=== PATIENT | male | born 1935 | race Caucasian/White ===

== ENCOUNTER 2017-11-21 13:08 | Inpatient (IN) ==
[2017-11-21] MEDS ORDERED: Nitroglycerin 1 INCH/GM PACKET TP ONE (14:16)
--- NOTE | 2017-11-21 14:22 | Emergency Department Note ---
Disposition Clinical Impression: Shortness of breath on exertion Atrial fibrillation Qualifiers: Atrial fibrillation type: unspecified Qualified Code(s): I48.91 - Unspecified atrial fibrillation Congestive heart failure Qualifiers: Heart failure type: combined systolic and diastolic Heart failure chronicity: acute Qualified Code(s): I50.41 - Acute combined systolic (congestive) and diastolic (congestive) heart failure Disposition: Admitted As Inpatient Condition: Undetermined Time of Disposition: 15:16 General Adult HPI - General Chief complaint: ED Arrhythmia/Palpitations Stated complaint: sent from [facility] for afib, no pain /no sob Time Seen by Provider: 11/21/17 13:57 Source: patient, EMS Limitations: no limitations - History of Present Illness HPI Narrative: 82-year-old male with history of hypertension arrives to the emergency department with complaint of shortness of breath as well as constipation. The patient went to an urgent care for constipation was found to be in A. fib. At that time the patient was sent to [facility] emergency department for evaluation. He states that he has been experiencing orthopnea, bilateral lower extremity swelling as well as the shortness of breath for roughly 5-7 days. The patient denies any other complaints and is comfortable here in the emergency department. Chest x-ray demonstrates pulmonary edema and pleural effusions. The patient does have significant bilateral lower extremity swelling. He denies any chest pain this time and denies any other complaints. He has no previous history of atrial fibrillation and takes no anticoagulation. Pain Scale: 0 - Related Data Home Medications Medication Instructions Recorded Confirmed Aspirin Enteric Coated [Aspirin EC] 81 mg PO DAILY 11/21/17 11/21/17 Cetirizine HCl [Zyrtec] 10 mg PO DAILY PRN 11/21/17 11/21/17 Chlordiazepoxide [Librium] 5 mg PO TID PRN 11/21/17 11/21/17 Fexofenadine HCl [Allergy Relief] 180 mg PO DAILY PRN 11/21/17 11/21/17 Fluticasone Propionate Nasal 100 mcg NS DAILY PRN 11/21/17 11/21/17 [Flonase] Lisinopril [Zestril] 40 mg PO BID 11/21/17 11/21/17 Multivitamin [One Daily 1 each PO DAILY 11/21/17 11/21/17 Multivitamin] Terazosin [Hytrin] 5 mg PO BID 11/21/17 11/21/17 Triamcinolone Acetonide 1 appl TP BID PRN 11/21/17 11/21/17 Allergies Allergy/AdvReac Type Severity Reaction Status Date / Time Penicillins Allergy Rash Verified 11/21/17 13:18 All systems ED: reviewed and negative except as stated. Constitutional: Denies: fever, chills, weakness ENT ED: Denies: congestion Cardiovascular: Reports: orthopnea, edema. Denies: chest pain Respiratory: Reports: dyspnea. Denies: cough, wheezes Gastrointestinal: Reports: constipation. Denies: abdominal pain, nausea, vomiting Musculoskeletal: Denies: back pain, neck pain Past Medical History - Past Medical History Attestation: Yes The following information was validated with the patient. Source: patient Medical history: Reports: hypertension Surgical history: Reports: non-contributory - Social History Smoking Status: Never smoker Smokeless Tobacco Status: No Alcohol use: Reports: none Drug use: Reports: none Physical Exam - General Limitations: no limitations General appearance: alert - Head Head exam: atraumatic, normocephalic, normal inspection - Neck Neck exam: Present: normal inspection, full ROM, trachea midline - Respiratory Respiratory exam: Present: other (Rales on examination) - Cardiovascular Cardiovascular exam: Present: regular rate, irregular rhythm, normal heart sounds - Abdominal Exam Abdominal exam: Present: soft, Non-Tender. Absent: tenderness, distention, guarding, rebound, rigidity - Extremities Exam Extremities exam: Present: full ROM, pedal edema. Absent: tenderness - Neurological Exam Neurological exam: Present: alert, oriented X3 - Skin Skin exam: Present: warm, dry, intact, normal color Course Vital Signs Temperature 97.3 F L 11/21/17 13:19 Pulse Rate 96 11/21/17 13:19 Respiratory Rate 20 11/21/17 13:19 Blood Pressure 195/94 11/21/17 13:19 O2 Sat by Pulse Oximetry 96 11/21/17 13:19 Temperature 97.8 F 11/21/17 14:26 Pulse Rate 84 11/21/17 15:26 Respiratory Rate 20 11/21/17 17:30 Blood Pressure 194/111 11/21/17 17:30 O2 Sat by Pulse Oximetry 96 11/21/17 15:26 Oxygen Delivery Oxygen Delivery Room Air Medical Decision Making - MDM Narrative Medical decision making narrative: Patient's workup here in the emergency department demonstrates findings consistent with CHF as well as a new onset atrial fibrillation. The patient was given nitroglycerin for his dyspnea and pulmonary effusions. The patient case was discussed with the hospitalist and he was accepted by Dr. Cabrera. Hospitalist requested consultation to cardiology and they were called. The patient will be admitted to the hospitals at this time. - Lab Data Lab results reviewed: Yes I reviewed the patient's lab results. Result diagrams: 11/21/17 14:19 11/21/17 14:19 Lab Results 11/21/17 11/21/17 11/21/17 Range/Units 14:19 14:19 14:19 WBC 7.2 (4.3-11.1) K/mcL RBC 4.78 (4.19-5.50) M/mcL Hgb 14.4 (12.9-16.9) g/dL Hct 45.0 (37.5-50.1) % MCV 94.1 (83.0-100.0) fL MCH 30.1 (28.0-33.3) pg MCHC 32.0 (31.6-35.5) g/dL RDW 15.5 H (11.5-14.5) % Plt Count 163 (140-400) K/mcL MPV 10.2 (9.4-12.4) fL Immature Gran % 0.3 (0-4) % Seg Neutrophils % 78.1 % Lymphocytes % 13.0 % Monocytes % 7.5 % Eosinophils % 0.7 % Basophils % 0.4 % Neutrophils # 5.6 (1.6-8.9) K/mcL Lymphocytes # 0.9 (0.6-4.6) K/mcL Monocytes # 0.5 (0.0-1.3) K/mcL Eosinophils # 0.1 (0.0-0.6) K/mcL Basophils # 0.0 (0.0-0.2) K/mcL Sodium 141 (136-145) mEq/L Potassium 3.9 (3.5-5.1) mEq/L Chloride 106 (98-107) mEq/L Carbon Dioxide 26 (23-29) mEq/L BUN 18 (8-23) mg/dL Creatinine 1.26 (0.70-1.30) mg/dL Est GFR ( Amer) > 60 (> 60) Est GFR (Non-Af Amer) 55 L (> 60) BUN/Creatinine Ratio 14 (6-26) Glucose 110 H (70-105) mg/dL Calculated Osmolality 295 (280-300) Calcium 9.5 (8.6-10.3) mg/dL Troponin I 0.03 (< 0.04) ng/mL TSH 1.772 (0.340-5.600) mcIU/mL - Radiology Data Radiology results reviewed: Yes I reviewed the patient's radiology results. Chest X-Ray 11/21/17 13:27 IMPRESSION: Pleural effusions and bibasilar atelectasis. Moderate cardiomegaly D/ / Pravin Penaloza MD / Pravin Penaloza MD Interpreting Provider: Pravin Penaloza MD - EKG Data EKG #1 EKG attestation: Yes I reviewed and interpreted this EKG. EKG results narrative: Heart rate [address]pm. [address]. No ST elevation or ST depression noted. Attestation Statement - Attestation Attestation: I examined this patient and my medical decision-making was reviewed with the Resident Physician. I agree with the documented findings, disposition and treatment plan as described except to the extent set forth below. Patient presents to [facility] emergency department with a chief complaint of constipation. The patient went to the urgent care for this complaint and I noticed that he was short of breath. They did a chest x-ray and EKG that showed he was in atrial fibrillation. This is new for him so he was sent to the ED. Patient has been having bowel movements with her small. He has been having some dyspnea on exertion. On examination he is in no acute distress. He is mildly tachypneic. Lung sounds diminished in the bases. Abdomen soft and nontender. Plan. Cardiac workup. Patient has pleural effusions. He has Nitropaste. Given Lasix. KUB does not show a fecal impaction. He is admitted to medicine with cardiology consult. His rate is controlled without IV medications.
[2017-11-21 14:55] LABS: BUN/Creatinine Ratio 14 (6-26); Basophils % 0.4 %; Blood Urea Nitrogen 18 mg/dL (8-23); Calcium 9.5 mg/dL (8.6-10.3); Carbon Dioxide 26 mEq/L (23-29); Chloride 106 mEq/L (98-107); Eosinophils # 0.1 K/mcL (0.0-0.6); Eosinophils % 0.7 %; Glucose 110 mg/dL (70-105); Hemoglobin 14.4 g/dL (12.9-16.9); Immature Granulocytes % 0.3 % (0-4); Lymphocytes # 0.9 K/mcL (0.6-4.6); Mean Corpuscular Hemoglobin 30.1 pg (28.0-33.3); Mean Corpuscular Volume 94.1 fL (83.0-100.0); Mean Platelet Volume 10.2 fL (9.4-12.4); Monocytes # 0.5 K/mcL (0.0-1.3); Monocytes % 7.5 %; Neutrophils # 5.6 K/mcL (1.6-8.9); Osmolality,Calculated 295 (280-300); Platelet Count 163 K/mcL (140-400); Potassium 3.9 mEq/L (3.5-5.1); Red Blood Count 4.78 M/mcL (4.19-5.50); Red Cell Distribution Width 15.5 % (11.5-14.5); Segmented Neutrophils % 78.1 %; Sodium 141 mEq/L (136-145); eGFR For African Americans > 60 (> 60); eGFR For Non-African Americans 55 (> 60)
[2017-11-21 14:57] LABS: Troponin I 0.03 ng/mL (< 0.04)
[2017-11-21 15:10] LABS: Thyroid Stimulating Hormone 1.772 mcIU/mL (0.340-5.600)
[2017-11-21] MEDS ORDERED: NON-FORMULARY MEDICATION 1 EACH EACH (Fexofenadine Hcl [Allergy Relief] 180 MG) PO PRN (17:29)
[2017-11-21] MEDS ORDERED: Loratadine 10 MG TABLET PO PRN (17:29)
[2017-11-21] MEDS ORDERED: Fluticasone Propionate Nasal 50 MCG/SPRAY BOTTLE NS PRN (17:29)
--- NOTE | 2017-11-21 17:30 | Internal Med History&Physical ---
Date of Encounter: 11/21/17 Time of Encounter: 17:28 Assessment and Plan (1) Acute decompensated heart failure Current visit: Yes Status: Acute CXR shows fluid overload, patient with orthopnea and lower extremity edema. - Lasix 20 mg IV BID - Cardiology consultation - Keep head of bed elevated - Strict I/Os - Fluid restrict - Cardiac diet (2) Atrial fibrillation Current visit: Yes Status: Acute New onset, likely due to heart failure Currently HR is within normal limits and not on any rate lowering medications - Lopressor 5 mg IV prn tachycardia - Cardiology consult - Echocardiogram - Heparin drip started based on stroke risk Qualifiers: Atrial fibrillation type: unspecified Qualified Code(s): I48.91 - Unspecified atrial fibrillation (3) Hypertension Current visit: Yes Status: Acute Resume lisinopril Place hydralazine prn Qualifiers: Hypertension type: essential hypertension Qualified Code(s): I10 - Essential (primary) hypertension (4) Congestive heart failure Current visit: Yes Status: Acute Echocardiogram Cardiology consulted, recommendations appreciated Qualifiers: Heart failure type: combined systolic and diastolic Heart failure chronicity: acute Qualified Code(s): I50.41 - Acute combined systolic ( congestive) and diastolic (congestive) heart failure Internal Medicine - H&P: HPI History of present illness: 82-year-old male with history of hypertension arrives to the emergency department with complaint of shortness of breath as well as constipation. The patient went to an urgent care for constipation was found to be in A. fib. and so brought to [facility]. Has complaints of orthopnea, lower extremity swelling and dyspnea. He denies chest pain, n/v, palpitations, diaphoresis. Chest x-ray in ED showed pulmonary edema and pleural effusions. He has not had any recent cardiac workup. Past Med Surg Social Fam HX - Past Medical History Medical history: hypertension - Past Surgical History Surgical History: non-contributory - Social History Smoking Status: Never smoker Smokeless Tobacco Status: No Alcohol use: none Drug use: none Internal Medicine - H&P: Meds Aspirin Enteric Coated [Aspirin EC] 81 mg PO DAILY 11/21/17 [History] Cetirizine HCl [Zyrtec] 10 mg PO DAILY PRN 11/21/17 [History] Chlordiazepoxide [Librium] 5 mg PO TID PRN 11/21/17 [History] Fexofenadine HCl [Allergy Relief] 180 mg PO DAILY PRN 11/21/17 [History] Fluticasone Propionate Nasal [Flonase] 100 mcg NS DAILY PRN 11/21/17 [History] Lisinopril [Zestril] 40 mg PO BID 11/21/17 [History] Multivitamin [One Daily Multivitamin] 1 each PO DAILY 11/21/17 [History] Terazosin [Hytrin] 5 mg PO BID 11/21/17 [History] Triamcinolone Acetonide 1 appl TP BID PRN 11/21/17 [History] 3 Allergy/AdvReac Type Severity Reaction Status Date / Time Penicillins Allergy Rash Verified 11/21/17 13:18 All Systems PM: A 10-system review of systems was performed and is negative for pertinent findings except as documented above in the HPI. - Constitutional Vitals: Temp Pulse Resp BP Pulse Ox 97.8 F 84 20 173/117 96 11/21/17 14:26 11/21/17 15:26 11/21/17 16:44 11/21/17 16:44 11/21/17 15:26 - Head Head exam: Present: atraumatic, normocephalic - Eye Eye exam: Present: PERRL, conjuntiva pink, sclera anicteric Pupils: Present: PERRL - Neck Neck exam general surgery: Present: supple, trachea midline. Absent: lymphadenopathy - Respiratory Respiratory exam: Present: rales. Absent: accessory muscle use, wheezes - Cardiovascular Cardiovascular exam: Present: irregular rhythm, +S1, +S2. Absent: diastolic murmur, gallop, rubs, systolic murmur - GI/Abdominal GI/Abdominal exam: Present: normal bowel sounds, soft, no peritoneal signs. Absent: distended, tenderness - Extremities Exam Extremities exam: Present: warm, radial pulses palpable and symmetrical. Absent : calf tenderness, cyanotic, pedal edema - Neurological Exam Neurological exam: Present: CN II-XII intact, oriented X3, no focal deficits. Absent: pronater drift, facial droop, speech deficit - Skin Skin exam: Present: dry, intact Internal Med - H&P Results - Labs CBC & Chem 7: 11/21/17 14:19 11/21/17 14:19
[2017-11-21] MEDS ORDERED: Sennosides/Docusate Sodium TABLET PO ONE (17:32)
[2017-11-21] MEDS ORDERED: Ondansetron 4 MG/2 ML VIAL IVP PRN (17:33)
[2017-11-21] MEDS ORDERED: *HR* Metoprolol 5 MG/5 ML VIAL IVP PRN (17:38)
[2017-11-21] MEDS ORDERED: *HR* LORazepam 2 MG/ML VIAL IVP ONE (17:39)
[2017-11-21] MEDS ORDERED: Naloxone 0.4 MG/ML INJ IVP PRN (17:40)
[2017-11-21] MEDS ORDERED: Heparin 25,000 UNIT/500 ML D5W 25,000 UNIT/500 ML BAG IVC SCH (17:45)
[2017-11-21 18:27] LABS: Magnesium 2.4 mg/dL (1.6-2.6); Phosphorous 3.5 mg/dL (2.7-4.5)
[2017-11-21 18:32] LABS: Troponin I 0.07 ng/mL (< 0.04)
[2017-11-21 18:41] LABS: Thyroid Stimulating Hormone 1.821 mcIU/mL (0.340-5.600)
[2017-11-21] MEDS: Furosemide 40 MG/4 ML VIAL IVP SCH (22:28)
[2017-11-21] MEDS: Sennosides/Docusate Sodium TABLET PO SCH (22:28)
[2017-11-21] MEDS: Lisinopril 20 MG TABLET PO SCH (22:28)
[2017-11-22 03:33] LABS: Basophils % 0.4 %; Eosinophils # 0.1 K/mcL (0.0-0.6); Hematocrit 45.1 % (37.5-50.1); Hemoglobin 14.2 g/dL (12.9-16.9); Immature Granulocytes % 0.4 % (0-4); Lymphocytes # 1.4 K/mcL (0.6-4.6); Lymphocytes % 17.9 %; Mean Corpuscular HGB Conc 31.5 g/dL (31.6-35.5); Mean Corpuscular Hemoglobin 29.5 pg (28.0-33.3); Mean Corpuscular Volume 93.8 fL (83.0-100.0); Monocytes # 0.7 K/mcL (0.0-1.3); Monocytes % 9.3 %; Neutrophils # 5.6 K/mcL (1.6-8.9); Platelet Count 182 K/mcL (140-400); Red Blood Count 4.81 M/mcL (4.19-5.50); Red Cell Distribution Width 15.5 % (11.5-14.5)
[2017-11-22 03:52] LABS: BUN/Creatinine Ratio 15 (6-26); Blood Urea Nitrogen 19 mg/dL (8-23); Calcium 9.4 mg/dL (8.6-10.3); Carbon Dioxide 29 mEq/L (23-29); Chloride 107 mEq/L (98-107); Glucose 88 mg/dL (70-105); Osmolality,Calculated 300 (280-300); Sodium 144 mEq/L (136-145); eGFR For African Americans > 60 (> 60); eGFR For Non-African Americans 55 (> 60)
[2017-11-22] MEDS ORDERED: *HR* Heparin 5,000 UNIT/ML VIAL IVP PRN ×2 (04:56)
[2017-11-22] MEDS ORDERED: *HR* Heparin 5,000 UNIT/ML VIAL IVP ONE (04:56)
[2017-11-22] MEDS ORDERED: Heparin 25,000 UNIT/500 ML D5W 25,000 UNIT/500 ML BAG IVC SCH (05:00)
[2017-11-22 06:06] LABS: Hematocrit 40.8 % (37.5-50.1); Hemoglobin 13.2 g/dL (12.9-16.9); Mean Corpuscular HGB Conc 32.4 g/dL (31.6-35.5); Mean Corpuscular Hemoglobin 29.7 pg (28.0-33.3); Mean Corpuscular Volume 91.7 fL (83.0-100.0); Mean Platelet Volume 10.8 fL (9.4-12.4); Platelet Count 165 K/mcL (140-400); Red Blood Count 4.45 M/mcL (4.19-5.50); Red Cell Distribution Width 15.6 % (11.5-14.5)
[2017-11-22 06:08] LABS: INR 1.3; Prothrombin Time 13.8 Seconds (9.4-12.1)
[2017-11-22 06:11] LABS: Activated Partial Thrombo Time 69.8 Seconds (26.0-36.0)
--- NOTE | 2017-11-22 08:36 | Cardiology Consult Note ---
<Juan M Daigle Sara - Last Filed: 11/22/17 09:39> Date of Encounter: 11/22/17 Time of Encounter: 08:35 Assessment and Plan (1) Atrial fibrillation Current Visit: Yes Status: Acute Per Cardiology: Will obtain ECG today -- none noted on floor. Average heart rate on telemetry 80 for the past 24 hours, longest possible 1.9 seconds. Apparent new onset A. fib. Currently somewhat rate controlled in the 80s to 100s. We will discontinue IV Lopressor when necessary and start Lopressor 25 mg by mouth twice a day. Current systolic blood pressures in the 150s to 170s. We will continue to titrate for heart rate and blood pressure control. Echo pending. Regarding long-term anticoagulation, has a [id number] of at least 3 (4 now with CHF). Currently on IV heparin drip. Patient denies any active bleeding or blood loss, denies any falls, H&H stable. Patient agreeable to evaluate ellis check for DOAC. Prefers to discuss with family prior to making any final choices regarding long-term anticoagulation of Coumadin versus DOAC. Qualifiers: Atrial fibrillation type: unspecified Qualified Code(s): I48.91 - Unspecified atrial fibrillation (2) Elevated troponin I level Current Visit: Yes Status: Acute Per Cardiology: Troponins 0.03, 0.07, and 0.11. Chest pain free. Mild troponin elevation with peak 0.11 in setting of atrial fibrillation and CHF. Suspect demand ischemia, however further recommendations pending echo. No cardiac rehabilitation consult warranted at this time. Discussion w patient/family: The assessment and plan as outlined above was discussed with the patient who expressed understanding and agreement. All questions were answered. Thank you for involving us in the care of your patient. Please call with any questions. History of Present Illness Consult date: 11/22/17 Requesting physician: Ochoa Hauser Consult reason: Afib, CHF Chief complaint: Constipation, SOB History of present illness: Mr. Sanchez is a 82 year old male with a relevant past medical history of hypertension. Cardiology consult for apparent new onset A. fib, CHF, and shortness of breath. Patient reports presented to urgent care in [place] for concerns of constipation. Patient does report short of breath at rest in the evening and difficulty laying flat he believes for the past few days. Patient believes his weight is up slightly, however unsure of baseline weight does not weigh himself daily. He believed he normally weighs the 250s. He denies any chest pain or palpitations. Denies any dizziness, syncope, falls. Denies any active bleeding or blood loss. Denies any history of smoking or diabetes. No known history of A. fib. He denies any fall history. Denies any recent infectious process. Past Med Surg Social Fam HX - Past Medical History Attestation: Yes The following information was validated with the patient. Source: patient, old records reviewed Medical history: hypertension - Past Surgical History Surgical History: non-contributory - Social History Smoking Status: Never smoker Smokeless Tobacco Status: No Alcohol use: none Drug use: none Medications and Allergies Aspirin Enteric Coated [Aspirin EC] 81 mg PO DAILY 11/21/17 [History] Cetirizine HCl [Zyrtec] 10 mg PO DAILY PRN 11/21/17 [History] Chlordiazepoxide [Librium] 5 mg PO TID PRN 11/21/17 [History] Fexofenadine HCl [Allergy Relief] 180 mg PO DAILY PRN 11/21/17 [History] Fluticasone Propionate Nasal [Flonase] 100 mcg NS DAILY PRN 11/21/17 [History] Lisinopril [Zestril] 40 mg PO BID 11/21/17 [History] Multivitamin [One Daily Multivitamin] 1 each PO DAILY 11/21/17 [History] Terazosin [Hytrin] 5 mg PO BID 11/21/17 [History] Triamcinolone Acetonide 1 appl TP BID PRN 11/21/17 [History] 3 Allergy/AdvReac Type Severity Reaction Status Date / Time Penicillins Allergy Rash Verified 11/21/17 13:18 All Systems Review: The remainder of the systems were reviewed and are negative - Cardiovascular Cardiovascular: as per HPI, dyspnea at rest, leg edema - Respiratory Respiratory: dyspnea Physical Examination Vital Signs, Last 4 Hours Temp Pulse Resp BP Pulse Ox 11/22/17 06:58 97.6 F 74 17 157/72 98 11/22/17 05:03 97.3 F L 78 17 161/81 97 General: Conversant, No Apparent Distress HEENT: Atraumatic, Normocephaly, Mucus Membranes Moist Neck: No JVD, Normal carotid pulses Cardiac: No Murmur, Other (Irregularly irregular) Lungs: Normal Breath Sounds, No Wheeze, Rales, Rhonchi, Other (Slightly diminished breath sounds to bilateral bases) Neuro: Alert and responsive, No focal deficits noted Abdomen: Soft, Non-Tender Skin: No rashes noted on visualized skin Musculoskeletal: No Chest Wall Tenderness Extremities: No Clubbing, No Cyanosis, Normal Pulses, Other (+1 pitting edema to bilateral lower extremities) Results 11/22/17 05:32 11/22/17 02:32 Lab Results Laboratory Tests 11/21/17 11/21/17 11/21/17 14:19 17:53 22:40 INR Creatinine Est GFR (Non-Af Amer) Magnesium 2.4 Troponin I 0.03 0.07 H* 0.11 H* TSH 1.772 11/22/17 11/22/17 02:32 05:32 INR 1.3 Creatinine 1.26 Est GFR (Non-Af Amer) 55 L Magnesium Troponin I TSH ITS Impressions Chest X-Ray 11/21/17 13:27 IMPRESSION: Pleural effusions and bibasilar atelectasis. Moderate cardiomegaly D/ / Pravin Penaloza MD / Pravin Penaloza MD Interpreting Provider: Pravin Penaloza MD X-Ray 11/21/17 15:02 IMPRESSION: Small to moderate stool burden. No air-filled dilated loops of bowel. D/ / Radha Cleveland MD / Radha Cleveland MD Interpreting Provider: Radha Cleveland MD Intake & Output 11/19/17 11/20/17 11/21/17 11/22/17 23:59 23:59 23:59 23:59 Intake Total 500 / 500 146 / 146 Balance 500 / 500 146 / 146 Weight 121.563 kg 121.5 kg Active Medications Aspirin (Aspirin Ec) 81 mg PO DAILY STACIE Stop: 05/24/18 09:01 Chlordiazepoxide HCl (Librium) 5 mg PO TID PRN PRN Reason: Anxiety Stop: 05/23/18 17:30 Last Admin: 11/21/17 23:10 Dose: 5 mg Fluticasone Propionate (Flonase) 100 mcg NS DAILY PRN; Protocol PRN Reason: Allergy Symptoms Stop: 05/23/18 17:30 Furosemide (Lasix) 20 mg IVP BID [facility] Stop: 11/23/17 09:01 Last Admin: 11/21/17 22:28 Dose: 20 mg Heparin Sodium (Porcine) (Heparin) 4,000 unit IVP Q6HR PRN PRN Reason: SEE COMMENTS Stop: 05/24/18 04:57 Heparin Sodium (Porcine) (Heparin) 2,000 unit IVP Q6H PRN PRN Reason: SEE COMMENTS Stop: 05/24/18 04:57 Heparin Sodium/Dextrose (Heparin 25,000 Unit/500 Ml D5w) 25,000 unit in 500 mls @ 19.936 mls/hr IVC .Q24H STACIE; 8.2 UNIT/KG/HR PRN Reason: Protocol Stop: 05/24/18 05:01 Last Admin: 11/22/17 05:24 Dose: 8.2 unit/kg/hr, 19.936 mls/hr Lisinopril (Zestril) 40 mg PO BID [facility] Stop: 05/23/18 21:01 Last Admin: 11/21/17 22:28 Dose: 40 mg Loratadine (Claritin) 10 mg PO DAILY PRN PRN Reason: Allergy Symptoms Metoprolol Tartrate (Lopressor) 5 mg IVP Q6HR PRN PRN Reason: SEE COMMENTS Stop: 05/23/18 17:39 Multivitamins/Calcium (Thera M Plus) 1 tab PO DAILY [facility] Stop: 05/24/18 09:01 Naloxone HCl (Narcan) 0.4 mg IVP Q2MIN PRN PRN Reason: SEE COMMENTS Stop: 05/23/18 17:41 Ondansetron HCl (Zofran) 4 mg IVP Q8HR PRN; Protocol PRN Reason: Nausea And Vomiting Stop: 05/23/18 17:34 Senna/Docusate Sodium (Senna Plus) 2 each PO BID STACIE PRN Reason: Protocol Stop: 05/23/18 21:01 Last Admin: 11/21/17 22:28 Dose: 2 each Terazosin HCl (Hytrin) 5 mg PO BID STACIE Stop: 05/23/18 21:01 Last Admin: 11/21/17 22:28 Dose: 5 mg Triamcinolone Acetonide (Kenalog) 1 appl TP BID PRN PRN Reason: Rash - Imaging and Cardiology Chest Xray: report reviewed Echo: pending - EKG Interpretation EKG results cardiology: other (No ECG available for review, 24-hour telemetry reviewed with average heart rate 84, longest possible 1.9 seconds, A. fib currently in the 100s) Consult Discharge Plan - Plan Referrals: Reilly Martin MD [Primary Care Provider] - (web request sent on 11/22/17) <Marianne Espinoza - Last Filed: 11/22/17 13:26> Date of Encounter: 11/22/17 - Attending Attestation I have personally performed a face to face evaluation on this patient. I have reviewed and agree with the care plan. History and Exam by me shows: 82 YOM new onset Afib rate controlled on IV heparin with ECHO pending. Trops mildly elevated with possible orthopnea (poor historian) and unremarkable EKG. I do believe patient needs an ischemic work up invasive vs non invasive depending on ECHO which will help risk stratification. Likely will need NOAC on discharge due to elevated Chads Vasc score. Assessment and Plan Discussion w patient/family: The assessment and plan as outlined above was discussed with the patient and/or family members who expressed understanding and agreement. All questions were answered. Thank you for involving us in the care of your patient. Please call with any questions. History of Present Illness History of present illness: Mr. Sanchez is a 82 year old male All Systems Review: The remainder of the systems were reviewed and are negative Physical Examination Vital Signs, Last 4 Hours Temp Pulse Resp BP Pulse Ox 11/22/17 11:45 97.9 F 64 18 152/77 95 Results 11/22/17 05:32 11/22/17 02:32 Lab Results 11/21/17 11/21/17 11/22/17 17:53 22:40 02:32 WBC 7.9 Hgb 14.2 Hct 45.1 Plt Count 182 INR APTT Sodium Potassium Chloride Carbon Dioxide BUN Creatinine Glucose Calcium Magnesium 2.4 Troponin I 0.07 H* 0.11 H* TSH 1.821 11/22/17 11/22/17 11/22/17 02:32 03:32 05:32 WBC 6.5 Hgb 13.2 Hct 40.8 Plt Count 165 INR APTT 57.7 H Sodium 144 Potassium 4.0 Chloride 107 Carbon Dioxide 29 BUN 19 Creatinine 1.26 Glucose 88 Calcium 9.4 Magnesium Troponin I TSH 11/22/17 11/22/17 05:32 11:12 WBC Hgb Hct Plt Count INR 1.3 APTT 69.8 H 66.0 H Sodium Potassium Chloride Carbon Dioxide BUN Creatinine Glucose Calcium Magnesium Troponin I TSH
[2017-11-22] MEDS: Aspirin Enteric Coated 81 MG Tablet PO SCH (09:10)
[2017-11-22] MEDS: Lisinopril 20 MG TABLET PO SCH ×2 (09:10→21:07)
[2017-11-22] MEDS: Multivit/Ca/Min/Fe/FA 1 TAB TABLET PO SCH (09:10)
[2017-11-22] MEDS: Sennosides/Docusate Sodium TABLET PO SCH ×3 (09:10→21:12)
[2017-11-22] MEDS: Furosemide 40 MG/4 ML VIAL IVP SCH ×2 (09:11→21:08)
--- NOTE | 2017-11-22 10:27 | Event Note ---
Date of Encounter: 11/22/17 Time of Encounter: 10:20 - Cardiology Event Note ECG showed A. fib in the 80s. 24-hour I and O shows +646ml, on IV Lasix. We will start strict I&O, daily weights, 2 L fluid restriction. [place] check for Xarelto 20 mg by mouth daily pending. Now at echo.
[2017-11-22] MEDS ORDERED: *HR* Rivaroxaban 15 MG TABLET PO ONE (14:45)
--- NOTE | 2017-11-22 16:50 | Internal Med Progress Note ---
Date of Encounter: 11/22/17 Time of Encounter: 10:45 - Assessment and plan (1) Acute systolic (congestive) heart failure Current Visit: Yes Status: Acute Assessment and plan: He does have acute CHF exacerbation Reviewed CXR showed inc vasuclar congestion and b/l pleural effusion cont IV Lasix 20 BID reviewed 2 D Ehco showed LVEF 35-40%, Moderate global LV systolic dysfunction Cont ASA, Metoprolol Check FLP May need LHC in AM will keep him NPO after mid night will talk to Card (2) NSTEMI (non-ST elevated myocardial infarction) Current Visit: Yes Status: Acute Assessment and plan: cont heparin gtt Trop elevated @ 0.11 Card consulted no acute ischemic changes (3) HLD (hyperlipidemia) Current Visit: Yes Status: Acute Qualifiers: Qualified Code(s): E78.5 - Hyperlipidemia, unspecified (4) Atrial fibrillation Current Visit: Yes Status: Acute Assessment and plan: rate controlled on Metoprolol on Heparin for anti coag switched to Xarelto for anti coag today Qualifiers: Atrial fibrillation type: unspecified Qualified Code(s): I48.91 - Unspecified atrial fibrillation (5) Hypertension Current Visit: Yes Status: Acute Assessment and plan: stable with home meds Qualifiers: Hypertension type: essential hypertension Qualified Code(s): I10 - Essential (primary) hypertension (6) CKD (chronic kidney disease) stage 2, GFR 60-89 ml/min Current Visit: Yes Status: Acute Assessment and plan: He does ahve CKD-2 If Card wants to do LHC will give Acetylcysteine Avoid nephrotoxic meds - Subjective Interval history: 82-year-old male with history of hypertension presented to the emergency department with complaint of shortness of breath as well as constipation. The patient went to an urgent care for constipation was found to be in A. fib. and so brought to [facility]. Has complaints of orthopnea, lower extremity swelling and dyspnea. He denies chest pain, n/v, palpitations, diaphoresis. Chest x-ray in ED showed pulmonary edema and pleural effusions. He has not had any recent cardiac workup. Pt was started on IV Lasix, and placed him on melangeur operator. Pt states he is feeling better now. Denied any CP. Wants to go home. - Constitutional Vitals: Temp Pulse Resp BP Pulse Ox 97.4 F L 70 16 136/72 95 03/15/18 15:16 11/22/17 15:16 11/22/17 15:16 11/22/17 15:16 11/22/17 15:16 General appearance: Present: A&O X 3, no acute distress, answers questions appropriately - Head Head exam: Present: atraumatic, normal inspection - Respiratory Respiratory exam: Present: decreased breath sounds. Absent: rales, respiratory distress, rhonchi, wheezes - Cardiovascular Cardiovascular exam: Present: irregular rhythm, +S1, +S2. Absent: tachycardia - GI/Abdominal GI/Abdominal exam: Present: normal bowel sounds, soft. Absent: rebound, rigid, tenderness - Extremities Exam Extremities exam: Present: pedal edema (1+). Absent: calf tenderness, tenderness - Back Exam Back exam: Absent: CVA tenderness (L), CVA tenderness (R) - Neurological Exam Neurological exam: Present: alert, oriented X3 Internal Medicine: Result - Labs CBC & Chem 7: 11/22/17 05:32 11/22/17 02:32 Labs: Short CBC 11/22/17 11/22/17 Range/Units 02:32 05:32 WBC 7.9 6.5 (4.3-11.1) K/mcL Hgb 14.2 13.2 (12.9-16.9) g/dL Hct 45.1 40.8 (37.5-50.1) % Plt Count 182 165 (140-400) K/mcL Neutrophils # 5.6 (1.6-8.9) K/mcL BMP 11/22/17 02:32 Sodium 144 Potassium 4.0 Chloride 107 Carbon Dioxide 29 BUN 19 Creatinine 1.26 Glucose 88 Calcium 9.4 Cardiac Enzymes 11/21/17 11/21/17 Range/Units 17:53 22:40 Troponin I 0.07 H* 0.11 H* (< 0.04) ng/mL - ABG Interpretation ABG results: PT/INR, D-dimer PT 13.8 Seconds (9.4-12.1) H 11/22/17 05:32 - Impressions Impressions Echocardiogram 11/22/17 17:32 Impressions: LVEF 35-40%. Moderate global LV systolic dysfunction. Mild concentric left ventricular hypertrophy. Indeterminate diastolic function. Normal right ventricular size with mild reduction in function. Mild mitral regurgitation. Mild tricuspid regurgitation. Mild pulmonic regurgitation. Mild pulmonary hypertension by TR gradient. IVC is not well visualized. Left Ventricular Wall Motion: Rest Echo Findings The apex, apical inferior, mid inferior, basal inferior, apical anterior, mid anterior, basal anterior, apical septal, mid inferior septal, basal inferior septal, apical lateral, mid anterior lateral, basal anterior lateral, mid anterior septal, mid inferior lateral, basal anterior septal and basal inferior lateral urbano were hypokinetic. Findings: Study Quality * Technically adequate exam. ECG Findings * Atrial fibrillation. Left Ventricle * LVEF 35-40%. * Mild concentric left ventricular hypertrophy. * Indeterminate diastolic function. * Normal LV size. Right Ventricle * Normal right ventricular size with mild reduction in function. Left Atrium * Mildly dilated left atrium. Right Atrium * Moderately dilated right atrium. Aortic Valve * Aortic valve not well visualized. * No aortic stenosis. * Mild aortic regurgitation. Mitral Valve * No mitral stenosis. * Mildly thickened mitral valve leaflets. * Mild mitral regurgitation. Tricuspid Valve * Normal tricuspid valve structure. * Mild tricuspid regurgitation. Pulmonic Valve * Pulmonic valve is not well visualized. * No pulmonic stenosis. * Mild pulmonic regurgitation. Pulmonary Artery * Pulmonary artery not well visualized. Aorta * Normally sized aortic root. Pericardium * There is no pericardial effusion present. Interatrial Septum * Interatrial septum not well evaluated. IVC * The IVC is not well evaluated. Consult Discharge Plan - Plan Referrals: Reilly Martin MD [Primary Care Provider] - (web request sent on 11/22/17)
[2017-11-23 04:23] LABS: Basophils % 0.5 %; Eosinophils # 0.1 K/mcL (0.0-0.6); Eosinophils % 1.7 %; Hematocrit 40.9 % (37.5-50.1); Hemoglobin 13.4 g/dL (12.9-16.9); Immature Granulocytes % 0.2 % (0-4); Lymphocytes # 1.3 K/mcL (0.6-4.6); Lymphocytes % 21.1 %; Mean Corpuscular HGB Conc 32.8 g/dL (31.6-35.5); Mean Corpuscular Volume 91.5 fL (83.0-100.0); Mean Platelet Volume 10.7 fL (9.4-12.4); Monocytes # 0.7 K/mcL (0.0-1.3); Monocytes % 10.3 %; Neutrophils # 4.2 K/mcL (1.6-8.9); Platelet Count 148 K/mcL (140-400); Red Blood Count 4.47 M/mcL (4.19-5.50); Red Cell Distribution Width 15.4 % (11.5-14.5); Segmented Neutrophils % 66.2 %
[2017-11-23 05:50] LABS: Calcium 8.9 mg/dL (8.6-10.3); Potassium 3.8 mEq/L (3.5-5.1)
--- NOTE | 2017-11-23 08:06 | Cardiology Progress Note ---
Date of Encounter: 11/23/17 Time of Encounter: 08:00 Assessment and Plan (1) Atrial fibrillation Current Visit: Yes Status: Acute Per Cardiology: Suspected new onset A. fib. Average heart rate on telemetry 74 for the past 12 hours. Lopressor 25 mg by mouth twice a day. EF on echo 35-40%. We will switch to Toprol-XL 50 mg by mouth daily. Regarding long-term anticoagulation, has a [id number] of at least 3 (4 now with CHF). Now off IV heparin drip. Started on Xarelto 15mg by mouth daily yesterday evening per primary service-- will hold for now due to EF being around 35-40% and potential for catheterization. Ice check completed and monthly cost of $28. Plan to resume after catheterization. Qualifiers: Atrial fibrillation type: unspecified Qualified Code(s): I48.91 - Unspecified atrial fibrillation (2) Elevated troponin I level Current Visit: Yes Status: Acute Per Cardiology: Mild troponin elevation with peak 0.11 in setting of atrial fibrillation and CHF. Suspect demand ischemia, however EF noted to be 35-40% on echo. Possible tachycardia induced. Patient agreeable to catheterization today. Discussed and reviewed with Dr. Stafford. Further recommendations after catheterization. Discussion w patient/family: The assessment and plan as outlined above was discussed with the patient who expressed understanding and agreement. All questions were answered. Thank you for involving us in the care of your patient. Please call with any questions. Subjective Principal diagnosis: Afib Interval history: Patient reports shortness of breath has improved. He denies any chest pain. Reports difficulty sleeping last night and anxious to go home. Objective Vital Signs, Last 4 Hours Temp Pulse Resp BP Pulse Ox 11/23/17 07:08 97.7 F 79 18 116/90 96 General: Conversant, No Apparent Distress HEENT: Atraumatic, Normocephaly, Mucus Membranes Moist Neck: No JVD, Normal carotid pulses Cardiac: No Murmur, Other (Irregularly irregular) Lungs: Normal Breath Sounds, No Wheeze, Rales, Rhonchi Neuro: Alert and responsive, No focal deficits noted Abdomen: Soft, Non-Tender Skin: No rashes noted on visualized skin Musculoskeletal: No Chest Wall Tenderness Extremities: No Clubbing, No Cyanosis, Normal Pulses, Other (+1 pitting edema to bilateral lower extremities) Results 11/23/17 03:55 11/23/17 03:55 Lab Results Laboratory Tests 11/21/17 11/23/17 22:40 03:55 Creatinine 1.39 H Est GFR (Non-Af Amer) 49 L Troponin I 0.11 H* Impressions Echocardiogram 11/22/17 17:32 Impressions: LVEF 35-40%. Moderate global LV systolic dysfunction. Mild concentric left ventricular hypertrophy. Indeterminate diastolic function. Normal right ventricular size with mild reduction in function. Mild mitral regurgitation. Mild tricuspid regurgitation. Mild pulmonic regurgitation. Mild pulmonary hypertension by TR gradient. IVC is not well visualized. Left Ventricular Wall Motion: Rest Echo Findings The apex, apical inferior, mid inferior, basal inferior, apical anterior, mid anterior, basal anterior, apical septal, mid inferior septal, basal inferior septal, apical lateral, mid anterior lateral, basal anterior lateral, mid anterior septal, mid inferior lateral, basal anterior septal and basal inferior lateral urbano were hypokinetic. Findings: Study Quality * Technically adequate exam. ECG Findings * Atrial fibrillation. Left Ventricle * LVEF 35-40%. * Mild concentric left ventricular hypertrophy. * Indeterminate diastolic function. * Normal LV size. Right Ventricle * Normal right ventricular size with mild reduction in function. Left Atrium * Mildly dilated left atrium. Right Atrium * Moderately dilated right atrium. Aortic Valve * Aortic valve not well visualized. * No aortic stenosis. * Mild aortic regurgitation. Mitral Valve * No mitral stenosis. * Mildly thickened mitral valve leaflets. * Mild mitral regurgitation. Tricuspid Valve * Normal tricuspid valve structure. * Mild tricuspid regurgitation. Pulmonic Valve * Pulmonic valve is not well visualized. * No pulmonic stenosis. * Mild pulmonic regurgitation. Pulmonary Artery * Pulmonary artery not well visualized. Aorta * Normally sized aortic root. Pericardium * There is no pericardial effusion present. Interatrial Septum * Interatrial septum not well evaluated. IVC * The IVC is not well evaluated. Active Medications Aspirin (Aspirin Ec) 81 mg PO DAILY STACIE Stop: 05/24/18 09:01 Last Admin: 11/22/17 09:10 Dose: 81 mg Chlordiazepoxide HCl (Librium) 5 mg PO TID PRN PRN Reason: Anxiety Stop: 05/23/18 17:30 Last Admin: 11/22/17 23:05 Dose: 5 mg Fluticasone Propionate (Flonase) 100 mcg NS DAILY PRN; Protocol PRN Reason: Allergy Symptoms Stop: 05/23/18 17:30 Furosemide (Lasix) 20 mg IVP BID [facility] Stop: 11/23/17 09:01 Last Admin: 11/22/17 21:08 Dose: 20 mg Lisinopril (Zestril) 40 mg PO BID [facility] Stop: 05/23/18 21:01 Last Admin: 11/22/17 21:07 Dose: 40 mg Loratadine (Claritin) 10 mg PO DAILY PRN PRN Reason: Allergy Symptoms Metoprolol Tartrate (Lopressor) 25 mg PO BID [facility] Stop: 05/24/18 09:01 Last Admin: 11/22/17 21:07 Dose: 25 mg Multivitamins/Calcium (Thera M Plus) 1 tab PO DAILY [facility] Stop: 05/24/18 09:01 Last Admin: 11/22/17 09:10 Dose: 1 tab Naloxone HCl (Narcan) 0.4 mg IVP Q2MIN PRN PRN Reason: SEE COMMENTS Stop: 05/23/18 17:41 Ondansetron HCl (Zofran) 4 mg IVP Q8HR PRN; Protocol PRN Reason: Nausea And Vomiting Stop: 05/23/18 17:34 Rivaroxaban (Xarelto) 15 mg PO DAILY@1700 [facility] Stop: 05/25/18 17:01 Senna/Docusate Sodium (Senna Plus) 2 each PO BID STACIE PRN Reason: Protocol Stop: 05/23/18 21:01 Last Admin: 11/22/17 21:12 Dose: Not Given Terazosin HCl (Hytrin) 5 mg PO BID [facility] Stop: 05/23/18 21:01 Last Admin: 11/22/17 21:07 Dose: 5 mg Triamcinolone Acetonide (Kenalog) 1 appl TP BID PRN PRN Reason: Rash - Imaging and Cardiology Echo: report reviewed - EKG Interpretation EKG results cardiology: other (Telemetry reviewed with average heart rate the past 12 hours 74, currently A. fib in the 60s) Consult Discharge Plan - Plan Referrals: Reilly Martin MD [Primary Care Provider] - (web request sent on 11/22/17)
[2017-11-23] MEDS: *HR* Acetylcysteine 20% 600 MG/3 ML ORAL SYRINGE PO SCH ×2 (09:27→22:24)
[2017-11-23] MEDS: Lisinopril 20 MG TABLET PO SCH (09:28)
[2017-11-23] MEDS: Metoprolol XL (24 HR) Succ 50 MG TAB.ER.24H PO SCH (09:28)
[2017-11-23] MEDS: Sennosides/Docusate Sodium TABLET PO SCH ×2 (09:28→21:53)
[2017-11-23] MEDS: Multivit/Ca/Min/Fe/FA 1 TAB TABLET PO SCH (09:28)
[2017-11-23] MEDS: Aspirin Enteric Coated 81 MG Tablet PO SCH (09:28)
[2017-11-23] MEDS ORDERED: Heparin 1,000 UNITS/500 mL 500 ML ONE (13:48)
[2017-11-23] MEDS ORDERED: 0.9 % Sodium Chloride 1,000 ML ONE ×2 (13:48→14:09)
[2017-11-23] MEDS ORDERED: *HR* Heparin 10,000 UNIT/10 ML VIAL ONE (13:48)
[2017-11-23] MEDS ORDERED: ISOVUE-370 200 ML INFUS..BTL IV ONE (13:48)
[2017-11-23] MEDS ORDERED: *HR* Midazolam HCl 2 MG/2 ML VIAL ONE (14:08)
[2017-11-23] MEDS ORDERED: *HR* FentaNYL (PF) 100 MCG/2 ML VIAL ONE (14:09)
--- NOTE | 2017-11-23 14:33 | Internal Med Progress Note ---
Date of Encounter: 11/23/17 Time of Encounter: 10:30 - Assessment and plan (1) Acute systolic (congestive) heart failure Current Visit: Yes Status: Acute Assessment and plan: He does have acute CHF exacerbation Reviewed CXR showed inc vasuclar congestion and b/l pleural effusion Held Lasix reviewed 2 D Ehco showed LVEF 35-40%, Moderate global LV systolic dysfunction Scheduled for LHC today Cont ASA, Metoprolol Since he does have CKD- held Lasix , ACEI and started him on Acetylcysteine (2) NSTEMI (non-ST elevated myocardial infarction) Current Visit: Yes Status: Acute Assessment and plan: Scheduled for LHC today (3) HLD (hyperlipidemia) Current Visit: Yes Status: Acute Assessment and plan: check FLP Qualifiers: Qualified Code(s): E78.5 - Hyperlipidemia, unspecified (4) Atrial fibrillation Current Visit: Yes Status: Acute Assessment and plan: rate controlled with Metoprolol Resume Xarelto after LHC today Qualifiers: Atrial fibrillation type: unspecified Qualified Code(s): I48.91 - Unspecified atrial fibrillation (5) Hypertension Current Visit: Yes Status: Acute Assessment and plan: stable with current meds Qualifiers: Hypertension type: essential hypertension Qualified Code(s): I10 - Essential (primary) hypertension (6) CKD (chronic kidney disease) stage 2, GFR 60-89 ml/min Current Visit: Yes Status: Acute Assessment and plan: stable Cr cont close monitoring Will give gentle hydration if needed after LHC - Subjective Interval history: 82-year-old male with history of hypertension presented to the emergency department with complaint of shortness of breath as well as constipation. The patient went to an urgent care for constipation was found to be in A. fib. and so brought to [facility]. Has complaints of orthopnea, lower extremity swelling and dyspnea. He denies chest pain, n/v, palpitations, diaphoresis. Chest x-ray in ED showed pulmonary edema and pleural effusions. He has not had any recent cardiac workup. Pt states he is feeling better now. Denied any CP/ SOB. No events over night - Constitutional Vitals: Temp Pulse Resp BP Pulse Ox 97.6 F 76 15 175/80 97 11/23/17 10:34 11/23/17 10:34 11/23/17 10:34 11/23/17 12:19 11/23/17 10:34 General appearance: Present: A&O X 3, no acute distress, answers questions appropriately - Head Head exam: Present: atraumatic, normal inspection - Neck Neck exam general surgery: Present: supple - Respiratory Respiratory exam: Present: decreased breath sounds. Absent: rales, respiratory distress, rhonchi, wheezes - Cardiovascular Cardiovascular exam: Present: RRR, +S1, +S2. Absent: tachycardia - GI/Abdominal GI/Abdominal exam: Present: normal bowel sounds, soft. Absent: rebound, rigid, tenderness - Extremities Exam Extremities exam: Present: pedal edema (trace). Absent: calf tenderness, tenderness - Back Exam Back exam: Absent: CVA tenderness (L), CVA tenderness (R) - Neurological Exam Neurological exam: Present: alert, oriented X3 - Psychiatric Psychiatric exam: Present: normal affect, normal mood Internal Medicine: Result - Labs CBC & Chem 7: 11/23/17 03:55 11/23/17 03:55 Labs: Short CBC 11/23/17 Range/Units 03:55 WBC 6.3 (4.3-11.1) K/mcL Hgb 13.4 (12.9-16.9) g/dL Hct 40.9 (37.5-50.1) % Plt Count 148 (140-400) K/mcL Neutrophils # 4.2 (1.6-8.9) K/mcL BMP 11/23/17 03:55 Sodium 142 Potassium 3.8 Chloride 108 H Carbon Dioxide 26 BUN 24 H Creatinine 1.39 H Glucose 97 Calcium 8.9 - ABG Interpretation ABG results: PT/INR, D-dimer PT 13.8 Seconds (9.4-12.1) H 11/22/17 05:32 - Impressions Impressions Echocardiogram 11/22/17 17:32 Impressions: LVEF 35-40%. Moderate global LV systolic dysfunction. Mild concentric left ventricular hypertrophy. Indeterminate diastolic function. Normal right ventricular size with mild reduction in function. Mild mitral regurgitation. Mild tricuspid regurgitation. Mild pulmonic regurgitation. Mild pulmonary hypertension by TR gradient. IVC is not well visualized. Left Ventricular Wall Motion: Rest Echo Findings The apex, apical inferior, mid inferior, basal inferior, apical anterior, mid anterior, basal anterior, apical septal, mid inferior septal, basal inferior septal, apical lateral, mid anterior lateral, basal anterior lateral, mid anterior septal, mid inferior lateral, basal anterior septal and basal inferior lateral urbano were hypokinetic. Findings: Study Quality * Technically adequate exam. ECG Findings * Atrial fibrillation. Left Ventricle * LVEF 35-40%. * Mild concentric left ventricular hypertrophy. * Indeterminate diastolic function. * Normal LV size. Right Ventricle * Normal right ventricular size with mild reduction in function. Left Atrium * Mildly dilated left atrium. Right Atrium * Moderately dilated right atrium. Aortic Valve * Aortic valve not well visualized. * No aortic stenosis. * Mild aortic regurgitation. Mitral Valve * No mitral stenosis. * Mildly thickened mitral valve leaflets. * Mild mitral regurgitation. Tricuspid Valve * Normal tricuspid valve structure. * Mild tricuspid regurgitation. Pulmonic Valve * Pulmonic valve is not well visualized. * No pulmonic stenosis. * Mild pulmonic regurgitation. Pulmonary Artery * Pulmonary artery not well visualized. Aorta * Normally sized aortic root. Pericardium * There is no pericardial effusion present. Interatrial Septum * Interatrial septum not well evaluated. IVC * The IVC is not well evaluated. Consult Discharge Plan - Plan Referrals: Reilly Martin MD [Primary Care Provider] - (web request sent on 11/22/17)
--- NOTE | 2017-11-23 14:44 | Pre-Sedation Evaluation ---
Pre-sedation evaluation - Pre-sedation checklist Date of procedure: 11/23/17 Procedure: heart cath Recent Vitals: Last Vital Signs Temp 97.6 F 11/23/17 10:34 Pulse 76 11/23/17 10:34 Resp 15 11/23/17 10:34 BP 175/80 11/23/17 12:19 Pulse Ox 97 11/23/17 10:34 H&P (including ROS) documented in medical record: Yes Previous reaction to sedatives/anesthetics: Unknown Dietary Status: NPO after Midnight Airway Assessment: Patient can open mouth completely, TMJ function normal Dentition: full dentition Possible difficult airway: No ASA Classification *see protocol: CLASS III-Severe systemic disease Plan of Care: Pt appropriate candidate for procedure/moderate/conscious sedation , Risks/benefits of procedure/sedation discussed w/ patient/family, If not NPO; Risk of intake outweiged by necessity to perform procedure
[2017-11-23] MEDS ORDERED: 0.9 % Sodium Chloride 1,000 ML IVC SCH ×2 (15:30→17:31)
--- NOTE | 2017-11-23 15:40 | Invasive Diagnostic Lab Proc ---
Name: Moncho Sanchez Date of Study: 11/23/2017 Date: 1935 Ht: 70.0in Medical Record#: [id number] Age: 82 Wt: 255.52lb Gender: Male BSA: 2.32 Order #: [id number] BMI: 36.66 Physicians Procedure Physician: Meng Stafford DO Referring MD: Referring MD: Staff Name Position Time In Alexandro Jarrett RN Appraiser Timber 02:40 PM Makr Nowak RT (R) Scrub 02:40 PM Shantelle, Kaela RT (R) Monitor 02:40 PM Indications Indication Cardiomyopathy Non-Stemi Procedures Performed Procedure L HRT ARTERY/VENTRICLE ANGIO Pre-Procedure Checklist Informed consent is complete signed and on chart. H&P is on chart. ID band is on and ID verified with patient. Patient NPO for procedure The procedure was described for the patient and questions were answered. ECG is on chart. Rhythm: NSR Plan of Care Patient will tolerate the procedure without complications. Adequate level of comfort will be maintained. Hemodynamics will remain stable Patient will recover from procedure without complications. Respiratory function will be maintained. Cardiac rhythm will remain stable. Patient temperature will be maintained. Patient and/or family have verbalized understanding of the procedure. Patient Education Chief Complaint/Reason for Test: Cardiac Cath Developmental Category: Geriatric (65+ years) Developmentally Appropriate for Age: Yes Learning Barriers: None Education Needs: Procedure Education Method: Verbal Information Taught: Cardiac Cath Educational Evaluation: Able to repeat information Intravenous Access Time IV Size Location DC'd Fluid/Drip Rate Units RN 20g 1 1/4" Peripheral-Lock On Arrival Lt Wrist 0.9NaCl 25 ml/hr Alexandro Jarrett RN Allergies Penicillins Vital Signs Time BP (mmHg) HR (bpm) O2 Sat. RR (bpm) LOC 02:41 PM / % 5 = Fully awake and oriented or at pre-proc level 02:41 PM / % 5 = Fully awake and oriented or at pre-proc level 02:41 PM / % 4 = Oriented but drowsy 03:13 PM 169 / 102 78 97 % 28 03:19 PM 167 / 94 78 97 % 30 03:24 PM 174 / 95 64 97 % 19 02:44 PM 169 / 97 74 99 % 21 02:48 PM 170 / 96 84 99 % 02:53 PM 154 / 93 75 97 % 02:58 PM 168 / 89 75 96 % 18 03:03 PM 148 / 92 78 97 % 03:08 PM 161 / 92 83 98 % 22 Procedural Medications Time Medication Dose Units Method Given By 02:41 PM Oxygen 2 L/min nasal cannula Alexandro Jarrett RN 02:58 PM Versed 2 mg Intravenous Alexandro Jarrett RN 02:59 PM Lidocaine 2% 10 ml Subcutaneous Meng Stafford DO ASA Classification: CLASS II- Mild systemic disease (i.e. well-controlled diabetes, hypertension, asthma, cigarette smoking) Carlene Score Preprocedure Postprocedure Activity 2- Moves 4 extremities sustained head lift Activity Circulation 2- SBP +/= 20 points of pre-anesthetic level Circulation Consciousness 2- Awake and alert oriented x 3 Consciousness O2 Saturation 2- Able to maintain O2 satruation of 92% on room air O2 Saturation Respiratory 2- Able to deep breathe and cough well Respiratory Total Score 10 Total Score Contrast Agent: Isovue Diagnostic Contrast: 65 ml Total Contrast: 65 ml Fluoro Dose: 341 mGy Procedure Log Time Note Enter By 02:07 PM CathStat 02:08 PM 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 tsites 02:40 PM Procedure start 14:40 tsites 02:40 PM Alexandro Jarrett RN Position: Appraiser Timber Time in: 14:40 tsites 02:40 PM Mark Nowak RT (R) Position: Scrub Time in: 14:40 tsites 02:40 PM Kaela Pepper RT (R) Position: Monitor Time in: 14:40 tsites 02:41 PM Time: 14:41 Oxygen on at 2 L/min per nasal cannula by Alexandro Jarrett RN tsites 02:41 PM Time: 14:41 Patient comfortable and pain free: Yes tsites 02:41 PM Time: 14:41LOC: 5 = Fully awake and oriented or at pre-proc level tsites 02:41 PM Clinical Presentation: Non-STEMI tsites 02:43 PM Vitals capture started with the following parameters, Patient=Adult, Interval=5 min, Initial Kldogdsm=181 mmHg, Deflation Rate=5 mmHg, Cuff placed on Right Arm 02:43 PM Recorded ECG: HR=93 Condition=Condition 1 02:44 PM HR=74 bpm, QTKP=452/97 mmhg, SpO2=99.0 %, Resp=21 B/min 02:44 PM Hair removed from procedure site in holding area using clippers. Bilateral groin prepped with Chloraprep by Nely Sims (R), then patient was draped. Skin intact. tsites 02:47 PM exgorriated skin lt and right side tsites 02:48 PM HR=84 bpm, OVAR=809/96 mmhg, SpO2=99.0 % 02:51 PM Pressure channel 2 zeroed. 02:53 PM HR=75 bpm, AWWN=825/93 mmhg, SpO2=97.0 % 02:57 PM excoriated skin lt and right side tsites 02:57 PM Time: 14:41LOC: 4 = Oriented but drowsy tsites 02:58 PM Time: 14:58 Versed 2 mg Intravenous Given by Alexandro Jarrett RN tsites 02:58 PM HR=75 bpm, EZLO=159/89 mmhg, SpO2=96.0 %, Resp=18 B/min 02:59 PM Time out performed according to hospital policy tsites 03:00 PM Time: 14:59 10 ml Lidocaine 2% to right groin Subcutaneous Given by Meng Stafford DO tsites 03:01 PM Micro-Introducer Kit utilized for sheath placement tsites 03:01 PM Access obtained by percutaneous puncture. 6Fr 10cm Terumo [place] sheath placed in right Femoral artery. [id number] tsites 03:03 PM RCA angiography performed in multiple views. tsites 03:03 PM 5Fr FR 4 catheter inserted over the wire [facility] tsites 03:03 PM 0.035 145cm Navilyst 3mmJ wire [id number] tsites 03:03 PM HR=78 bpm, QFAW=368/92 mmhg, SpO2=97.0 % 03:04 PM Recorded Pressure: LV, HR=66, Condition=Condition 1 (Left Ventricle) LV 155/8/20 03:05 PM Recorded Pressure: LV, Ao, HR=78, Condition=Condition 1 (Left Ventricle) LV 159/9/17, (Aorta) Ao 153/65/104 03:05 PM Recorded Pressure: Ao, HR=77, Condition=Condition 1 (Aorta) Ao 129/72/95 03:06 PM Catheter selectively placed in left ventricle tsites 03:06 PM Bolus angiogram of left Ventricle complete: hand injection tsites 03:06 PM wire reinserted catheter removed tsites 03:07 PM 5Fr FL 4 catheter inserted over the wire DNC tsites 03:08 PM HR=83 bpm, ZZFI=589/92 mmhg, SpO2=98.0 %, Resp=22 B/min 03:09 PM Bolus angiogram of right Femoral complete: hand injection tsites 03:09 PM Recorded Pressure: Ao, HR=74, Condition=Condition 1 (Aorta) Ao 176/75/113 03:12 PM Coronary Dominance: right tsites 03:12 PM Procedure completed at 15:12 tsites 03:12 PM Did you address DONTE flow and Dominance? Yes tsites 03:12 PM Sign out completed: Radiation Dose 341 mGy Fluoro Time: 1.9 Isovue 370 - 200ml contrast 65 ml given by Meng Stafford DO. Complications: NoneCardiac Rehab Consult needed: NoConfirmed administered medications: Yes tsites 03:12 PM Isovue 370 - 200ml,1 Bottle(s) used. tsites 03:13 PM HR=78 bpm, LFVK=132/102 mmhg, SpO2=97.0 %, Resp=28 B/min 03:16 PM Arterial sheath pulled using manual compression and V+ Pad for 15 minutes by Jessica Harris RT (R) tsites 03:16 PM Estimated Blood Loss: minimal tsites 03:16 PM Cardiothoracic surgeon consulted by physician tsites 03:16 PM Post ECG NSR tsites 03:19 PM HR=78 bpm, DOHD=586/94 mmhg, SpO2=97 %, Resp=30 B/min 03:19 PM Post Blood Pressure 167/94 tsites 03:19 PM 15:19 Post Pulses Bilateral DP & PT 1+ tsites 03:20 PM Information taught Cardiac Cath and V+ Pad tsites 03:20 PM Education needs Procedure, Plan of Care, and Responsibilities of Patient in Care tsites 03:20 PM Learning barriers :None tsites 03:20 PM Education Methods Verbal tsites 03:20 PM Education evaluation Able to repeat information tsites 03:20 PM Family placed in consult room. tsites 03:21 PM Lesion found in Mid RCA. Pre Stenosis: 99 Pre DONTE Flow: tsites 03:21 PM Lesion found in Proximal LAD. Pre Stenosis: 50 Pre DONTE Flow: tsites 03:21 PM Lesion found in Mid LAD. Pre Stenosis: 90 Pre DONTE Flow: tsites 03:21 PM Lesion found in Proximal Circumflex. Pre Stenosis: 90 Pre DONTE Flow: tsites 03:22 PM Lesion found in Mid Circumflex. Pre Stenosis: 60 Pre DONTE Flow: tsites 03:22 PM Proximal Left Anterior Descending Coronary Artery with 50% stenosis. If graft is supplying this territory, 0 % stenosis. tsites 03:22 PM Mid/Distal Left Anterior Descending Coronary Artery and diagonal branches with 90% stenosis. If graft is supplying this area, 0 % stenosis tsites 03:22 PM Circumflex, Obtuse Marginal, Left Posterior Descending, and Left Posterolateral Coronary Arteries with 90 % stenosis. If graft is supplying this area, 0 % stenosis tsites 03:22 PM Right Coronary, Right Posterior Descending Arteries with Right Posterolateral and Acute Marginal branches with 99 % stenosis. If graft is supplying this area, 0 % stenosis tsites 03:24 PM HR=64 bpm, XMVH=514/95 mmhg, SpO2=97 %, Resp=19 B/min 03:27 PM Report given to odilia MONACO Pt taken to 2A Room #35. 15:27 tsites 03:27 PM Delay to floor No tsites 03:33 PM Site status No bleeding/hematoma - Rt Groin as reported by Jessica Harris RT (R) at 15:28 tsites 03:33 PM Opsite applied tsites 03:33 PM Patient out of room: 15:33 tsites Complications Complication None Hemodynamics Pressures Site Systolic/A Wave Diastolic/V Wave Mean LV 155 8 20 LV 159 9 17 AO 153 65 104 AO 129 72 95 AO 176 75 113 Post Procedure Information Blood Pressure: 167/94 mmHg Rhythm: NSR Post procedural instructions were given Surgery consult for CABG Closure Device Time Device Success/Fail 11/23/2017 3:26:00 PM Manual Compression Successful Site Checks Time Location Status Staff Sheath In? Note 03:28 PM Rt Groin No bleeding/hematoma Jessica Harris RT (R) Pulses Time Site Pre-Procedure Post-Procedure Note Bilateral DP & PT 1+ 3:19:00 PM Bilateral DP & PT 1+ Updated by Kaela Pepper, RT (R) on 11/23/2017 3:33:45 PM Kaela Pepper RT electronically signed on 11/23/2017 3:34:53 PM with status of Final
--- NOTE | 2017-11-23 15:51 | Event Note ---
Date of Encounter: 11/23/17 Time of Encounter: 15:50 - Cardiology Event Note Per discussion with Dr. Stafford, CT surgery consult pending.
--- NOTE | 2017-11-23 16:09 | Cardiothoracic Consult Note ---
Date of Encounter: 11/23/17 Time of Encounter: 16:03 Assessment and Plan (1) Acute decompensated heart failure Current Visit: Yes Status: Acute The assessment and plan as outlined above was discussed with the patient and/or family members who expressed understanding and agreement. All questions were answered. The patient has decreased ventricular function with congestive heart failure. He also has new onset atrial fibrillation. He has triple vessel disease. I discussed the options with the patient including medical therapy, PTCA with stent and open heart surgery. At this point, he favors high risk PTCA and stent placement in his circumflex and right coronary arteries and I agree that this would be the best initial approach. He needs continued treatment of his congestive heart failure. He is at high risk for any type of intervention. - History of Present Illness History of present illness: Mr. Sanchez is a 82 year old male The patient is an 82-year-old gentleman who originally presented with constipation. He also complained of shortness of breath and dyspnea. He was found to be in new onset of atrial fibrillation. Troponin was positive at 0.11. Chest x-ray revealed fluid overload, cardiomegaly and congestive heart failure. He also had lower extremity edema. Echocardiogram revealed an ejection fraction of 35-40%. No significant valvular disease. Past medical history is notable for hypertension. No history of diabetes or hypercholesterolemia. He does have the jitters for which she takes Librium every day. Cardiac catheterization revealed what looks to me to be poor ventricular function. He has a 95% right lesion with a good distal vessel. He has a 95% circumflex lesion with a good distal vessel. He has a 50% LAD lesion with a small distal vessel. Social history. He lives in [place] with his . She has lung cancer. 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 Does not smoke. Drinks 1-2 beers a night. Family history is noncontributory. Review of systems is negative for stroke or TIA. Negative for saphenous vein varicosities or strippings. Past Med Surg Social Fam HX - Past Medical History Medical history: hypertension - Past Surgical History Surgical History: non-contributory - Social History Smoking Status: Never smoker Smokeless Tobacco Status: No Alcohol use: none Drug use: none Medications and Allergies Aspirin Enteric Coated [Aspirin EC] 81 mg PO DAILY 11/21/17 [History] Cetirizine HCl [Zyrtec] 10 mg PO DAILY PRN 11/21/17 [History] Chlordiazepoxide [Librium] 5 mg PO TID PRN 11/21/17 [History] Fexofenadine HCl [Allergy Relief] 180 mg PO DAILY PRN 11/21/17 [History] Fluticasone Propionate Nasal [Flonase] 100 mcg NS DAILY PRN 11/21/17 [History] Lisinopril [Zestril] 40 mg PO BID 11/21/17 [History] Multivitamin [One Daily Multivitamin] 1 each PO DAILY 11/21/17 [History] Terazosin [Hytrin] 5 mg PO BID 11/21/17 [History] Triamcinolone Acetonide 1 appl TP BID PRN 11/21/17 [History] 3 Allergy/AdvReac Type Severity Reaction Status Date / Time Penicillins Allergy Rash Verified 11/21/17 13:18 All Systems Review: The remainder of the systems were reviewed and are negative Physical Examination Vital Signs, Last 4 Hours Pulse Resp BP Pulse Ox 11/23/17 15:48 83 16 174/94 94 11/23/17 12:19 175/80 11/23/17 12:16 175/80 Pupils are equal, round and reactive to light and accommodation. No oral lesions. Neck is supple. Trachea in the midline. No thyromegaly or carotid bruits. Lungs have scattered rales at the bases. Heart is in an irregular rate and rhythm. No murmurs, gallops or rubs. Abdomen is distended. No tenderness, rebound or guarding. Extremities with 2-3+ pitting edema bilaterally. 1+ pulses. Cranial nerves, motor and sensory intact. Results 11/23/17 03:55 11/23/17 03:55 Lab Results, Last 24 hours 11/22/17 11/23/17 11/23/17 17:27 03:55 03:55 WBC 6.3 Hgb 13.4 Hct 40.9 Plt Count 148 APTT 40.9 H Sodium 142 Potassium 3.8 Chloride 108 H Carbon Dioxide 26 BUN 24 H Creatinine 1.39 H Glucose 97 Calcium 8.9 Magnesium 11/23/17 03:55 WBC Hgb Hct Plt Count APTT Sodium Potassium Chloride Carbon Dioxide BUN Creatinine Glucose Calcium Magnesium 2.1 Consult Discharge Plan - Plan Referrals: Reilly Martin MD [Primary Care Provider] - (web request sent on 11/22/17)
[2017-11-23] MEDS ORDERED: *HR* Rivaroxaban 15 MG TABLET PO SCH (17:00)
[2017-11-23] MEDS ORDERED: *HR* Heparin 5,000 UNIT/ML VIAL IVP PRN ×2 (17:29)
[2017-11-23] MEDS ORDERED: *HR* Heparin 5,000 UNIT/ML VIAL IVP ONE (17:29)
[2017-11-23] MEDS ORDERED: Heparin 25,000 UNIT/500 ML D5W 25,000 UNIT/500 ML BAG IVC SCH (17:30)
[2017-11-23 18:42] LABS: Hematocrit 42.6 % (37.5-50.1); Hemoglobin 13.6 g/dL (12.9-16.9); INR 1.5; Mean Corpuscular HGB Conc 31.9 g/dL (31.6-35.5); Mean Corpuscular Hemoglobin 29.4 pg (28.0-33.3); Mean Corpuscular Volume 92.2 fL (83.0-100.0); Mean Platelet Volume 10.7 fL (9.4-12.4); Platelet Count 165 K/mcL (140-400); Prothrombin Time 15.8 Seconds (9.4-12.1); Red Blood Count 4.62 M/mcL (4.19-5.50); Red Cell Distribution Width 15.7 % (11.5-14.5)
[2017-11-24 00:59] LABS: Hematocrit 36.2 % (37.5-50.1); Hemoglobin 12.2 g/dL (12.9-16.9); Mean Corpuscular HGB Conc 33.7 g/dL (31.6-35.5); Mean Corpuscular Hemoglobin 30.4 pg (28.0-33.3); Mean Corpuscular Volume 90.3 fL (83.0-100.0); Mean Platelet Volume 10.3 fL (9.4-12.4); Platelet Count 153 K/mcL (140-400); Red Blood Count 4.01 M/mcL (4.19-5.50); Red Cell Distribution Width 15.6 % (11.5-14.5)
[2017-11-24 01:21] LABS: Chol/HDL Ratio 2.8 (0-4.9); Magnesium 2.1 mg/dL (1.6-2.6)
[2017-11-24 01:23] LABS: BUN/Creatinine Ratio 23 (6-26); Blood Urea Nitrogen 26 mg/dL (8-23); Calcium 8.6 mg/dL (8.6-10.3); Carbon Dioxide 24 mEq/L (23-29); Chloride 108 mEq/L (98-107); Glucose 118 mg/dL (70-105); Osmolality,Calculated 298 (280-300); Potassium 3.9 mEq/L (3.5-5.1); Sodium 141 mEq/L (136-145); eGFR For African Americans > 60 (> 60); eGFR For Non-African Americans > 60 (> 60)
--- NOTE | 2017-11-24 02:00 | Event Note ---
Date of Encounter: 11/23/17 Time of Encounter: 23:42 Called to floor by patient's nurse regarding hematoma of the lower pelvis that extended from the suprapubic area to the right groin and was raised and hard. Pt. had heart catheterization today performed by Dr. Stafford. Pts. nurse reported she had put cream on pts. abdomen at approximately 2300 and hematoma was not present. When I entered room, two nurses were applying pressure to area and one was using Doppler to find the pts. pulse in his right foot below the catheterization site. Heparin drip stopped. Pulse was found. I called Dr. Espinoza who was sponge fisherman for cardiology and explained that there was no external blood loss, the site was on the pts. abdomen and not retroperitoneal, and the area was the size of two large grapefruits and hard. Recommendation was to place pressure above the cath site at pulse point for 20-30 minutes until area softened and began to disburse and hold heparin drip until 0600. Dr. Espinoza to be called if needed. Nikki, nurses from were brought to pts. room to help apply correct pressure to hematoma for approximately 20 minutes. Hematoma softened and area began to reduce in size. Pts. BP at the time was 90's /50's. Orders to check BP Q5MIN x6, then Q10MIN. Pts. BP increased and area continued to remain soft. Pt. resting comfortably. Will continue to check site and hematoma overnight w/orders to notify Hospitalist if hematoma begins to increase.
--- NOTE | 2017-11-24 07:10 | Cardiology Progress Note ---
Date of Encounter: 11/24/17 Time of Encounter: 07:00 Assessment and Plan (1) Atrial fibrillation Current Visit: Yes Status: Acute Per Cardiology: Suspected new onset A. fib. Average heart rate on telemetry 75 for the past 12 hours, currently A. fib in the 70s. EF on echo 35-40%. Now on Toprol-XL 50 mg by mouth daily. Currently rate controlled. Regarding long-term anticoagulation, now back on IV heparin drip. [place] check for Xarelto $28/month (will not start until revascularization evaluation completed). Will DC V Hep. gtt with R groin hematoma (will discuss with Dr. Espinoza). Qualifiers: Atrial fibrillation type: unspecified Qualified Code(s): I48.91 - Unspecified atrial fibrillation (2) NSTEMI (non-ST elevated myocardial infarction) Current Visit: Yes Status: Acute Per Cardiology: Prersented initially with mild troponin elevation with peak 0.11 in setting of atrial fibrillation and CHF. Suspected demand ischemia, however EF noted to be 35-40% on echo. 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 CR c/s ordered. (3) CAD (coronary artery disease) Current Visit: Yes Status: Acute Per Cardiology: C showed: Lesion Findings/Interventions * Left Main Coronary Artery The LMCA is angiographically free of disease. * Left Anterior Descending There is a 50% stenosis in the Proximal LAD. There is a 90% stenosis in the Mid LAD. * Circumflex There is a 90% stenosis in the Proximal Circumflex. There is a 60% stenosis in the Mid Circumflex. * Right Coronary Artery There is a 99% stenosis in the Mid RCA. Additional Findings: Right Ilio-Femoral * 90% stenosis in the right iliac CT surgery following. MUGA pending this am. On aspirin, PACHECO inhibitor, beta evangelista. We will add statin. Check LFTs. Being evaluated for CABG versus high risk PCI. Kidney function stable post catheterization. Qualifiers: Coronary Disease-Associated Artery/Lesion type: [place] artery [place] vs. transplanted heart: [place] heart Associated angina: without angina Qualified Code(s): I25.10 - Atherosclerotic heart disease of [place] coronary artery without angina pectoris (4) Hematoma Current Visit: Yes Status: Acute Per Cardiology: Heparin drip resumed yesterday evening after procedure per primary service. Patient noted this morning to have moderate to large right femoral hematoma with moderate to large ecchymotic. Hematoma soft. No active bleeding. Right DP and PT pulses 1+ palpable and warm to touch. Currently appears stable. Will DC heparin drip for now. We will discuss review with Dr. Espinoza evaluate potential need for imaging. Vital signs stable, H&H stable. Will monitor daily CBC. Discussion w patient/family: The assessment and plan as outlined above was discussed with the patient who expressed understanding and agreement. All questions were answered. Thank you for involving us in the care of your patient. Please call with any questions. Subjective Principal diagnosis: Afib Interval history: Patient denies any chest pain. Reports overall shorts of breath has improved. Reports right groin soreness. Reports difficulty sleeping last night due to right groin bruising and nurses providing pressure. He denies any dizziness, palpitations, syncope, falls. Denies any active bleeding or blood loss. Reports discussed options with CT surgery. Objective Vital Signs, Last 4 Hours Pulse Resp BP Pulse Ox 11/24/17 04:32 75 18 135/79 95 11/24/17 03:43 81 145/77 95 General: Conversant, No Apparent Distress HEENT: Atraumatic, Normocephaly, Mucus Membranes Moist Neck: No JVD, Normal carotid pulses Cardiac: Reg Rate and Rhythm, Normal S1 and S2, No Murmur Lungs: Normal Breath Sounds, No Wheeze, Rales, Rhonchi Neuro: Alert and responsive, No focal deficits noted Abdomen: Soft, Non-Tender Skin: Other (Right groin access site with moderate to large hematoma, soft, no active bleeding, moderate to large ecchymosis, right lower extremity warm to touch, right PT and DP pulses 1+ palpable.) Musculoskeletal: No Chest Wall Tenderness Extremities: No Clubbing, No Cyanosis, Normal Pulses, Other (+1 pitting edema to bilateral lower extremities) Results 11/24/17 00:50 11/24/17 00:50 Lab Results Laboratory Tests 11/21/17 11/24/17 11/24/17 14:19 00:50 00:50 Hgb 14.4 12.2 L Hct 45.0 36.2 L Creatinine 1.15 Est GFR (Non-Af Amer) > 60 Cholesterol 11/24/17 00:50 Hgb Hct Creatinine Est GFR (Non-Af Amer) Cholesterol 94 Active Medications Acetylcysteine (Acetylcysteine 20%) 600 mg PO BID [facility] Stop: 11/24/17 21:01 Last Admin: 11/23/17 22:24 Dose: 600 mg Aspirin (Aspirin Ec) 81 mg PO DAILY [facility] Stop: 05/24/18 09:01 Last Admin: 11/23/17 09:28 Dose: 81 mg Chlordiazepoxide HCl (Librium) 5 mg PO TID PRN PRN Reason: Anxiety Stop: 05/23/18 17:30 Last Admin: 11/23/17 22:22 Dose: 5 mg Fluticasone Propionate (Flonase) 100 mcg NS DAILY PRN; Protocol PRN Reason: Allergy Symptoms Stop: 05/23/18 17:30 Heparin Sodium (Porcine) (Heparin) 8,100 unit 70 unit/kg (8100 unit) IVP Q6HR PRN PRN Reason: SEE COMMENTS Stop: 05/25/18 17:30 Heparin Sodium (Porcine) (Heparin) 4,100 unit 35 unit/kg (4100 unit) IVP Q6H PRN PRN Reason: SEE COMMENTS Stop: 05/25/18 17:30 Hydralazine HCl (Hydralazine) 10 mg IVP Q6HR PRN PRN Reason: Hypertension Stop: 05/25/18 11:53 Last Admin: 11/23/17 18:22 Dose: 10 mg Hydrocortisone (Cortaid) 1 appl TP BID STACIE PRN Reason: Protocol Stop: 05/25/18 21:01 Last Admin: 11/23/17 22:25 Dose: 1 appl Heparin Sodium/Dextrose (Heparin 25,000 Unit/500 Ml D5w) 25,000 unit in 500 mls @ 32.564 mls/hr IVC .[id number] STACIE; 14 UNIT/KG/HR PRN Reason: Protocol Stop: 05/25/18 17:31 Last Titration: 11/24/17 06:53 Dose: 14 unit/kg/hr, 32.564 mls/hr Lisinopril (Zestril) 40 mg PO DAILY [facility] Stop: 05/25/18 09:01 Last Admin: 11/23/17 09:28 Dose: 40 mg Loratadine (Claritin) 10 mg PO DAILY PRN PRN Reason: Allergy Symptoms Metoprolol Succinate (Toprol Xl) 50 mg PO DAILY [facility] Stop: 05/25/18 09:01 Last Admin: 03/16/18 09:28 Dose: 50 mg Multivitamins/Calcium (Thera M Plus) 1 tab PO DAILY STACIE Stop: 05/24/18 09:01 Last Admin: 11/23/17 09:28 Dose: 1 tab Naloxone HCl (Narcan) 0.4 mg IVP Q2MIN PRN PRN Reason: SEE COMMENTS Stop: 05/23/18 17:41 Ondansetron HCl (Zofran) 4 mg IVP Q8HR PRN; Protocol PRN Reason: Nausea And Vomiting Stop: 05/23/18 17:34 Senna/Docusate Sodium (Senna Plus) 2 each PO BID STACIE PRN Reason: Protocol Stop: 05/23/18 21:01 Last Admin: 11/23/17 21:53 Dose: Not Given Terazosin HCl (Hytrin) 5 mg PO BID [facility] Stop: 05/23/18 21:01 Last Admin: 11/23/17 22:22 Dose: 5 mg Triamcinolone Acetonide (Kenalog) 1 appl TP BID PRN PRN Reason: Rash - Imaging and Cardiology Cardiac cath: report reviewed - EKG Interpretation EKG results cardiology: other (Telemetry shows A. fib in the 70s) Consult Discharge Plan - Plan Referrals: Reilly Martin MD [Primary Care Provider] - 12/05/17 7:40 am ()
--- NOTE | 2017-11-24 08:26 | Cardiothoracic Progress Note ---
Date of Encounter: 11/24/17 Time of Encounter: 08:24 - Assessment and plan (1) Acute decompensated heart failure Current Visit: Yes Status: Acute The patient is due to get a MUGA scan today. We will scan the groin hematoma to look for a false aneurysm. The patient is still undecided concerning treatment of his coronary artery disease. - Subjective Interval history: No chest pain and no angina. He has developed a large hematoma in the right groin. Has been turned off. Vital Signs, Last 4 Hours Temp Pulse Resp BP Pulse Ox 11/24/17 07:37 97.7 F 89 18 168/70 97 11/24/17 04:32 75 18 135/79 95 Oxgyen Flow Rate Oxygen Flow Rate (LPM) 2 Clinical Data, last 8 Hours Output, Urine Amount 200 Weight 11/22/17 11/23/17 11/24/17 23:59 23:59 23:59 Weight 121.5 kg 116.3 kg Lungs are clear to percussion and auscultation. Heart is in an irregular rate and rhythm. He has a large right groin hematoma which extends into the thigh and lower abdominal wall. - Labs 11/24/17 00:50 11/24/17 00:50 Lab Results, Last 24 hours 11/23/17 11/23/17 11/23/17 17:51 17:51 17:51 WBC 7.0 Hgb 13.6 Hct 42.6 Plt Count 165 INR 1.5 APTT 31.8 Sodium Potassium Chloride Carbon Dioxide BUN Creatinine Glucose Calcium Magnesium 11/24/17 11/24/17 11/24/17 00:50 00:50 00:50 WBC 8.9 Hgb 12.2 L Hct 36.2 L Plt Count 153 INR APTT Sodium 141 Potassium 3.9 Chloride 108 H Carbon Dioxide 24 BUN 26 H Creatinine 1.15 Glucose 118 H Calcium 8.6 Magnesium 2.1 11/24/17 00:50 WBC Hgb Hct Plt Count INR APTT 92.3 H D Sodium Potassium Chloride Carbon Dioxide BUN Creatinine Glucose Calcium Magnesium Consult Discharge Plan - Plan Referrals: Reilly Martin MD [Primary Care Provider] - 12/05/17 7:40 am ()
[2017-11-24] MEDS ORDERED: *HR* Heparin 5,000 UNIT/ML VIAL IVP PRN ×2 (10:08)
--- NOTE | 2017-11-24 10:12 | Event Note ---
Date of Encounter: 11/24/17 Time of Encounter: 10:10 - Cardiology Event Note Discussed and reviewed with Dr. Espinoza, MUGA scan pending. With A. fib and high stroke risk we will resume heparin drip with no bolus. Discussed with Dr. Espinoza regarding potential for right groin imaging, recs to continue to monitor.
[2017-11-24] MEDS ORDERED: Heparin 25,000 UNIT/500 ML D5W 25,000 UNIT/500 ML BAG IVC SCH (10:15)
[2017-11-24] MEDS: Multivit/Ca/Min/Fe/FA 1 TAB TABLET PO SCH (11:07)
[2017-11-24] MEDS: Lisinopril 20 MG TABLET PO SCH (11:07)
[2017-11-24] MEDS: Sennosides/Docusate Sodium TABLET PO SCH ×2 (11:07→21:30)
[2017-11-24] MEDS: Aspirin Enteric Coated 81 MG Tablet PO SCH (11:07)
[2017-11-24] MEDS: Metoprolol XL (24 HR) Succ 50 MG TAB.ER.24H PO SCH (11:07)
[2017-11-24] MEDS: *HR* Acetylcysteine 20% 600 MG/3 ML ORAL SYRINGE PO SCH ×2 (11:08→21:30)
[2017-11-24 11:19] LABS: Hematocrit 36.3 % (37.5-50.1); Hemoglobin 11.6 g/dL (12.9-16.9); Mean Corpuscular Hemoglobin 29.7 pg (28.0-33.3); Mean Corpuscular Volume 93.1 fL (83.0-100.0); Mean Platelet Volume 10.2 fL (9.4-12.4); Platelet Count 158 K/mcL (140-400); Red Cell Distribution Width 15.6 % (11.5-14.5)
[2017-11-24 11:24] LABS: INR 1.4; Prothrombin Time 15.4 Seconds (9.4-12.1)
[2017-11-24 11:27] LABS: Activated Partial Thrombo Time 72.2 Seconds (26.0-36.0)
--- NOTE | 2017-11-24 15:58 | Internal Med Progress Note ---
Date of Encounter: 11/24/17 Time of Encounter: 15:55 - Assessment and plan (1) CAD (coronary artery disease) Current Visit: Yes Status: Acute Assessment and plan: LHC showed severe triple disease 90% stenosis in mid LAD, 90 % stenosis in Proximal Circumflex, 99% stenosis in Mid RCA Cont ASA, Metoprolol Talked to CTS, Dr. Alba concerned about severe systolic dysfunction, ordered MUGA scan which confirmed LVEF 44% Pt is still have not decide about further treatment options CABG vs Stent with aggressive medical management talked to the family at bed side and explained to them about current care Qualifiers: Coronary Disease-Associated Artery/Lesion type: [place] artery [place] vs. transplanted heart: [place] heart Associated angina: without angina Qualified Code(s): I25.10 - Atherosclerotic heart disease of [place] coronary artery without angina pectoris (2) Hematoma Current Visit: Yes Status: Acute Assessment and plan: Cont pressure dressing d/c Heparin Arterial U/S ordered cont close monitoring H/H Q 6hr (3) Acute systolic (congestive) heart failure Current Visit: Yes Status: Acute Assessment and plan: 2 D Ehco showed LVEF 35-40%, Moderate global LV systolic dysfunction LHC showed severe triple disease 90% stenosis in mid LAD, 90 % stenosis in Proximal Circumflex, 99% stenosis in Mid RCA Cont ASA, Metoprolol Since he does have CKD- held Lasix and started him on Acetylcysteine cont holding Lasix (4) NSTEMI (non-ST elevated myocardial infarction) Current Visit: Yes Status: Acute Assessment and plan: s/p LHC Held heparin due to Rt groin hematoma (5) HLD (hyperlipidemia) Current Visit: Yes Status: Acute Assessment and plan: Reviewed FLP LDL -47 HDL 33 Qualifiers: Qualified Code(s): E78.5 - Hyperlipidemia, unspecified (6) Atrial fibrillation Current Visit: Yes Status: Acute Assessment and plan: rate controlled with Metoprolol Held anti coag due to large hematoma in Rt groin Qualifiers: Atrial fibrillation type: unspecified Qualified Code(s): I48.91 - Unspecified atrial fibrillation (7) Hypertension Current Visit: Yes Status: Acute Assessment and plan: stable with current meds Qualifiers: Hypertension type: essential hypertension Qualified Code(s): I10 - Essential (primary) hypertension (8) CKD (chronic kidney disease) stage 2, GFR 60-89 ml/min Current Visit: Yes Status: Acute Assessment and plan: stable and improved Cr cont close monitoring - Subjective Interval history: 82-year-old male with history of hypertension presented to the emergency department with complaint of shortness of breath as well as constipation. The patient went to an urgent care for constipation was found to be in A. fib. and so brought to [facility]. Has complaints of orthopnea, lower extremity swelling and dyspnea. He denies chest pain, n/v, palpitations, diaphoresis. Chest x-ray in ED showed pulmonary edema and pleural effusions. Pt was admitted here and started him on IV Lasix. His Trop were slightly elevated. His Echo showed systolic CHF LVEF @ 40%. He did go for LHC y/d which showed severe 3 vessel disease. CTS consulted for further eval Pt states he is feeling better now. Denied any CP/ SOB. We resumed his heparin last night due to his recent NSTEMI and LHC showed severe 3 vessel disease too, apparently last night he developed a huge hematoma over Rt groin area. - Constitutional Vitals: Temp Pulse Resp BP Pulse Ox 97.7 F 72 14 122/65 95 11/24/17 15:17 11/24/17 15:17 11/24/17 15:17 11/24/17 15:17 11/24/17 15:17 General appearance: Present: A&O X 3, no acute distress, answers questions appropriately - Head Head exam: Present: atraumatic, normal inspection - Neck Neck exam general surgery: Present: supple - Respiratory Respiratory exam: Present: decreased breath sounds, wheezes (mild). Absent: rales, respiratory distress, rhonchi - Cardiovascular Cardiovascular exam: Present: irregular rhythm, +S1, +S2. Absent: tachycardia - GI/Abdominal GI/Abdominal exam: Present: normal bowel sounds, soft. Absent: rebound, rigid, tenderness - Extremities Exam Extremities exam: Absent: calf tenderness, pedal edema, tenderness Additional comments: Large hematoma noticed in Rt groin region.. Non pulsate. Ecchymosis spreading to scrotal sac and posterior thigh region too - Back Exam Back exam: Absent: CVA tenderness (L), CVA tenderness (R) - Neurological Exam Neurological exam: Present: alert, oriented X3 - Psychiatric Psychiatric exam: Present: normal affect, normal mood Internal Medicine: Result - Labs CBC & Chem 7: 11/24/17 11:11 11/24/17 00:50 Labs: Short CBC 11/23/17 11/24/17 11/24/17 Range/Units 17:51 00:50 11:11 WBC 7.0 8.9 8.6 (4.3-11.1) K/mcL Hgb 13.6 12.2 L 11.6 L (12.9-16.9) g/dL Hct 42.6 36.2 L 36.3 L (37.5-50.1) % Plt Count 165 153 158 (140-400) K/mcL BMP 11/24/17 00:50 Sodium 141 Potassium 3.9 Chloride 108 H Carbon Dioxide 24 BUN 26 H Creatinine 1.15 Glucose 118 H Calcium 8.6 - ABG Interpretation ABG results: PT/INR, D-dimer PT 15.4 Seconds (9.4-12.1) H 11/24/17 11:11 Consult Discharge Plan - Plan Referrals: Reilly Martin MD [Primary Care Provider] - 12/05/17 7:40 am ()
[2017-11-24 16:15] LABS: Basophils % 0.3 %; Eosinophils % 0.2 %; Hemoglobin 10.4 g/dL (12.9-16.9); Immature Granulocytes % 0.2 % (0-4); Lymphocytes # 0.9 K/mcL (0.6-4.6); Lymphocytes % 10.4 %; Mean Corpuscular HGB Conc 32.5 g/dL (31.6-35.5); Mean Corpuscular Hemoglobin 29.9 pg (28.0-33.3); Mean Platelet Volume 10.7 fL (9.4-12.4); Monocytes # 0.8 K/mcL (0.0-1.3); Monocytes % 9.3 %; Neutrophils # 7.1 K/mcL (1.6-8.9); Platelet Count 151 K/mcL (140-400); Red Blood Count 3.48 M/mcL (4.19-5.50); Red Cell Distribution Width 15.8 % (11.5-14.5); Segmented Neutrophils % 79.6 %
[2017-11-24] MEDS ORDERED: *HR* OxyCODONE/APAP 5/325 TABLET PO PRN (16:50)
[2017-11-24] MEDS ORDERED: traMADol 50 MG TABLET PO PRN (16:50)
[2017-11-24 23:05] LABS: Hematocrit 29.8 % (37.5-50.1); Hemoglobin 9.7 g/dL (12.9-16.9)
[2017-11-25 05:57] LABS: Hematocrit 28.9 % (37.5-50.1); Hemoglobin 9.4 g/dL (12.9-16.9); Mean Corpuscular HGB Conc 32.5 g/dL (31.6-35.5); Mean Corpuscular Hemoglobin 30.1 pg (28.0-33.3); Mean Corpuscular Volume 92.6 fL (83.0-100.0); Mean Platelet Volume 10.9 fL (9.4-12.4); Platelet Count 137 K/mcL (140-400); Red Blood Count 3.12 M/mcL (4.19-5.50); Red Cell Distribution Width 15.6 % (11.5-14.5)
[2017-11-25 06:16] LABS: Alanine Aminotransferase 13 Units/L (7-52); Aspartate Amino Transferase 13 Units/L (13-39); BUN/Creatinine Ratio 25 (6-26); Blood Urea Nitrogen 31 mg/dL (8-23); Calcium 8.4 mg/dL (8.6-10.3); Carbon Dioxide 27 mEq/L (23-29); Chloride 109 mEq/L (98-107); Glucose 111 mg/dL (70-105); Osmolality,Calculated 299 (280-300); Potassium 3.6 mEq/L (3.5-5.1); Sodium 141 mEq/L (136-145); eGFR For African Americans > 60 (> 60); eGFR For Non-African Americans 56 (> 60)
--- NOTE | 2017-11-25 06:29 | Event Note ---
Date of Encounter: 11/24/17 Time of Encounter: 15:00 (late entry for yesterday) - Cardiology Event Note Late Entry: R groin hematome stable upon repeat eval this afternoon. HR and BP stable, CBC pending this evening. RN noted slight ooozing from R groin site, agree with DC of IV Hep. gtt per primary. Will obtain R LE imaging to assess for pseudoaneurysm.
--- NOTE | 2017-11-25 06:33 | Cardiology Progress Note ---
Date of Encounter: 11/25/17 Time of Encounter: 06:30 Assessment and Plan (1) Atrial fibrillation Current Visit: Yes Status: Acute Per Cardiology: Suspected new onset A. fib. Average heart rate on telemetry 73 for the past 12 hours, currently A. fib in the 70s, longest pause 3.4 seconds. EF on echo 35-40% . On Toprol-XL 50 mg by mouth daily. Currently rate controlled. Recommend outpatient evaluation for BILL. Regarding long-term anticoagulation, IV hep. gtt now off again with R groin hematoma. Patient and family aware of increased risk of CVA off AC. Will re- evaluate retirement AC during hosp curse ([facility] check of $28/month). Qualifiers: Atrial fibrillation type: unspecified Qualified Code(s): I48.91 - Unspecified atrial fibrillation (2) NSTEMI (non-ST elevated myocardial infarction) Current Visit: Yes Status: Acute Per Cardiology: Presented initially with mild troponin elevation with peak 0.11 in setting of atrial fibrillation and CHF. Suspected demand ischemia, however EF noted to be 35-40% on echo. Cath now shows severe 3 vessel CAD. CP free. (3) CAD (coronary artery disease) Current Visit: Yes Status: Acute Per Cardiology: LHC showed: Lesion Findings/Interventions * Left Main Coronary Artery The LMCA is angiographically free of disease. * Left Anterior Descending There is a 50% stenosis in the Proximal LAD. There is a 90% stenosis in the Mid LAD. * Circumflex There is a 90% stenosis in the Proximal Circumflex. There is a 60% stenosis in the Mid Circumflex. * Right Coronary Artery There is a 99% stenosis in the Mid RCA. Additional Findings: Right Ilio-Femoral * 90% stenosis in the right iliac CT surgery following. On aspirin, PACHECO inhibitor, beta evangelista, statin. LFTs stable. Being evaluated for CABG versus high risk PCI. Kidney function stable post catheterization. I had lengthy discussion with family today providing updates. All questions answered. Qualifiers: Coronary Disease-Associated Artery/Lesion type: [place] artery [place] vs. transplanted heart: [place] heart Associated angina: without angina Qualified Code(s): I25.10 - Atherosclerotic heart disease of [place] coronary artery without angina pectoris (4) Cardiomyopathy Current Visit: Yes Status: Acute Per Cardiology: MUGA resulted, EF 44.3%. Qualifiers: Cardiomyopathy type: ischemic Qualified Code(s): I25.5 - Ischemic cardiomyopathy (5) Hematoma Current Visit: Yes Status: Acute Per Cardiology: H/H down from 14.4 to 9.4. BP and HR remain stable. Prelim vascular report shows negative for pseudoaneurysm. Heparin drip off. Not on anticoagulation. Continue aspirin only for now. Discussion w patient/family: The assessment and plan as outlined above was discussed with the patient and family who expressed understanding and agreement. All questions were answered. Thank you for involving us in the care of your patient. Please call with any questions. Subjective Principal diagnosis: Afib Interval history: Patient denies any new concerns this morning. He denies any chest pain, shortness of breath, palpitations. Reports mild right groin tenderness. Objective Vital Signs, Last 4 Hours Temp Pulse Resp BP Pulse Ox 11/25/17 04:35 98.2 F 85 18 136/63 97 11/25/17 04:25 84 General: Conversant, No Apparent Distress HEENT: Atraumatic, Normocephaly Cardiac: No Murmur, Other (Irregularly irregular) Lungs: Normal Breath Sounds, No Wheeze, Rales, Rhonchi Neuro: Alert and responsive, No focal deficits noted Abdomen: Soft, Non-Tender Skin: Other (Right groin site with large hematoma, soft to touch, dressing dry and intact, no bleeding, large amount of ecchymosis, no bruit noted, right extremity warm to touch, right DP and PT pulses 1+ palpable) Results 11/25/17 05:05 11/25/17 05:05 Lab Results Laboratory Tests 11/21/17 11/21/17 11/25/17 14:19 22:40 05:05 Hgb 14.4 9.4 L Hct 45.0 28.9 L Creatinine Est GFR (Non-Af Amer) AST ALT Troponin I 0.11 H* 11/25/17 05:05 Hgb Hct Creatinine 1.23 Est GFR (Non-Af Amer) 56 L AST 13 ALT 13 Troponin I Active Medications Aspirin (Aspirin Ec) 81 mg PO DAILY STACIE Stop: 05/24/18 09:01 Last Admin: 11/24/17 11:07 Dose: 81 mg Atorvastatin Calcium (Lipitor) 80 mg PO HS STACIE Stop: 05/26/18 21:01 Last Admin: 11/24/17 21:30 Dose: 80 mg Chlordiazepoxide HCl (Librium) 5 mg PO TID PRN PRN Reason: Anxiety Stop: 05/23/18 17:30 Last Admin: 11/24/17 23:02 Dose: 5 mg Fluticasone Propionate (Flonase) 100 mcg NS DAILY PRN; Protocol PRN Reason: Allergy Symptoms Stop: 05/23/18 17:30 Hydralazine HCl (Hydralazine) 10 mg IVP Q6HR PRN PRN Reason: Hypertension Stop: 05/25/18 11:53 Last Admin: 11/23/17 18:22 Dose: 10 mg Hydrocortisone (Cortaid) 1 appl TP BID [facility] PRN Reason: Protocol Stop: 05/25/18 21:01 Last Admin: 11/24/17 21:30 Dose: 1 appl Lisinopril (Zestril) 40 mg PO DAILY [facility] Stop: 05/25/18 09:01 Last Admin: 11/24/17 11:07 Dose: 40 mg Loratadine (Claritin) 10 mg PO DAILY PRN PRN Reason: Allergy Symptoms Metoprolol Succinate (Toprol Xl) 50 mg PO DAILY [facility] Stop: 05/25/18 09:01 Last Admin: 11/24/17 11:07 Dose: 50 mg Multivitamins/Calcium (Thera M Plus) 1 tab PO DAILY [facility] Stop: 05/24/18 09:01 Last Admin: 11/24/17 11:07 Dose: 1 tab Naloxone HCl (Narcan) 0.4 mg IVP Q2MIN PRN PRN Reason: SEE COMMENTS Stop: 05/23/18 17:41 Ondansetron HCl (Zofran) 4 mg IVP Q8HR PRN; Protocol PRN Reason: Nausea And Vomiting Stop: 05/23/18 17:34 Oxycodone/Acetaminophen (Percocet 5/325) 1 each PO Q6HR PRN PRN Reason: Severe Pain Stop: 05/26/18 16:51 Senna/Docusate Sodium (Senna Plus) 2 each PO BID STACIE PRN Reason: Protocol Stop: 05/23/18 21:01 Last Admin: 11/24/17 21:30 Dose: 2 each Terazosin HCl (Hytrin) 5 mg PO BID [facility] Stop: 05/23/18 21:01 Last Admin: 11/24/17 21:30 Dose: 5 mg Tramadol HCl (Ultram) 50 mg PO Q6HR PRN PRN Reason: Moderate Pain Stop: 05/26/18 16:51 Triamcinolone Acetonide (Kenalog) 1 appl TP BID PRN PRN Reason: Rash - EKG Interpretation EKG results cardiology: other (Currently A. fib in the 70s, telemetry reviewed with average heart rate the past 12 hours 73, longest pause noted 3.4 seconds, no significant events appreciated) - VTE Documentation of Mechanical Device: Intermittent pneumatic compression device Consult Discharge Plan - Plan Referrals: Reilly Martin MD [Primary Care Provider] - 12/05/17 7:40 am ()
[2017-11-25] MEDS: Aspirin Enteric Coated 81 MG Tablet PO SCH (08:09)
[2017-11-25] MEDS: Metoprolol XL (24 HR) Succ 50 MG TAB.ER.24H PO SCH (08:10)
[2017-11-25] MEDS: Multivit/Ca/Min/Fe/FA 1 TAB TABLET PO SCH (08:10)
[2017-11-25] MEDS: Sennosides/Docusate Sodium TABLET PO SCH ×2 (08:10→20:33)
[2017-11-25] MEDS: Lisinopril 20 MG TABLET PO SCH (08:10)
--- NOTE | 2017-11-25 09:36 | Cardiothoracic Progress Note ---
Date of Encounter: 11/25/17 Time of Encounter: 09:32 - Assessment and plan (1) Acute decompensated heart failure Current Visit: Yes Status: Acute MUGA scan revealed an ejection fraction of 44%. He is a candidate for coronary artery bypass grafting, modified Maze procedure and left atrial appendage stapling. It would be best if his right groin hematoma was given some time to resolve prior to surgery. It would also be good to continue to treat his congestive heart failure. There is a good chance that he will convert to sinus rhythm in the operating room. Therefore, it would be best to have him on blood thinner for at least 1 week prior to surgery. The procedure, its risks, benefits and alternatives were explained to the patient and his family and they will consider. If he decides against surgery, I would recommend angioplasty and stent placement in his right coronary artery and circumflex coronary artery. - Subjective Interval history: The patient has had no angina and no chest pain. Vital Signs, Last 4 Hours Temp Pulse Resp BP Pulse Ox 11/25/17 06:45 98.9 F 76 20 136/69 96 Oxgyen Flow Rate Oxygen Flow Rate (LPM) 2 Clinical Data, last 8 Hours Output, Urine Amount 150 Weight 11/23/17 11/24/17 11/25/17 23:59 23:59 23:59 Weight 116.3 kg 115.8 kg Lungs are clear to percussion and auscultation. Heart is in an irregular rate and rhythm. His right groin hematoma appears stable. His hematocrit has dropped 5. - Labs 11/25/17 05:05 11/25/17 05:05 Lab Results, Last 24 hours 11/24/17 11/24/17 11/24/17 11:11 11:11 15:55 WBC 8.6 8.9 Hgb 11.6 L 10.4 L Hct 36.3 L 32.0 L Plt Count 158 151 INR 1.4 APTT 72.2 H Sodium Potassium Chloride Carbon Dioxide BUN Creatinine Glucose Calcium AST ALT 11/24/17 11/25/17 11/25/17 22:57 05:05 05:05 WBC 8.4 Hgb 9.7 L 9.4 L Hct 29.8 L 28.9 L Plt Count 137 L INR APTT Sodium 141 Potassium 3.6 Chloride 109 H Carbon Dioxide 27 BUN 31 H Creatinine 1.23 Glucose 111 H Calcium 8.4 L AST 13 ALT 13 - VTE Documentation of Mechanical Device: Intermittent pneumatic compression device Consult Discharge Plan - Plan Referrals: Reilly Martin MD [Primary Care Provider] - 12/05/17 7:40 am ()
--- NOTE | 2017-11-25 09:49 | Electrocardiograph Report ---
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
--- NOTE | 2017-11-25 10:07 | Event Note ---
Date of Encounter: 11/25/17 Time of Encounter: 10:00 - Cardiology Event Note Plan discussed with CT surgery and family. Evaluating possible CABG. Will add low dose lasix for gentle diuresis, monitor kidney fxn closely.
[2017-11-25] MEDS: Furosemide 20 MG TABLET PO SCH ×2 (10:37→15:36)
[2017-11-25 13:02] LABS: Hematocrit 31.2 % (37.5-50.1); Hemoglobin 9.9 g/dL (12.9-16.9)
--- NOTE | 2017-11-25 16:53 | Internal Med Progress Note ---
Date of Encounter: 11/25/17 Time of Encounter: 08:30 - Assessment and plan (1) CAD (coronary artery disease) Current Visit: Yes Status: Acute Assessment and plan: LHC showed severe triple vessel disease 90% stenosis in mid LAD, 90 % stenosis in Proximal Circumflex, 99% stenosis in Mid RCA Cont ASA, Metoprolol MUGA scan confirmed LVEF 44% Seems appropriate for CABG CTS already talked to the pt and family Appreciate CTS and Cardiology recommendations Pt is still have not decide about further treatment options CABG vs Stent with aggressive medical management talked to the family at bed side and explained to them about current care Qualifiers: Coronary Disease-Associated Artery/Lesion type: [place] artery [place] vs. transplanted heart: [place] heart Associated angina: without angina Qualified Code(s): I25.10 - Atherosclerotic heart disease of [place] coronary artery without angina pectoris (2) Hematoma Current Visit: Yes Status: Acute Assessment and plan: Cont pressure dressing d/c Heparin Arterial U/S - did not show any pseudo aneurysm Hb dropped down to 9.4 stable now cont close monitoring H/H No need of PRBC transfusion now If Cardiology clears will start him on anti coag.. Probably Lovenox daily doses might be ideal if CTS want him on anticoag for at least a week prior to CABG. Will coordinate the care with Card and CTS (3) Acute systolic (congestive) heart failure Current Visit: Yes Status: Acute Assessment and plan: 2 D Ehco showed LVEF 35-40%, Moderate global LV systolic dysfunction LHC showed severe triple disease 90% stenosis in mid LAD, 90 % stenosis in Proximal Circumflex, 99% stenosis in Mid RCA Cont ASA, Metoprolol Resumed PO Lasix today (4) NSTEMI (non-ST elevated myocardial infarction) Current Visit: Yes Status: Acute Assessment and plan: s/p LHC Held heparin due to Rt groin hematoma (5) HLD (hyperlipidemia) Current Visit: Yes Status: Acute Assessment and plan: Reviewed FLP LDL -47 HDL 33 Qualifiers: Qualified Code(s): E78.5 - Hyperlipidemia, unspecified (6) Atrial fibrillation Current Visit: Yes Status: Acute Assessment and plan: rate controlled with Metoprolol Held anti coag due to large hematoma in Rt groin Qualifiers: Atrial fibrillation type: unspecified Qualified Code(s): I48.91 - Unspecified atrial fibrillation (7) Hypertension Current Visit: Yes Status: Acute Assessment and plan: stable with current meds Qualifiers: Hypertension type: essential hypertension Qualified Code(s): I10 - Essential (primary) hypertension (8) CKD (chronic kidney disease) stage 2, GFR 60-89 ml/min Current Visit: Yes Status: Acute Assessment and plan: stable and improved Cr cont close monitoring - Subjective Interval history: 82-year-old male with history of hypertension presented to the emergency department with complaint of shortness of breath as well as constipation. The patient went to an urgent care for constipation was found to be in A. fib. and so brought to [facility]. Has complaints of orthopnea, lower extremity swelling and dyspnea. He denies chest pain, n/v, palpitations, diaphoresis. Chest x-ray in ED showed pulmonary edema and pleural effusions. Pt was admitted here and started him on IV Lasix. His Trop were slightly elevated. His Echo showed systolic CHF LVEF @ 40%. He did go for C y/d which showed severe 3 vessel disease. CTS consulted for further eval Pt states he is feeling better now. Denied any CP/ SOB. His groin hematoma also stable. Denied any pain any where. - Constitutional Vitals: Temp Pulse Resp BP Pulse Ox 97.8 F 66 22 120/59 97 11/25/17 16:13 11/25/17 16:13 11/25/17 16:13 11/25/17 16:13 11/25/17 16:13 General appearance: Present: A&O X 3, no acute distress, answers questions appropriately - Head Head exam: Present: atraumatic, normal inspection - Neck Neck exam general surgery: Present: supple - Respiratory Respiratory exam: Present: decreased breath sounds. Absent: rales, respiratory distress, rhonchi, wheezes - Cardiovascular Cardiovascular exam: Present: +S1, +S2. Absent: tachycardia - GI/Abdominal GI/Abdominal exam: Present: normal bowel sounds, soft. Absent: rebound, rigid, tenderness - Extremities Exam Extremities exam: Present: pedal edema. Absent: calf tenderness, tenderness Additional comments: Stable hematoma.. Ecchymosis on Rt groin.. No active bleeding noticed - Back Exam Back exam: Absent: CVA tenderness (L), CVA tenderness (R) - Neurological Exam Neurological exam: Present: alert, oriented X3 Internal Medicine: Result - Labs CBC & Chem 7: 11/25/17 12:09 11/25/17 05:05 Labs: Short CBC 11/24/17 11/25/17 11/25/17 Range/Units 22:57 05:05 12:09 WBC 8.4 (4.3-11.1) K/mcL Hgb 9.7 L 9.4 L 9.9 L (12.9-16.9) g/dL Hct 29.8 L 28.9 L 31.2 L (37.5-50.1) % Plt Count 137 L (140-400) K/mcL BMP 11/25/17 05:05 Sodium 141 Potassium 3.6 Chloride 109 H Carbon Dioxide 27 BUN 31 H Creatinine 1.23 Glucose 111 H Calcium 8.4 L Liver Function 11/25/17 Range/Units 05:05 AST 13 (13-39) Units/L ALT 13 (7-52) Units/L - ABG Interpretation ABG results: PT/INR, D-dimer PT 15.4 Seconds (9.4-12.1) H 11/24/17 11:11 - VTE Documentation of Mechanical Device: Intermittent pneumatic compression device Consult Discharge Plan - Plan Referrals: Reilly Martin MD [Primary Care Provider] - 12/05/17 7:40 am ()
[2017-11-26 04:14] LABS: Hematocrit 27.3 % (37.5-50.1); Hemoglobin 8.8 g/dL (12.9-16.9); Mean Corpuscular HGB Conc 32.2 g/dL (31.6-35.5); Mean Corpuscular Hemoglobin 30.2 pg (28.0-33.3); Mean Corpuscular Volume 93.8 fL (83.0-100.0); Platelet Count 119 K/mcL (140-400); Red Blood Count 2.91 M/mcL (4.19-5.50); Red Cell Distribution Width 15.3 % (11.5-14.5)
[2017-11-26 04:39] LABS: BUN/Creatinine Ratio 28 (6-26); Blood Urea Nitrogen 35 mg/dL (8-23); Calcium 8.1 mg/dL (8.6-10.3); Carbon Dioxide 26 mEq/L (23-29); Chloride 107 mEq/L (98-107); Glucose 105 mg/dL (70-105); Osmolality,Calculated 304 (280-300); Potassium 3.7 mEq/L (3.5-5.1); Sodium 143 mEq/L (136-145); eGFR For African Americans > 60 (> 60); eGFR For Non-African Americans 55 (> 60)
[2017-11-26] MEDS: Lisinopril 20 MG TABLET PO SCH (08:12)
[2017-11-26] MEDS: Aspirin Enteric Coated 81 MG Tablet PO SCH (08:12)
[2017-11-26] MEDS: Sennosides/Docusate Sodium TABLET PO SCH ×2 (08:13→21:10)
[2017-11-26] MEDS: Multivit/Ca/Min/Fe/FA 1 TAB TABLET PO SCH (08:13)
[2017-11-26] MEDS: Furosemide 20 MG TABLET PO SCH ×2 (08:13→17:00)
[2017-11-26] MEDS: Metoprolol XL (24 HR) Succ 50 MG TAB.ER.24H PO SCH (08:13)
--- NOTE | 2017-11-26 08:35 | Cardiology Progress Note ---
Date of Encounter: 11/26/17 Time of Encounter: 08:30 Assessment and Plan (1) Atrial fibrillation Current Visit: Yes Status: Acute Per Cardiology: Suspected new onset A. fib. Average heart rate on telemetry 78 for the past 12 hours, currently A. fib in the 80s, longest pause 2.0 seconds. EF on echo 35-40% . On Toprol-XL 50 mg by mouth daily. Currently rate controlled. Recommend outpatient evaluation for BILL. Regarding long-term anticoagulation, IV hep. gtt now off again with R groin hematoma. Patient and family aware of increased risk of CVA off AC. Will re- evaluate intermediate AC during hosp curse ([employer] ellis check of $28/month). Qualifiers: Atrial fibrillation type: unspecified Qualified Code(s): I48.91 - Unspecified atrial fibrillation (2) NSTEMI (non-ST elevated myocardial infarction) Current Visit: Yes Status: Acute Per Cardiology: Presented initially with mild troponin elevation with peak 0.11 in setting of atrial fibrillation and CHF. Suspected demand ischemia, however EF noted to be 35-40% on echo. Cath now shows severe 3 vessel CAD. CP free. (3) CAD (coronary artery disease) Current Visit: Yes Status: Acute Per Cardiology: LHC showed: Lesion Findings/Interventions * Left Main Coronary Artery The LMCA is angiographically free of disease. * Left Anterior Descending There is a 50% stenosis in the Proximal LAD. There is a 90% stenosis in the Mid LAD. * Circumflex There is a 90% stenosis in the Proximal Circumflex. There is a 60% stenosis in the Mid Circumflex. * Right Coronary Artery There is a 99% stenosis in the Mid RCA. Additional Findings: Right Ilio-Femoral * 90% stenosis in the right iliac CT surgery following. On aspirin, PACHECO inhibitor, beta evangelista, statin. LFTs stable. Being evaluated for CABG versus high risk PCI. Kidney function stable post catheterization. All questions answered. Qualifiers: Coronary Disease-Associated Artery/Lesion type: [place] artery [place] vs. transplanted heart: [place] heart Associated angina: without angina Qualified Code(s): I25.10 - Atherosclerotic heart disease of [place] coronary artery without angina pectoris (4) Cardiomyopathy Current Visit: Yes Status: Acute Per Cardiology: MUGA resulted, EF 44.3%. On Lasix 20mg PO BID, creat stable. Net I&O +2529ml. Qualifiers: Cardiomyopathy type: ischemic Qualified Code(s): I25.5 - Ischemic cardiomyopathy (5) Hematoma Current Visit: Yes Status: Acute Per Cardiology: H/H down from 14.4 to 8.8. BP and HR remain stable. Vascular report shows negative for pseudoaneurysm. Heparin drip off. Not on anticoagulation. Continue aspirin only for now. Discussion w patient/family: The assessment and plan as outlined above was discussed with the patient and family who expressed understanding and agreement. All questions were answered. Thank you for involving us in the care of your patient. Please call with any questions. Subjective Principal diagnosis: Afib Interval history: Patient denies any new concerns this morning. He denies any chest pain, shortness of breath, palpitations. Reports mild right groin tenderness. Objective Vital Signs, Last 4 Hours Temp Pulse Resp BP Pulse Ox 11/26/17 08:05 66 11/26/17 07:04 97.6 F 76 18 114/70 96 General: Conversant, No Apparent Distress HEENT: Atraumatic, Normocephaly Cardiac: No Murmur, Other (Irregularly irregular) Lungs: Normal Breath Sounds, No Wheeze, Rales, Rhonchi Neuro: Alert and responsive, No focal deficits noted Skin: No rashes noted on visualized skin, Other (Right groin site with large hematoma that appears improving, large ecchymosis noted, no bleeding, no drainage, right lower extremity warm to touch, right DP and PT pulses 1+ palpable) Extremities: Other (+1 nonpitting bilateral lower extremity) Results 11/26/17 03:02 11/26/17 03:02 Lab Results Laboratory Tests 11/21/17 11/22/17 11/26/17 14:19 02:32 03:02 Hgb 14.4 8.8 L Hct 45.0 27.3 L Plt Count 182 119 L Creatinine Est GFR (Non-Af Amer) 11/26/17 03:02 Hgb Hct Plt Count Creatinine 1.26 Est GFR (Non-Af Amer) 55 L Intake & Output 11/23/17 11/24/17 11/25/17 11/26/17 23:59 23:59 23:59 23:59 Intake Total 620 / 620 1064 / 1064 480 / 480 950 / 950 Output Total 325 / 325 500 / 500 600 / 600 225 / 225 Balance 295 / 295 564 / 564 -120 / -120 725 / 725 Weight 116.3 kg 115.8 kg 117.1 kg Active Medications Aspirin (Aspirin Ec) 81 mg PO DAILY [facility] Stop: 05/24/18 09:01 Last Admin: 11/26/17 08:12 Dose: 81 mg Atorvastatin Calcium (Lipitor) 80 mg PO HS [facility] Stop: 05/26/18 21:01 Last Admin: 11/25/17 20:32 Dose: 80 mg Chlordiazepoxide HCl (Librium) 5 mg PO TID PRN PRN Reason: Anxiety Stop: 05/23/18 17:30 Last Admin: 11/26/17 08:19 Dose: 5 mg Fluticasone Propionate (Flonase) 100 mcg NS DAILY PRN; Protocol PRN Reason: Allergy Symptoms Stop: 05/23/18 17:30 Furosemide (Lasix) 20 mg PO BIDDIURETIC STACIE Stop: 05/27/18 10:16 Last Admin: 11/26/17 08:13 Dose: 20 mg Hydralazine HCl (Hydralazine) 10 mg IVP Q6HR PRN PRN Reason: Hypertension Stop: 05/25/18 11:53 Last Admin: 11/23/17 18:22 Dose: 10 mg Hydrocortisone (Cortaid) 1 appl TP BID STACIE PRN Reason: Protocol Stop: 05/25/18 21:01 Last Admin: 11/25/17 20:33 Dose: 1 appl Lisinopril (Zestril) 40 mg PO DAILY [facility] Stop: 05/25/18 09:01 Last Admin: 11/26/17 08:12 Dose: 40 mg Loratadine (Claritin) 10 mg PO DAILY PRN PRN Reason: Allergy Symptoms Metoprolol Succinate (Toprol Xl) 50 mg PO DAILY [facility] Stop: 05/25/18 09:01 Last Admin: 11/26/17 08:13 Dose: 50 mg Multivitamins/Calcium (Thera M Plus) 1 tab PO DAILY [facility] Stop: 05/24/18 09:01 Last Admin: 11/26/17 08:13 Dose: 1 tab Naloxone HCl (Narcan) 0.4 mg IVP Q2MIN PRN PRN Reason: SEE COMMENTS Stop: 05/23/18 17:41 Ondansetron HCl (Zofran) 4 mg IVP Q8HR PRN; Protocol PRN Reason: Nausea And Vomiting Stop: 05/23/18 17:34 Oxycodone/Acetaminophen (Percocet 5/325) 1 each PO Q6HR PRN PRN Reason: Severe Pain Stop: 05/26/18 16:51 Senna/Docusate Sodium (Senna Plus) 2 each PO BID STACIE PRN Reason: Protocol Stop: 05/23/18 21:01 Last Admin: 11/26/17 08:13 Dose: 2 each Terazosin HCl (Hytrin) 5 mg PO BID STACIE Stop: 05/23/18 21:01 Last Admin: 11/26/17 08:13 Dose: 5 mg Tramadol HCl (Ultram) 50 mg PO Q6HR PRN PRN Reason: Moderate Pain Stop: 05/26/18 16:51 Triamcinolone Acetonide (Kenalog) 1 appl TP BID PRN PRN Reason: Rash - EKG Interpretation EKG results cardiology: other (Telemetry reviewed with average heart rate is 12 hours 78, longest pause 2 seconds, remains A. fib, no events noted) - VTE Documentation of Mechanical Device: Intermittent pneumatic compression device Consult Discharge Plan - Plan Referrals: Reilly Martin MD [Primary Care Provider] - 12/05/17 7:40 am ()
--- NOTE | 2017-11-26 09:21 | Cardiothoracic Progress Note ---
Date of Encounter: 11/26/17 Time of Encounter: : - Assessment and plan (1) CAD (coronary artery disease) Current Visit: Yes Status: Acute The patient is an 82-year-old hypertensive man was admitted to [facility] with a diagnosis of an acute NSTEMI and atrial fibrillation. The patient was asymptomatic at this time, denying any substernal chest pain, shortness of breath, dyspnea exertion, lightheadedness, or syncope. He is admitted for further cardiac workup. Subsequent cardiac catheterization revealed severe 3 vessel CAD and an LVEF 35-40% (based on transthoracic echocardiogram). He underwent a MUGA scan which revealed an LVEF 44%. After the cardiac catheterization he developed a large right groin hematoma and his hemoglobin dropped 5 points. He has been recommended for CABG and modified Maze procedure. Believe that this procedure should be delayed for 1 week to allow the right groin hematoma to resolve. The patient is asking to be discharged home until his CABG. I will discuss this with the first assistant this morning. The assessment and plan as outlined above was discussed with the patient and/or family members who expressed understanding and agreement. All questions were answered. Qualifiers: Coronary Disease-Associated Artery/Lesion type: [place] artery [place] vs. transplanted heart: [place] heart Associated angina: without angina Qualified Code(s): I25.10 - Atherosclerotic heart disease of [place] coronary artery without angina pectoris - Subjective Interval history: The patient is sitting in a chair at bedside. He has had no substernal chest pain. He has no other complaints. Vital Signs, Last 4 Hours Temp Pulse Resp BP Pulse Ox 11/26/17 08:05 66 11/26/17 07:04 97.6 F 76 18 114/70 96 Oxgyen Flow Rate Oxygen Flow Rate (LPM) 2 Clinical Data, last 8 Hours Output, Urine Amount 0 Output, Urine Amount 125 Weight 11/24/17 11/25/17 11/26/17 23:59 23:59 23:59 Weight 115.8 kg 117.1 kg - Physical Examination General: Conversant, No Apparent Distress Neck: No JVD, Normal carotid pulses Cardiac: Normal S1 and S2, No Murmur, Other (Irregular rate and rhythm (atrial fibrillation)) Lungs: Normal Breath Sounds, No Wheeze, Rales, Rhonchi Neuro: Alert and responsive, No focal deficits noted Vascular: Normal capillary refill Abdomen: Other (Right inguinal hematoma resolving) Musculoskeletal: No Chest Wall Tenderness Extremities: No Clubbing, No Cyanosis, No Edema - Labs 11/26/17 03:02 11/26/17 03:02 Lab Results, Last 24 hours 11/25/17 11/26/17 11/26/17 12:09 03:02 03:02 WBC 8.4 Hgb 9.9 L 8.8 L Hct 31.2 L 27.3 L Plt Count 119 L Sodium 143 Potassium 3.7 Chloride 107 Carbon Dioxide 26 BUN 35 H Creatinine 1.26 Glucose 105 Calcium 8.1 L - VTE Documentation of Mechanical Device: Intermittent pneumatic compression device Consult Discharge Plan - Plan Referrals: Reilly Martin MD [Primary Care Provider] - 12/05/17 7:40 am ()
--- NOTE | 2017-11-26 17:33 | Internal Med Progress Note ---
Date of Encounter: 11/26/17 Time of Encounter: 12:30 - Assessment and plan (1) CAD (coronary artery disease) Current Visit: Yes Status: Acute Assessment and plan: LHC showed severe triple vessel disease 90% stenosis in mid LAD, 90 % stenosis in Proximal Circumflex, 99% stenosis in Mid RCA Cont ASA, Metoprolol MUGA scan confirmed LVEF 44% Seems appropriate for CABG CTS already talked to the pt and family Appreciate CTS and Cardiology recommendations Pt is still have not decide about further treatment options CABG vs Stent talked to the family at bed side and explained to them about current care Will defer to Cardiology and CTS about anticoagulation option would hold on anti coag for now due to hematoma Qualifiers: Coronary Disease-Associated Artery/Lesion type: [place] artery [place] vs. transplanted heart: [place] heart Associated angina: without angina Qualified Code(s): I25.10 - Atherosclerotic heart disease of [place] coronary artery without angina pectoris (2) Hematoma Current Visit: Yes Status: Acute Assessment and plan: Cont pressure dressing d/c Heparin Arterial U/S - did not show any pseudo aneurysm Hb dropped down to 8.8 today cont close monitoring H/H ..If Hb drops below 8.5 will transfuse No need of PRBC transfusion now holding anti coag for now Will defer to Cardiology and CTS about anticoagulation option (3) Anemia due to acute blood loss Current Visit: Yes Status: Acute Assessment and plan: Hb dropped down to 8.8 this morning - due to Rt groin hematoma cont close monitoring (4) Acute systolic (congestive) heart failure Current Visit: Yes Status: Acute Assessment and plan: 2 D Ehco showed LVEF 35-40%, Moderate global LV systolic dysfunction LHC showed severe triple disease 90% stenosis in mid LAD, 90 % stenosis in Proximal Circumflex, 99% stenosis in Mid RCA Cont ASA, Metoprolol Resumed PO Lasix (5) NSTEMI (non-ST elevated myocardial infarction) Current Visit: Yes Status: Acute Assessment and plan: s/p LHC Held heparin due to Rt groin hematoma (6) HLD (hyperlipidemia) Current Visit: Yes Status: Acute Assessment and plan: Reviewed FLP LDL -47 HDL 33 Qualifiers: Qualified Code(s): E78.5 - Hyperlipidemia, unspecified (7) Atrial fibrillation Current Visit: Yes Status: Acute Assessment and plan: rate controlled with Metoprolol Held anti coag due to large hematoma in Rt groin Qualifiers: Atrial fibrillation type: unspecified Qualified Code(s): I48.91 - Unspecified atrial fibrillation (8) Hypertension Current Visit: Yes Status: Acute Assessment and plan: stable with current meds Qualifiers: Hypertension type: essential hypertension Qualified Code(s): I10 - Essential (primary) hypertension (9) CKD (chronic kidney disease) stage 2, GFR 60-89 ml/min Current Visit: Yes Status: Acute Assessment and plan: stable and improved Cr cont close monitoring - Subjective Interval history: 82-year-old male with history of hypertension presented to the emergency department with complaint of shortness of breath as well as constipation. The patient went to an urgent care for constipation was found to be in A. fib. and so brought to [facility]. Has complaints of orthopnea, lower extremity swelling and dyspnea. He denies chest pain, n/v, palpitations, diaphoresis. Chest x-ray in ED showed pulmonary edema and pleural effusions. Pt was admitted here and started him on IV Lasix. His Trop were slightly elevated. His Echo showed systolic CHF LVEF @ 40%. He did go for LHC y/d which showed severe 3 vessel disease. CTS consulted for further eval Pt states he is feeling better now. Denied any CP/ SOB. His groin hematoma also stable. Denied any pain any where. Comfortably sitting in a chair - Constitutional Vitals: Temp Pulse Resp BP Pulse Ox 97.8 F 73 18 105/65 96 11/26/17 16:10 11/26/17 16:10 11/26/17 16:10 11/26/17 16:10 11/26/17 16:10 General appearance: Present: A&O X 3, no acute distress, answers questions appropriately - Head Head exam: Present: atraumatic, normal inspection - Neck Neck exam general surgery: Present: supple - Respiratory Respiratory exam: Present: decreased breath sounds. Absent: rales, respiratory distress, rhonchi, wheezes - Cardiovascular Cardiovascular exam: Present: +S1, +S2. Absent: tachycardia - GI/Abdominal GI/Abdominal exam: Present: normal bowel sounds, soft. Absent: rebound, rigid, tenderness - Extremities Exam Extremities exam: Present: pedal edema (trace). Absent: calf tenderness, tenderness Additional comments: Stable ecchymosis in Rt groin and Scrotum - Back Exam Back exam: Absent: CVA tenderness (L), CVA tenderness (R) - Neurological Exam Neurological exam: Present: alert, oriented X3 - Psychiatric Psychiatric exam: Present: normal affect, normal mood Internal Medicine: Result - Labs CBC & Chem 7: 11/26/17 03:02 11/26/17 03:02 Labs: Short CBC 11/26/17 Range/Units 03:02 WBC 8.4 (4.3-11.1) K/mcL Hgb 8.8 L (12.9-16.9) g/dL Hct 27.3 L (37.5-50.1) % Plt Count 119 L (140-400) K/mcL BMP 11/26/17 03:02 Sodium 143 Potassium 3.7 Chloride 107 Carbon Dioxide 26 BUN 35 H Creatinine 1.26 Glucose 105 Calcium 8.1 L - ABG Interpretation ABG results: PT/INR, D-dimer PT 15.4 Seconds (9.4-12.1) H 11/24/17 11:11 - VTE Documentation of Mechanical Device: Intermittent pneumatic compression device Consult Discharge Plan - Plan Referrals: Reilly Martin MD [Primary Care Provider] - 12/05/17 7:40 am ()
[2017-11-26 18:07] LABS: Hematocrit 30.4 % (37.5-50.1); Hemoglobin 9.6 g/dL (12.9-16.9)
[2017-11-27 05:09] LABS: Hematocrit 27.3 % (37.5-50.1); Hemoglobin 8.7 g/dL (12.9-16.9); Mean Corpuscular HGB Conc 31.9 g/dL (31.6-35.5); Mean Corpuscular Hemoglobin 30.1 pg (28.0-33.3); Mean Corpuscular Volume 94.5 fL (83.0-100.0); Mean Platelet Volume 11.6 fL (9.4-12.4); Platelet Count 122 K/mcL (140-400); Red Blood Count 2.89 M/mcL (4.19-5.50); Red Cell Distribution Width 15.5 % (11.5-14.5)
[2017-11-27 05:27] LABS: BUN/Creatinine Ratio 31 (6-26); Blood Urea Nitrogen 42 mg/dL (8-23); Calcium 8.3 mg/dL (8.6-10.3); Carbon Dioxide 27 mEq/L (23-29); Chloride 108 mEq/L (98-107); Glucose 107 mg/dL (70-105); Osmolality,Calculated 303 (280-300); Potassium 3.9 mEq/L (3.5-5.1); Sodium 141 mEq/L (136-145); eGFR For African Americans > 60 (> 60); eGFR For Non-African Americans 51 (> 60)
[2017-11-27] MEDS: Aspirin Enteric Coated 81 MG Tablet PO SCH (07:47)
[2017-11-27] MEDS: Metoprolol XL (24 HR) Succ 50 MG TAB.ER.24H PO SCH (07:47)
[2017-11-27] MEDS: Lisinopril 20 MG TABLET PO SCH (07:47)
[2017-11-27] MEDS: Furosemide 20 MG TABLET PO SCH ×2 (07:47→08:32)
[2017-11-27] MEDS: Multivit/Ca/Min/Fe/FA 1 TAB TABLET PO SCH (07:47)
[2017-11-27] MEDS: Sennosides/Docusate Sodium TABLET PO SCH ×2 (07:48→21:01)
--- NOTE | 2017-11-27 08:24 | Cardiology Progress Note ---
Date of Encounter: 11/27/17 Time of Encounter: 08:30 Assessment and Plan (1) Atrial fibrillation Current Visit: Yes Status: Acute Per Cardiology: Suspected new onset A. fib. Average heart rate on telemetry 72 for the past 12 hours, currently A. fib in the 80s. EF on echo 35-40%. On Toprol-XL 50 mg by mouth daily. Currently rate controlled. Recommend outpatient evaluation for BILL. Regarding long-term anticoagulation, IV hep. gtt now off again with R groin hematoma. Patient and family aware of increased risk of CVA off AC. Will re- evaluate detention AC during hosp curse (Xarelto ellis check of $28/month). Qualifiers: Atrial fibrillation type: unspecified Qualified Code(s): I48.91 - Unspecified atrial fibrillation (2) NSTEMI (non-ST elevated myocardial infarction) Current Visit: Yes Status: Acute Per Cardiology: Presented initially with mild troponin elevation with peak 0.11 in setting of atrial fibrillation and CHF. Suspected demand ischemia, however EF noted to be 35-40% on echo. Cath now shows severe 3 vessel CAD. CP free. (3) CAD (coronary artery disease) Current Visit: Yes Status: Acute Per Cardiology: [facility] showed: Lesion Findings/Interventions * Left Main Coronary Artery The LMCA is angiographically free of disease. * Left Anterior Descending There is a 50% stenosis in the Proximal LAD. There is a 90% stenosis in the Mid LAD. * Circumflex There is a 90% stenosis in the Proximal Circumflex. There is a 60% stenosis in the Mid Circumflex. * Right Coronary Artery There is a 99% stenosis in the Mid RCA. Additional Findings: Right Ilio-Femoral * 90% stenosis in the right iliac CT surgery following. On aspirin, PACHECO inhibitor, beta evangelista, statin. LFTs stable. Being evaluated for CABG versus high risk PCI (Dr. Andrade agreeable to perform at [facility] if patient decides). Patient and family still evaluating option of CABG versus high risk PCI. All questions answered. Discussed and reviewed with primary service, CT surgery, and Dr. Andrade. Qualifiers: Coronary Disease-Associated Artery/Lesion type: [place] artery [place] vs. transplanted heart: [place] heart Associated angina: without angina Qualified Code(s): I25.10 - Atherosclerotic heart disease of [place] coronary artery without angina pectoris (4) Cardiomyopathy Current Visit: Yes Status: Acute Per Cardiology: MUGA resulted, EF 44.3%. Net I&O +3729ml. On Lasix 20mg PO BID, creat slightly worse today, will decrease to daily. Will place on 1.5 L fluid restriction and strict I and O. Will add KAITY hose. Continue with daily weights. Qualifiers: Cardiomyopathy type: ischemic Qualified Code(s): I25.5 - Ischemic cardiomyopathy (5) Hematoma Current Visit: Yes Status: Acute Per Cardiology: H/H down from 14.4 to 8.7. BP and HR remain stable. Vascular report shows negative for pseudoaneurysm. Heparin drip off. Not on anticoagulation. Continue aspirin only for now. CP free. Consider transfusion if deemed clinically appropriate. Low suspicion for RP bleed, however can consider CT if deemed appropriate. Discussion w patient/family: The assessment and plan as outlined above was discussed with the patient and family who expressed understanding and agreement. All questions were answered. Thank you for involving us in the care of your patient. Please call with any questions. Subjective Principal diagnosis: Afib Interval history: Denies any chest pain, shortness of breath, palpitations. Reports improvement in right groin soreness. Objective Vital Signs, Last 4 Hours Temp Pulse Resp BP Pulse Ox 11/27/17 07:40 98.1 F 78 16 136/66 95 11/27/17 04:37 98.1 F 82 17 111/71 94 11/27/17 04:25 69 General: Conversant, No Apparent Distress HEENT: Atraumatic, Normocephaly, Mucus Membranes Moist Neck: No JVD, Normal carotid pulses Cardiac: Reg Rate and Rhythm, Normal S1 and S2, No Murmur Lungs: Normal Breath Sounds, No Wheeze, Rales, Rhonchi Neuro: Alert and responsive, No focal deficits noted Abdomen: Soft, Non-Tender Skin: Other (Right groin site hematoma soft and improving, large ecchymosis, leg warm to touch with right DP and PT pulses 1+ palpable) Musculoskeletal: No Chest Wall Tenderness Extremities: No Clubbing, No Cyanosis, Normal Pulses, Other (+1 nonpitting bilateral lower extremity edema) Results 11/27/17 04:18 11/27/17 04:18 Lab Results Laboratory Tests 11/27/17 11/27/17 04:18 04:18 Hgb 8.7 L Hct 27.3 L Creatinine 1.34 H Est GFR (Non-Af Amer) 51 L Active Medications Aspirin (Aspirin Ec) 81 mg PO DAILY [facility] Stop: 05/24/18 09:01 Last Admin: 11/27/17 07:47 Dose: 81 mg Atorvastatin Calcium (Lipitor) 80 mg PO HS [facility] Stop: 05/26/18 21:01 Last Admin: 11/26/17 21:10 Dose: 80 mg Chlordiazepoxide HCl (Librium) 5 mg PO TID PRN PRN Reason: Anxiety Stop: 05/23/18 17:30 Last Admin: 11/27/17 07:51 Dose: 5 mg Fluticasone Propionate (Flonase) 100 mcg NS DAILY PRN; Protocol PRN Reason: Allergy Symptoms Stop: 05/23/18 17:30 Furosemide (Lasix) 20 mg PO DAILY [facility] Stop: 05/29/18 09:01 Hydralazine HCl (Hydralazine) 10 mg IVP Q6HR PRN PRN Reason: Hypertension Stop: 05/25/18 11:53 Last Admin: 11/23/17 18:22 Dose: 10 mg Hydrocortisone (Cortaid) 1 appl TP BID STACEI PRN Reason: Protocol Stop: 05/25/18 21:01 Last Admin: 11/26/17 21:13 Dose: 1 appl Lisinopril (Zestril) 40 mg PO DAILY [facility] Stop: 05/25/18 09:01 Last Admin: 11/27/17 07:47 Dose: 40 mg Loratadine (Claritin) 10 mg PO DAILY PRN PRN Reason: Allergy Symptoms Metoprolol Succinate (Toprol Xl) 50 mg PO DAILY [facility]ACIE Stop: 05/25/18 09:01 Last Admin: 11/27/17 07:47 Dose: 50 mg Multivitamins/Calcium (Thera M Plus) 1 tab PO DAILY STACIE Stop: 05/24/18 09:01 Last Admin: 11/27/17 07:47 Dose: 1 tab Naloxone HCl (Narcan) 0.4 mg IVP Q2MIN PRN PRN Reason: SEE COMMENTS Stop: 05/23/18 17:41 Ondansetron HCl (Zofran) 4 mg IVP Q8HR PRN; Protocol PRN Reason: Nausea And Vomiting Stop: 05/23/18 17:34 Oxycodone/Acetaminophen (Percocet 5/325) 1 each PO Q6HR PRN PRN Reason: Severe Pain Stop: 05/26/18 16:51 Senna/Docusate Sodium (Senna Plus) 2 each PO BID STACIE PRN Reason: Protocol Stop: 05/23/18 21:01 Last Admin: 11/27/17 07:48 Dose: 2 each Terazosin HCl (Hytrin) 5 mg PO BID STACIE Stop: 05/23/18 21:01 Last Admin: 11/27/17 07:47 Dose: 5 mg Tramadol HCl (Ultram) 50 mg PO Q6HR PRN PRN Reason: Moderate Pain Stop: 05/26/18 16:51 Triamcinolone Acetonide (Kenalog) 1 appl TP BID PRN PRN Reason: Rash - EKG Interpretation EKG results cardiology: other (avg hr 72 on tele past 12 hrs, currently afib 70' s - 80's, few episodes of RVR) - VTE Documentation of Mechanical Device: Intermittent pneumatic compression device Consult Discharge Plan - Plan Referrals: Reilly Martin MD [Primary Care Provider] - 12/05/17 7:40 am ()
--- NOTE | 2017-11-27 10:47 | Cardiothoracic Progress Note ---
Date of Encounter: 11/27/17 Time of Encounter: 10:44 - Assessment and plan (1) Acute decompensated heart failure Current Visit: Yes Status: Acute The patient's hemoglobin has dropped further to 8.7. His right groin hematoma appears stable grossly. He is considering open heart surgery versus PTCA and stent placement. Either of these would be high risk. I answered all questions concerning possible open heart surgery. He is anxious to be discharged. If he is discharged I would place him only on by mouth aspirin. If he is discharged, I would see him in the office next week to check his groin hematoma. It may be several weeks until the patient is ready for open heart surgery. The patient has no further questions concerning open heart surgery at this time. - Subjective Interval history: The patient has had no chest pain and no angina. Vital Signs, Last 4 Hours Temp Pulse Resp BP Pulse Ox 11/27/17 07:40 98.1 F 78 16 136/66 95 Oxgyen Flow Rate Oxygen Flow Rate (LPM) 1 Weight 11/25/17 11/26/17 11/27/17 23:59 23:59 23:59 Weight 115.8 kg 117.1 kg 120.1 kg Lungs are clear to percussion and auscultation. Heart is in an atrial fibrillation. - Labs 11/27/17 04:18 11/27/17 04:18 Lab Results, Last 24 hours 11/26/17 11/27/17 11/27/17 17:28 04:18 04:18 WBC 7.3 Hgb 9.6 L 8.7 L Hct 30.4 L 27.3 L Plt Count 122 L Sodium 141 Potassium 3.9 Chloride 108 H Carbon Dioxide 27 BUN 42 H Creatinine 1.34 H Glucose 107 H Calcium 8.3 L - VTE Documentation of Mechanical Device: Intermittent pneumatic compression device Consult Discharge Plan - Plan Referrals: Reilly Martin MD [Primary Care Provider] - 12/05/17 7:40 am ()
--- NOTE | 2017-11-27 10:58 | Internal Med Progress Note ---
<Daquan Fernandez - Last Filed: 11/27/17 10:55> Date of Encounter: 11/27/17 Time of Encounter: 10:55 - Assessment and plan (1) CAD (coronary artery disease) Current Visit: Yes Status: Acute Assessment and plan: Left heart catheter showed triple vessel coronary artery disease. Patient offered both high risk PCI versus CABG. MUGA scan confirmed LVEF of 44%. Currently on aspirin, metoprolol, statin, Family still deciding on what route they would like to go. Anticoagulation hold due to right groin hematoma. Qualifiers: Coronary Disease-Associated Artery/Lesion type: [place] artery [place] vs. transplanted heart: [place] heart Associated angina: without angina Qualified Code(s): I25.10 - Atherosclerotic heart disease of [place] coronary artery without angina pectoris (2) Anemia due to acute blood loss Current Visit: Yes Status: Acute Assessment and plan: Secondary to right groin hematoma. Hemoglobin trending down currently 8.7. We will transfuse if less than 8. (3) Hematoma Current Visit: Yes Status: Acute Assessment and plan: Status post left heart catheterization On exam patient has bloody discharge from right scrotum and significant ecchymosis. Right lower extremity arterial duplex negative for pseudoaneurysm. Anticoagulation on hold Wound care consulted for assistance. (4) Acute systolic (congestive) heart failure Current Visit: Yes Status: Acute Assessment and plan: Echo shows EF of 35-40%. With moderate global left ventricular systolic dysfunction. Plan as above. (5) Atrial fibrillation Current Visit: Yes Status: Acute Assessment and plan: Currently rate is controlled. Continue metoprolol. Not on anti-correlation secondary to large hematoma. Qualifiers: Atrial fibrillation type: unspecified Qualified Code(s): I48.91 - Unspecified atrial fibrillation (6) CKD (chronic kidney disease) stage 2, GFR 60-89 ml/min Current Visit: Yes Status: Acute Assessment and plan: Patient's serum creatinine slightly worse today. Continue to monitor. On a fluid restricted, sodium restricted diet secondary to systolic CHF. Strict I's and O's. Avoid nephrotoxic agents. (7) Hypertension Current Visit: Yes Status: Acute Qualifiers: Hypertension type: essential hypertension Qualified Code(s): I10 - Essential (primary) hypertension (8) NSTEMI (non-ST elevated myocardial infarction) Current Visit: Yes Status: Acute Assessment and plan: Present with elevated troponin Chest x-ray showed moderate cardiomegaly. EKG showed atrial fibrillation with possible anterior and inferior myocardial infarction. Status post left heart catheterization. Plan as above. - Subjective Interval history: Patient continues to have drainage of the scrotal hematoma. Care was consultative yesterday for further assistance. Patient denies headache, blurry vision, chest pain, palpitations, shortness of breath, abdominal pain, nausea, vomiting, diarrhea. He is tolerating his diet. Family still deciding between undergoing high-risk PCI versus CABG. Likely what her procedure they choose will be done next week at the earliest due to his hematoma. - Constitutional Vitals: Temp Pulse Resp BP Pulse Ox 98.1 F 78 16 136/66 95 11/27/17 07:40 11/27/17 07:40 11/27/17 07:40 11/27/17 07:40 11/27/17 07:40 General appearance: Present: A&O X 3, no acute distress, answers questions appropriately - Other Additional findings: General: Pleasant without distress HEENT: Head atraumatic, normocephalic, EOMI, PERRL, neck nontender to palpation , absent lymphadenopathy, Moist Mucous Membranes, Heart: Regular rate and rhythm with no murmur Lungs: Clear to auscultation bilaterally Abdomen: Soft nontender, nondistended positive bowel sounds Skin: Right groin and scrotal ecchymosis with small bloody discharge around the scrotum. Extremities: Absent pedal edema, Neuro: Alert and oriented 3 Vascular: Pedal and radial pulses 2 out of 4 Internal Medicine: Result - Labs CBC & Chem 7: 11/27/17 04:18 11/27/17 04:18 Labs: Short CBC 11/26/17 11/27/17 Range/Units 17:28 04:18 WBC 7.3 (4.3-11.1) K/mcL Hgb 9.6 L 8.7 L (12.9-16.9) g/dL Hct 30.4 L 27.3 L (37.5-50.1) % Plt Count 122 L (140-400) K/mcL BMP 11/27/17 04:18 Sodium 141 Potassium 3.9 Chloride 108 H Carbon Dioxide 27 BUN 42 H Creatinine 1.34 H Glucose 107 H Calcium 8.3 L - ABG Interpretation ABG results: PT/INR, D-dimer PT 15.4 Seconds (9.4-12.1) H 11/24/17 11:11 - VTE Documentation of Mechanical Device: Intermittent pneumatic compression device Consult Discharge Plan - Plan Referrals: Reilly Martin MD [Primary Care Provider] - 12/05/17 7:40 am () <Aurelio Maldonado - Last Filed: 11/27/17 18:48> Date of Encounter: 11/27/17 - Assessment and plan (1) Anemia due to acute blood loss Current Visit: Yes Status: Acute (2) Hematoma Current Visit: Yes Status: Acute (3) Atrial fibrillation Current Visit: Yes Status: Chronic Qualifiers: Atrial fibrillation type: chronic Qualified Code(s): I48.2 - Chronic atrial fibrillation (4) CAD (coronary artery disease) Current Visit: Yes Status: Acute Qualifiers: Coronary Disease-Associated Artery/Lesion type: [place] artery [place] vs. transplanted heart: [place] heart Associated angina: without angina Qualified Code(s): I25.10 - Atherosclerotic heart disease of [place] coronary artery without angina pectoris (5) Acute systolic (congestive) heart failure Current Visit: Yes Status: Acute (6) Hypertension Current Visit: Yes Status: Acute Qualifiers: Hypertension type: essential hypertension Qualified Code(s): I10 - Essential (primary) hypertension (7) HLD (hyperlipidemia) Current Visit: Yes Status: Chronic Qualifiers: Hyperlipidemia type: mixed hyperlipidemia Qualified Code(s): E78.2 - Mixed hyperlipidemia (8) NSTEMI (non-ST elevated myocardial infarction) Current Visit: Yes Status: Acute (9) CKD (chronic kidney disease) stage 2, GFR 60-89 ml/min Current Visit: Yes Status: Acute - Constitutional Vitals: Temp Pulse Resp BP Pulse Ox 98.1 F 84 18 115/101 98 11/27/17 18:35 11/27/17 18:35 11/27/17 18:35 11/27/17 18:35 11/27/17 18:35 Internal Medicine: Result - Labs CBC & Chem 7: 11/27/17 04:18 11/27/17 04:18 Labs: Short CBC 11/27/17 Range/Units 04:18 WBC 7.3 (4.3-11.1) K/mcL Hgb 8.7 L (12.9-16.9) g/dL Hct 27.3 L (37.5-50.1) % Plt Count 122 L (140-400) K/mcL BMP 11/27/17 04:18 Sodium 141 Potassium 3.9 Chloride 108 H Carbon Dioxide 27 BUN 42 H Creatinine 1.34 H Glucose 107 H Calcium 8.3 L - ABG Interpretation ABG results: PT/INR, D-dimer PT 15.4 Seconds (9.4-12.1) H 11/24/17 11:11 - Attending Attestation I examined this patient and my medical decision-making was reviewed with the Resident Physician on 11/27/17. I agree with the documented findings, disposition and treatment plan as described except to the extent set forth below. Mr Sanchez has been admitted for NSTEMI/CAD and now has hematoma and anemia. He remains moderate to high risk due to potential for worsening clinical status. Mr Sanchez is resting. No new issues. H/H still decreasing. No fever or chills. Pain OK. Exam alert Comfortable Mucus membranes dry Heart reg No wheeze Hematoma present I/P 1. Anemia 2. Hematoma Further diagnoses and plan as above.
--- NOTE | 2017-11-27 20:51 | Electrocardiograph Report ---
[place] [id number] Test Date: 2017-11-22 Pat Name: Moncho Sanchez Department: 112 Room: 2N11 Gender: M Paramedic: : 1935 Requested By: Juan M Daigle Order Number: [id number] Reading MD: Rickie Hightower DO Measurements Intervals [place] Rate: 84 P: KS: 0 QRS: -7 QRSD: 100 T: 153 QT: 403 QTc: 444 Interpretive Statements ATRIAL FIBRILLATION POSSIBLE ANTERIOR INFARCT, AGE UNDETERMINED INFERIOR INFARCT, AGE UNDETERMINED NONSPECIFIC ST & T-WAVE ABNORMALITY Electronically Signed On 11-27-2017 20:49:55 EDT by Rickie Hightower DO
[2017-11-28 05:00] LABS: Basophils % 0.3 %; Eosinophils # 0.1 K/mcL (0.0-0.6); Eosinophils % 1.9 %; Hematocrit 27.7 % (37.5-50.1); Hemoglobin 8.9 g/dL (12.9-16.9); Immature Granulocytes % 0.3 % (0-4); Lymphocytes # 1.4 K/mcL (0.6-4.6); Lymphocytes % 22.2 %; Mean Corpuscular HGB Conc 32.1 g/dL (31.6-35.5); Mean Corpuscular Hemoglobin 29.9 pg (28.0-33.3); Mean Platelet Volume 11.1 fL (9.4-12.4); Monocytes # 0.7 K/mcL (0.0-1.3); Monocytes % 10.5 %; Neutrophils # 4.2 K/mcL (1.6-8.9); Platelet Count 129 K/mcL (140-400); Red Blood Count 2.98 M/mcL (4.19-5.50); Red Cell Distribution Width 15.2 % (11.5-14.5); Segmented Neutrophils % 64.8 %
[2017-11-28 05:15] LABS: BUN/Creatinine Ratio 36 (6-26); Blood Urea Nitrogen 47 mg/dL (8-23); Calcium 8.4 mg/dL (8.6-10.3); Carbon Dioxide 28 mEq/L (23-29); Chloride 108 mEq/L (98-107); Glucose 94 mg/dL (70-105); Osmolality,Calculated 304 (280-300); Potassium 3.9 mEq/L (3.5-5.1); Sodium 141 mEq/L (136-145); eGFR For African Americans > 60 (> 60); eGFR For Non-African Americans 53 (> 60)
--- NOTE | 2017-11-28 08:58 | Cardiothoracic Progress Note ---
Date of Encounter: 11/28/17 Time of Encounter: 08:56 - Assessment and plan (1) Acute decompensated heart failure Current Visit: Yes Status: Acute The patient had a family meeting last night and decided on angioplasty with stent placement. Given his multiple comorbidities, I feel that this is a good approach. I will sign off. Please call if needed. - Subjective Interval history: The patient has had no angina and no chest pain. Vital Signs, Last 4 Hours Temp Pulse Resp BP Pulse Ox 11/28/17 07:39 97.5 F L 78 18 138/77 95 Oxgyen Flow Rate Oxygen Flow Rate (LPM) 1 Clinical Data, last 8 Hours Output, Urine Amount 350 Weight 11/26/17 11/27/17 11/28/17 23:59 23:59 23:59 Weight 117.1 kg 120.1 kg 116.8 kg Lungs are clear to percussion and auscultation. Heart is in an atrial fibrillation. - Labs 11/28/17 04:37 11/28/17 04:37 Lab Results, Last 24 hours 11/28/17 11/28/17 04:37 04:37 WBC 6.4 Hgb 8.9 L Hct 27.7 L Plt Count 129 L Sodium 141 Potassium 3.9 Chloride 108 H Carbon Dioxide 28 BUN 47 H Creatinine 1.30 Glucose 94 Calcium 8.4 L - VTE Documentation of Mechanical Device: Intermittent pneumatic compression device Consult Discharge Plan - Plan Referrals: Reilly Martin MD [Primary Care Provider] - 12/05/17 7:40 am ()
[2017-11-28] MEDS: Aspirin Enteric Coated 81 MG Tablet PO SCH (08:59)
[2017-11-28] MEDS: Lisinopril 20 MG TABLET PO SCH (08:59)
[2017-11-28] MEDS: Multivit/Ca/Min/Fe/FA 1 TAB TABLET PO SCH (08:59)
[2017-11-28] MEDS: Furosemide 20 MG TABLET PO SCH (09:00)
[2017-11-28] MEDS: Sennosides/Docusate Sodium TABLET PO SCH ×2 (09:00→21:39)
[2017-11-28] MEDS: Metoprolol XL (24 HR) Succ 50 MG TAB.ER.24H PO SCH (09:00)
--- NOTE | 2017-11-28 10:15 | Discharge Summary ---
Orders not resulted at time of discharge: Pending orders 11/23/17 16:14 NM muga rest single study [NM] Routine Date of Encounter: 11/28/17 Time of Encounter: 10:13 - Discharge Diagnosis (1) CAD (coronary artery disease) Priority: Primary Status: Acute Qualifiers: Coronary Disease-Associated Artery/Lesion type: [place] artery [place] vs. transplanted heart: [place] heart Associated angina: without angina Qualified Code(s): I25.10 - Atherosclerotic heart disease of [place] coronary artery without angina pectoris (2) Anemia due to acute blood loss Priority: Secondary Status: Acute (3) Hematoma Priority: Secondary Status: Acute (4) Acute systolic (congestive) heart failure Priority: Secondary Status: Acute (5) Atrial fibrillation Priority: Secondary Status: Chronic Qualifiers: Atrial fibrillation type: chronic Qualified Code(s): I48.2 - Chronic atrial fibrillation (6) CKD (chronic kidney disease) stage 2, GFR 60-89 ml/min Priority: Secondary Status: Acute (7) Hypertension Priority: Secondary Status: Acute Qualifiers: Hypertension type: essential hypertension Qualified Code(s): I10 - Essential (primary) hypertension (8) NSTEMI (non-ST elevated myocardial infarction) Priority: Secondary Status: Acute Hospital course: Mr. Sanchez is a 82 year old male Discharge discussed with: patient, family - Time Spent with Patient Total time spent providing and/or coordinating discharge services: - Discharge Medications Home Medications: Aspirin Enteric Coated [Aspirin EC] 81 mg PO DAILY 11/21/17 [History] Cetirizine HCl [Zyrtec] 10 mg PO DAILY PRN 11/21/17 [History] Chlordiazepoxide [Librium] 5 mg PO TID PRN 11/21/17 [History] Fexofenadine HCl [Allergy Relief] 180 mg PO DAILY PRN 11/21/17 [History] Fluticasone Propionate Nasal [Flonase] 100 mcg NS DAILY PRN 11/21/17 [History] Lisinopril [Zestril] 40 mg PO BID 11/21/17 [History] Multivitamin [One Daily Multivitamin] 1 each PO DAILY 11/21/17 [History] Terazosin [Hytrin] 5 mg PO BID 11/21/17 [History] Triamcinolone Acetonide 1 appl TP BID PRN 11/21/17 [History] Allergies/Adverse Reactions: 3 Allergy/AdvReac Type Severity Reaction Status Date / Time Penicillins Allergy Rash Verified 11/21/17 13:18 Date of admission: 11/21/17 17:40 Primary care physician: Reilly Martin MD Consults: 11/22/17 14:21 Consult to Nurse Navigator [CONS] Routine Comment: CHF 11/23/17 15:32 Consult to Cardiac Rehabilitation-Phase1 [CONS] Routine Comment: Reason for Consult: post op diagnostic cath Call Completed: Yes 11/23/17 15:33 Consult to Cardiothoracic Surgery [CONS] Routine Consulting Provider: Cardiothoracic Surgery Rocio Reason for Consult: possible CABG Call Completed: Yes 11/26/17 15:37 Consult to Wound Care [CONS] Routine Reason for Consult: S/P HEMATOMA FROM HEART CATH, SCROTUM LEAKING BLOODY FLUID Call Completed: Yes Discharging clinician: Daquan Fernandez Anticipated date of discharge: 11/28/17 - Constitutional Vitals: Temp Pulse Resp BP Pulse Ox 97.5 F L 78 18 138/77 95 11/28/17 07:39 11/28/17 07:39 11/28/17 07:39 11/28/17 07:39 11/28/17 07:39 General appearance: Present: A&O X 3, no acute distress, answers questions appropriately - Other Additional findings: General: Pleasant without distress HEENT: Head atraumatic, normocephalic, EOMI, PERRL, neck nontender to palpation , absent lymphadenopathy, Moist Mucous Membranes, Heart: Regular rate and rhythm with no murmur Lungs: Clear to auscultation bilaterally Abdomen: Soft nontender, nondistended positive bowel sounds Skin: Right groin and scrotal ecchymosis without discharge Extremities: Absent pedal edema, Neuro: Alert and oriented 3 Vascular: Pedal and radial pulses 2 out of 4 - Patient Status Condition: Undetermined - Discharge Instructions Follow Up With: Reilly Martin MD [Primary Care Provider] - 12/05/17 7:40 am () - VTE Documentation of Mechanical Device: Intermittent pneumatic compression device
--- NOTE | 2017-11-28 10:36 | Cardiology Progress Note ---
Date of Encounter: 11/28/17 Time of Encounter: 09:30 Assessment and Plan (1) Atrial fibrillation Current Visit: Yes Status: Chronic Per Cardiology: -Suspected new onset A. fib. -Average heart rate on telemetry 72 for the past 12 hours - EF on echo 35-40%. -On Toprol-XL 50 mg by mouth daily. Currently rate controlled. -[id number] score 4 (age, HTN, vascular disease). -Recommend outpatient evaluation for BILL. -Regarding long-term anticoagulation, IV hep. gtt now off again with R groin hematoma. Patient and family aware of increased risk of CVA off AC. -Will re-evaluate respiratory care practitioner AC during hosp curse ([employer] ellis check of $28/ month). Qualifiers: Atrial fibrillation type: chronic Qualified Code(s): I48.2 - Chronic atrial fibrillation (2) NSTEMI (non-ST elevated myocardial infarction) Current Visit: Yes Status: Acute Per Cardiology: -Presented initially with mild troponin elevation with peak 0.11 in setting of atrial fibrillation and CHF. -Suspected demand ischemia, however EF noted to be 35-40% on echo. -Cath now shows severe 3 vessel CAD. -CP free. -Patient was seen and evaluated by CT surgery. However, at this point patient has elected for high risk staged PCI. Possibly next week, transradial approach. -Per discussion with , recommended to stay inpatient until staged PCI. (3) CAD (coronary artery disease) Current Visit: Yes Status: Acute Per Cardiology: -LHC showed: Lesion Findings/Interventions * Left Main Coronary Artery The LMCA is angiographically free of disease. * Left Anterior Descending There is a 50% stenosis in the Proximal LAD. There is a 90% stenosis in the Mid LAD. * Circumflex There is a 90% stenosis in the Proximal Circumflex. There is a 60% stenosis in the Mid Circumflex. * Right Coronary Artery There is a 99% stenosis in the Mid RCA. Additional Findings: Right Ilio-Femoral * 90% stenosis in the right iliac -CT surgery evaluated -On aspirin, PACHECO inhibitor, beta evangelista, statin. LFTs stable. -At this time, patient has elected for high risk staged PCI. -Will continue to monitor. Qualifiers: Coronary Disease-Associated Artery/Lesion type: [place] artery [place] vs. transplanted heart: [place] heart Associated angina: without angina Qualified Code(s): I25.10 - Atherosclerotic heart disease of [place] coronary artery without angina pectoris (4) Hematoma Current Visit: Yes Status: Acute Per Cardiology: -H/H down from 14.4 to 8.7. Now hemoglobin today 8.9. -BP and HR remain stable. -Vascular report shows negative for pseudoaneurysm. - Heparin drip off. Not on anticoagulation. -Continue aspirin only for now. - Consider transfusion if deemed clinically appropriate. - Low suspicion for RP bleed, however can consider CT if deemed appropriate. -reports is able to walk to bathroom now with assistance. -Today, large area of ecchymosis noted, however no hematoma appreciated on exam today. -Will continue to monitor. (5) Cardiomyopathy Current Visit: Yes Status: Acute Per Cardiology: -MUGA resulted, EF 44.3%. Net I&O +3839ml. -On lasix po daily. -Mild pedal edema noted, states much imrpoved. -on 1.5 L fluid restriction and strict I and O. -Recommend KAITY hose. Continue with daily weights. -Will continue to monitor. Qualifiers: Cardiomyopathy type: ischemic Qualified Code(s): I25.5 - Ischemic cardiomyopathy Discussion w patient/family: The assessment and plan as outlined above was discussed with the patient and/or family members who expressed understanding and agreement. All questions were answered. Thank you for involving us in the care of your patient. Please call with any questions. Discussed and reviewed with . Subjective Principal diagnosis: a.fib, cardiomyopathy, cad Interval history: Patient denies chest pain this morning. States is able to walk to the bathroom with assistance. Patient reports leg pain is improved today. Reports edema is much improved today. Objective Vital Signs, Last 4 Hours Temp Pulse Resp BP Pulse Ox 11/28/17 07:39 97.5 F L 78 18 138/77 95 General: Conversant, No Apparent Distress HEENT: Atraumatic, Normocephaly, Mucus Membranes Moist Neck: No JVD, Normal carotid pulses Cardiac: Normal S1 and S2, No Murmur, Other (Irregularly irregular ) Lungs: Normal Breath Sounds, No Wheeze, Rales, Rhonchi Neuro: Alert and responsive, No focal deficits noted Abdomen: Soft, Non-Tender Skin: No rashes noted on visualized skin, Other (Large right groin ecchymosis noted, extending down to thigh, and up into abdominal folds. No hardness noted today. ) Musculoskeletal: No Chest Wall Tenderness Extremities: No Clubbing, No Cyanosis, Normal Pulses, Other (Mild bilateral pedal edema noted. ) Results 11/28/17 04:37 11/28/17 04:37 Lab Results Active Medications Aspirin (Aspirin Ec) 81 mg PO DAILY STACIE Stop: 05/24/18 09:01 Last Admin: 11/28/17 08:59 Dose: 81 mg Atorvastatin Calcium (Lipitor) 80 mg PO HS STACIE Stop: 05/26/18 21:01 Last Admin: 11/27/17 21:00 Dose: 80 mg Chlordiazepoxide HCl (Librium) 5 mg PO TID PRN PRN Reason: Anxiety Stop: 05/23/18 17:30 Last Admin: 11/28/17 09:00 Dose: 5 mg Fluticasone Propionate (Flonase) 100 mcg NS DAILY PRN; Protocol PRN Reason: Allergy Symptoms Stop: 05/23/18 17:30 Furosemide (Lasix) 20 mg PO DAILY STACIE Stop: 05/29/18 09:01 Last Admin: 11/28/17 09:00 Dose: 20 mg Hydralazine HCl (Hydralazine) 10 mg IVP Q6HR PRN PRN Reason: Hypertension Stop: 05/25/18 11:53 Last Admin: 11/23/17 18:22 Dose: 10 mg Hydrocortisone (Cortaid) 1 appl TP BID STACIE PRN Reason: Protocol Stop: 05/25/18 21:01 Last Admin: 11/28/17 09:00 Dose: Not Given Lisinopril (Zestril) 40 mg PO DAILY STACIE Stop: 05/25/18 09:01 Last Admin: 11/28/17 08:59 Dose: 40 mg Loratadine (Claritin) 10 mg PO DAILY PRN PRN Reason: Allergy Symptoms Metoprolol Succinate (Toprol Xl) 50 mg PO DAILY [facility] Stop: 05/25/18 09:01 Last Admin: 11/28/17 09:00 Dose: 50 mg Multivitamins/Calcium (Thera M Plus) 1 tab PO DAILY STACIE Stop: 05/24/18 09:01 Last Admin: 11/28/17 08:59 Dose: 1 tab Naloxone HCl (Narcan) 0.4 mg IVP Q2MIN PRN PRN Reason: SEE COMMENTS Stop: 05/23/18 17:41 Ondansetron HCl (Zofran) 4 mg IVP Q8HR PRN; Protocol PRN Reason: Nausea And Vomiting Stop: 05/23/18 17:34 Oxycodone/Acetaminophen (Percocet 5/325) 1 each PO Q6HR PRN PRN Reason: Severe Pain Stop: 05/26/18 16:51 Senna/Docusate Sodium (Senna Plus) 2 each PO BID STACIE PRN Reason: Protocol Stop: 05/23/18 21:01 Last Admin: 11/28/17 09:00 Dose: 2 each Terazosin HCl (Hytrin) 5 mg PO BID STACIE Stop: 05/23/18 21:01 Last Admin: 11/28/17 08:59 Dose: 5 mg Tramadol HCl (Ultram) 50 mg PO Q6HR PRN PRN Reason: Moderate Pain Stop: 05/26/18 16:51 Triamcinolone Acetonide (Kenalog) 1 appl TP BID PRN PRN Reason: Rash Laboratory Tests 11/21/17 11/27/17 11/28/17 14:19 04:18 04:37 Hgb 14.4 8.7 L 8.9 L Creatinine 11/28/17 04:37 Hgb Creatinine 1.30 - Imaging and Cardiology Chest Xray: report reviewed Echo: report reviewed Cardiac cath: report reviewed - EKG Interpretation EKG results cardiology: other (Telemetry reviewed with average HR previous 12 hours noted to be 72, a.fib. PVCs noted. One 5 beat run of non-sustained VT noted.) - VTE Documentation of Mechanical Device: Intermittent pneumatic compression device Consult Discharge Plan - Plan Referrals: Reilly Martin MD [Primary Care Provider] - 12/05/17 7:40 am ()
--- NOTE | 2017-11-28 11:53 | Internal Med Progress Note ---
<Daquan Fernandez - Last Filed: 11/28/17 11:50> Date of Encounter: 11/28/17 Time of Encounter: 11:55 - Assessment and plan (1) CAD (coronary artery disease) Current Visit: Yes Status: Acute Assessment and plan: Left heart catheter showed triple vessel coronary artery disease. Patient offered both high risk PCI versus CABG. MUGA scan confirmed LVEF of 44%. Currently on aspirin, metoprolol, statin, Family decided on undergoing PCI Anticoagulation hold due to right groin hematoma. Cardiology would like patient to remain inpatient until PCI. Patient transferred to cardiology service Qualifiers: Coronary Disease-Associated Artery/Lesion type: [place] artery [place] vs. transplanted heart: [place] heart Associated angina: without angina Qualified Code(s): I25.10 - Atherosclerotic heart disease of [place] coronary artery without angina pectoris (2) Anemia due to acute blood loss Current Visit: Yes Status: Resolved Assessment and plan: Secondary to right groin hematoma. Hemoglobin stable (3) Hematoma Current Visit: Yes Status: Acute Assessment and plan: Status post left heart catheterization On exam patient has no discharge from right scrotum and stable ecchymosis. Right lower extremity arterial duplex negative for pseudoaneurysm. Anticoagulation on hold Wound care consulted for assistance. stable today (4) Acute systolic (congestive) heart failure Current Visit: Yes Status: Acute Assessment and plan: Echo shows EF of 35-40%. With moderate global left ventricular systolic dysfunction. Plan as above. (5) Atrial fibrillation Current Visit: Yes Status: Chronic Assessment and plan: Currently rate is controlled. Continue metoprolol. Not on anti-correlation secondary to large hematoma. Qualifiers: Atrial fibrillation type: chronic Qualified Code(s): I48.2 - Chronic atrial fibrillation (6) CKD (chronic kidney disease) stage 2, GFR 60-89 ml/min Current Visit: Yes Status: Acute Assessment and plan: stable Continue to monitor. On a fluid restricted, sodium restricted diet secondary to systolic CHF. Strict I's and O's. Avoid nephrotoxic agents. (7) Hypertension Current Visit: Yes Status: Acute Qualifiers: Hypertension type: essential hypertension Qualified Code(s): I10 - Essential (primary) hypertension (8) NSTEMI (non-ST elevated myocardial infarction) Current Visit: Yes Status: Acute Assessment and plan: Present with elevated troponin Chest x-ray showed moderate cardiomegaly. EKG showed atrial fibrillation with possible anterior and inferior myocardial infarction. Status post left heart catheterization. Plan as above. - Subjective Interval history: No acute events overnight. Denies bleeding, discharge. After family meeting yesterday patient decided to undergo PCI. He denies headache, blurry vision, chest pain, palpitations, sob, abdominal pain, N/V/D. - Constitutional Vitals: Temp Pulse Resp BP Pulse Ox 97.5 F L 78 18 138/77 95 11/28/17 07:39 11/28/17 07:39 11/28/17 07:39 11/28/17 07:39 11/28/17 07:39 General appearance: Present: A&O X 3, no acute distress, answers questions appropriately - Other Additional findings: General: Pleasant without distress Heart: Regular rate and rhythm with no murmur Lungs: Clear to auscultation bilaterally Abdomen: Soft nontender, nondistended positive bowel sounds Skin: Right groin and scrotal ecchymosis without discharge or bleeding around the scrotum. Extremities: Absent pedal edema, Neuro: Alert and oriented 3 Vascular: Pedal and radial pulses 2 out of 4 Internal Medicine: Result - Labs CBC & Chem 7: 11/28/17 04:37 11/28/17 04:37 Labs: Short CBC 11/28/17 Range/Units 04:37 WBC 6.4 (4.3-11.1) K/mcL Hgb 8.9 L (12.9-16.9) g/dL Hct 27.7 L (37.5-50.1) % Plt Count 129 L (140-400) K/mcL Neutrophils # 4.2 (1.6-8.9) K/mcL BMP 11/28/17 04:37 Sodium 141 Potassium 3.9 Chloride 108 H Carbon Dioxide 28 BUN 47 H Creatinine 1.30 Glucose 94 Calcium 8.4 L - ABG Interpretation ABG results: PT/INR, D-dimer PT 15.4 Seconds (9.4-12.1) H 11/24/17 11:11 - VTE Documentation of Mechanical Device: Intermittent pneumatic compression device Consult Discharge Plan - Plan Referrals: Reilly Martin MD [Primary Care Provider] - 12/05/17 7:40 am () <Aurelio Maldonado - Last Filed: 11/28/17 18:11> Date of Encounter: 11/28/17 - Assessment and plan (1) Anemia due to acute blood loss Current Visit: Yes Status: Resolved (2) Hematoma Current Visit: Yes Status: Acute (3) Atrial fibrillation Current Visit: Yes Status: Chronic Qualifiers: Atrial fibrillation type: chronic Qualified Code(s): I48.2 - Chronic atrial fibrillation (4) CAD (coronary artery disease) Current Visit: Yes Status: Acute Qualifiers: Coronary Disease-Associated Artery/Lesion type: [place] artery [place] vs. transplanted heart: [place] heart Associated angina: without angina Qualified Code(s): I25.10 - Atherosclerotic heart disease of [place] coronary artery without angina pectoris (5) Acute systolic (congestive) heart failure Current Visit: Yes Status: Acute (6) Hypertension Current Visit: Yes Status: Acute Qualifiers: Hypertension type: essential hypertension Qualified Code(s): I10 - Essential (primary) hypertension (7) HLD (hyperlipidemia) Current Visit: Yes Status: Chronic Qualifiers: Hyperlipidemia type: mixed hyperlipidemia Qualified Code(s): E78.2 - Mixed hyperlipidemia (8) NSTEMI (non-ST elevated myocardial infarction) Current Visit: Yes Status: Acute (9) CKD (chronic kidney disease) stage 2, GFR 60-89 ml/min Current Visit: Yes Status: Acute - Constitutional Vitals: Temp Pulse Resp BP Pulse Ox 97.9 F 67 18 109/50 93 11/28/17 15:53 11/28/17 15:53 11/28/17 15:53 11/28/17 15:53 11/28/17 15:53 Internal Medicine: Result - Labs CBC & Chem 7: 11/28/17 04:37 11/28/17 04:37 Labs: Short CBC 11/28/17 Range/Units 04:37 WBC 6.4 (4.3-11.1) K/mcL Hgb 8.9 L (12.9-16.9) g/dL Hct 27.7 L (37.5-50.1) % Plt Count 129 L (140-400) K/mcL Neutrophils # 4.2 (1.6-8.9) K/mcL BMP 11/28/17 04:37 Sodium 141 Potassium 3.9 Chloride 108 H Carbon Dioxide 28 BUN 47 H Creatinine 1.30 Glucose 94 Calcium 8.4 L - ABG Interpretation ABG results: PT/INR, D-dimer PT 15.4 Seconds (9.4-12.1) H 11/24/17 11:11 - Attending Attestation I examined this patient and my medical decision-making was reviewed with the Resident Physician on 11/28/17. I agree with the documented findings, disposition and treatment plan as described except to the extent set forth below. Mr Sanchez is currently admitted for acute NSTEMI and groin hematoma. He remains moderate risk at this time. Mr Sanchez is resting at this time. He has decided on PCI. No fever or chills or new issues. Exam alert Comfortable Mucus membranes dry Heart reg No wheeze I/P 1. NSTEMI 2. CAD At this time we are transferring care to cardiology service. He is awaiting PCI. Further diagnoses and plan as above.
--- NOTE | 2017-11-28 13:30 | Event Note ---
Date of Encounter: 11/28/17 Time of Encounter: 13:28 - Cardiology Event Note Discussed with Dr. Andrade. Hgb and hematoma are now stable. Start heparin 5000 mg SQ BID for DVT prophylaxis.
[2017-11-28] MEDS: *HR* Heparin 5,000 UNIT/ML VIAL SQ SCH (17:58)
--- NOTE | 2017-11-28 18:55 | Electrocardiograph Report ---
[place] [id number] Test Date: 2017-11-24 Pat Name: Moncho Sanchez Department: 112 Room: 2N11 Gender: M Cardiac Catheterization Technologist: : [id number] Requested By: Viraj Burnette Order Number: [id number] Reading MD: Bobby Andrade MD Measurements Intervals [place] Rate: 66 P: TN: 0 QRS: -7 QRSD: 99 T: 187 QT: 479 QTc: 493 Interpretive Statements ATRIAL FIBRILLATION ANTEROLATERAL ISCHEMIA Electronically Signed On 11-28-2017 18:53:46 EDT by Bobby Andrade MD
[2017-11-29] MEDS: *HR* Heparin 5,000 UNIT/ML VIAL SQ SCH ×2 (06:27→16:05)
[2017-11-29] MEDS: Metoprolol XL (24 HR) Succ 50 MG TAB.ER.24H PO SCH (08:03)
[2017-11-29] MEDS: Aspirin Enteric Coated 81 MG Tablet PO SCH (08:04)
[2017-11-29] MEDS: Sennosides/Docusate Sodium TABLET PO SCH ×2 (08:04→21:27)
[2017-11-29] MEDS: Lisinopril 20 MG TABLET PO SCH (08:04)
[2017-11-29] MEDS: Furosemide 20 MG TABLET PO SCH ×2 (08:04→16:05)
[2017-11-29] MEDS: Multivit/Ca/Min/Fe/FA 1 TAB TABLET PO SCH (08:05)
[2017-11-29 09:47] LABS: Hematocrit 28.7 % (37.5-50.1); Hemoglobin 9.3 g/dL (12.9-16.9); Mean Corpuscular HGB Conc 32.4 g/dL (31.6-35.5); Mean Corpuscular Hemoglobin 30.1 pg (28.0-33.3); Mean Corpuscular Volume 92.9 fL (83.0-100.0); Platelet Count 151 K/mcL (140-400); Red Blood Count 3.09 M/mcL (4.19-5.50); Red Cell Distribution Width 15.4 % (11.5-14.5)
--- NOTE | 2017-11-29 10:40 | Cardiology Progress Note ---
Date of Encounter: 11/29/17 Time of Encounter: 09:00 Assessment and Plan (1) Atrial fibrillation Current Visit: Yes Status: Chronic Per Cardiology: -Suspected new onset A. fib. -Average heart rate on telemetry 72 for the past 12 hours - EF on echo 35-40%. -On Toprol-XL 50 mg by mouth daily. Currently rate controlled. -Ehluv0vkus score 4 (age, HTN, vascular disease). -Recommend outpatient evaluation for BILL. -Regarding long-term anticoagulation, IV hep. gtt now off again with R groin hematoma. Patient and family aware of increased risk of CVA off AC. Now on DVT prophylaxis heparin. -Will re-evaluate terminologist AC during hosp curse ([employer] ellis check of $28/ month). Qualifiers: Atrial fibrillation type: chronic Qualified Code(s): I48.2 - Chronic atrial fibrillation (2) NSTEMI (non-ST elevated myocardial infarction) Current Visit: Yes Status: Acute Per Cardiology: -Presented initially with mild troponin elevation with peak 0.11 in setting of atrial fibrillation and CHF. -Suspected demand ischemia, however EF noted to be 35-40% on echo. -Cath now shows severe 3 vessel CAD. -CP free. -Patient was seen and evaluated by CT surgery. However, at this point patient has elected for high risk staged PCI. -Per discussion with , possible staged PCI tomorrow or Sunday pending lab results. -Per discussion with , recommended to stay inpatient until staged PCI. (3) CAD (coronary artery disease) Current Visit: Yes Status: Acute Per Cardiology: -[facility] showed: Lesion Findings/Interventions * Left Main Coronary Artery The LMCA is angiographically free of disease. * Left Anterior Descending There is a 50% stenosis in the Proximal LAD. There is a 90% stenosis in the Mid LAD. * Circumflex There is a 90% stenosis in the Proximal Circumflex. There is a 60% stenosis in the Mid Circumflex. * Right Coronary Artery There is a 99% stenosis in the Mid RCA. Additional Findings: Right Ilio-Femoral * 90% stenosis in the right iliac -CT surgery evaluated -On aspirin, PACHECO inhibitor, beta evangelista, statin. LFTs stable. -At this time, patient has elected for high risk staged PCI. -Will continue to monitor. Qualifiers: Coronary Disease-Associated Artery/Lesion type: [place] artery [place] vs. transplanted heart: [place] heart Associated angina: without angina Qualified Code(s): I25.10 - Atherosclerotic heart disease of [place] coronary artery without angina pectoris (4) Hematoma Current Visit: Yes Status: Acute Per Cardiology: -H/H down from 14.4 to 8.7. Now hemoglobin today 9.3 -BP and HR remain stable. -Vascular report shows negative for pseudoaneurysm. - Heparin drip off. - Low suspicion for RP bleed, however can consider CT if deemed appropriate. -reports is able to walk to bathroom now with assistance. -Today, large area of ecchymosis noted, however no hematoma appreciated on exam today. -Will continue to monitor. (5) Cardiomyopathy Current Visit: Yes Status: Acute Per Cardiology: -MUGA resulted, EF 44.3%. -Net I&O +4539ml. -On lasix po daily. -Mild pedal edema noted. -on 1.5 L fluid restriction and strict I and O. -Weight increased today. -With increasing net positive fluid balance, and increased weights, will increase lasix. -Will continue to monitor creatinine closely. -Recommend KAITY hose. Continue with daily weights. -Will continue to monitor. Qualifiers: Cardiomyopathy type: ischemic Qualified Code(s): I25.5 - Ischemic cardiomyopathy Discussion w patient/family: The assessment and plan as outlined above was discussed with the patient who expressed understanding and agreement. All questions were answered. Thank you for involving us in the care of your patient. Please call with any questions. Discussed and reviewed with . Subjective Principal diagnosis: a.fib, cardiomyopathy, cad Interval history: Patient denies chest pain this morning. States is able to walk to the bathroom with assistance. Patient reports leg pain is improved today. Objective Vital Signs, Last 4 Hours Temp Pulse Resp BP Pulse Ox 11/29/17 08:00 75 11/29/17 07:20 98.6 F 52 18 135/81 95 General: Conversant, No Apparent Distress HEENT: Atraumatic, Normocephaly, Mucus Membranes Moist Neck: No JVD, Normal carotid pulses Cardiac: Reg Rate and Rhythm, Normal S1 and S2, No Murmur Lungs: Normal Breath Sounds, No Wheeze, Rales, Rhonchi Neuro: Alert and responsive, No focal deficits noted Abdomen: Soft, Non-Tender Skin: No rashes noted on visualized skin, Other (Large area of right groin ecchymosis noted, soft to palpation. ) Musculoskeletal: No Chest Wall Tenderness Extremities: No Clubbing, No Cyanosis, Normal Pulses, Other (Mild bilateral pedal edema noted. ) Results 11/29/17 09:17 11/29/17 09:17 Lab Results Active Medications Aspirin (Aspirin Ec) 81 mg PO DAILY [facility] Stop: 05/24/18 09:01 Last Admin: 11/29/17 08:04 Dose: 81 mg Atorvastatin Calcium (Lipitor) 80 mg PO HS [facility]ACIE Stop: 05/26/18 21:01 Last Admin: 11/28/17 21:39 Dose: 80 mg Chlordiazepoxide HCl (Librium) 5 mg PO TID PRN PRN Reason: Anxiety Stop: 05/23/18 17:30 Last Admin: 11/29/17 08:05 Dose: 5 mg Clopidogrel Bisulfate (Plavix) 75 mg PO DAILY [facility]ACIE Stop: 05/31/18 09:01 Last Admin: 11/29/17 08:03 Dose: 75 mg Fluticasone Propionate (Flonase) 100 mcg NS DAILY PRN; Protocol PRN Reason: Allergy Symptoms Stop: 05/23/18 17:30 Furosemide (Lasix) 20 mg PO DAILY [facility] Stop: 05/29/18 09:01 Last Admin: 11/29/17 08:04 Dose: 20 mg Heparin Sodium (Porcine) (Heparin) 5,000 unit SQ Q12HCO STACIE Stop: 05/30/18 18:01 Last Admin: 11/29/17 06:27 Dose: 5,000 unit Hydralazine HCl (Hydralazine) 10 mg IVP Q6HR PRN PRN Reason: Hypertension Stop: 05/25/18 11:53 Last Admin: 11/23/17 18:22 Dose: 10 mg Hydrocortisone (Cortaid) 1 appl TP BID STACIE PRN Reason: Protocol Stop: 05/25/18 21:01 Last Admin: 11/29/17 08:03 Dose: 1 appl Lisinopril (Zestril) 40 mg PO DAILY [facility] Stop: 05/25/18 09:01 Last Admin: 11/29/17 08:04 Dose: 40 mg Loratadine (Claritin) 10 mg PO DAILY PRN PRN Reason: Allergy Symptoms Metoprolol Succinate (Toprol Xl) 50 mg PO DAILY [facility] Stop: 05/25/18 09:01 Last Admin: 11/29/17 08:03 Dose: 50 mg Multivitamins/Calcium (Thera M Plus) 1 tab PO DAILY [facility] Stop: 05/24/18 09:01 Last Admin: 11/29/17 08:05 Dose: 1 tab Naloxone HCl (Narcan) 0.4 mg IVP Q2MIN PRN PRN Reason: SEE COMMENTS Stop: 05/23/18 17:41 Ondansetron HCl (Zofran) 4 mg IVP Q8HR PRN; Protocol PRN Reason: Nausea And Vomiting Stop: 05/23/18 17:34 Oxycodone/Acetaminophen (Percocet 5/325) 1 each PO Q6HR PRN PRN Reason: Severe Pain Stop: 05/26/18 16:51 Senna/Docusate Sodium (Senna Plus) 2 each PO BID STACIE PRN Reason: Protocol Stop: 05/23/18 21:01 Last Admin: 11/29/17 08:04 Dose: 2 each Terazosin HCl (Hytrin) 5 mg PO BID [facility] Stop: 05/23/18 21:01 Last Admin: 11/29/17 08:04 Dose: 5 mg Tramadol HCl (Ultram) 50 mg PO Q6HR PRN PRN Reason: Moderate Pain Stop: 05/26/18 16:51 Triamcinolone Acetonide (Kenalog) 1 appl TP BID PRN PRN Reason: Rash Laboratory Tests 11/28/17 11/28/17 11/29/17 04:37 04:37 09:17 Hgb 8.9 L 9.3 L Creatinine 1.30 11/29/17 09:17 Hgb Creatinine 1.32 H - Imaging and Cardiology Chest Xray: report reviewed Echo: report reviewed Cardiac cath: report reviewed - EKG Interpretation EKG results cardiology: other (Telemetry reviewed with average HR previous 12 hours noted to be 75, atrial fibrillation. PVCs noted. Longest pause 2.3 seconds.) - VTE Documentation of Mechanical Device: Intermittent pneumatic compression device Consult Discharge Plan - Plan Referrals: Reilly Martin MD [Primary Care Provider] - 12/05/17 7:40 am ()
[2017-11-29 10:43] LABS: BUN/Creatinine Ratio 33 (6-26); Blood Urea Nitrogen 44 mg/dL (8-23); Calcium 8.7 mg/dL (8.6-10.3); Carbon Dioxide 26 mEq/L (23-29); Chloride 108 mEq/L (98-107); Glucose 144 mg/dL (70-105); Osmolality,Calculated 308 (280-300); Potassium 3.8 mEq/L (3.5-5.1); Sodium 142 mEq/L (136-145); eGFR For African Americans > 60 (> 60); eGFR For Non-African Americans 52 (> 60)
[2017-11-29] MEDS ORDERED: Saline Nasal Spray 44 ML BOTTLE NS PRN (10:49)
[2017-11-30 03:40] LABS: Hematocrit 27.3 % (37.5-50.1); Hemoglobin 8.9 g/dL (12.9-16.9); Mean Corpuscular HGB Conc 32.6 g/dL (31.6-35.5); Mean Corpuscular Hemoglobin 30.2 pg (28.0-33.3); Mean Corpuscular Volume 92.5 fL (83.0-100.0); Mean Platelet Volume 11.2 fL (9.4-12.4); Platelet Count 164 K/mcL (140-400); Red Blood Count 2.95 M/mcL (4.19-5.50); Red Cell Distribution Width 15.1 % (11.5-14.5)
[2017-11-30 04:00] LABS: BUN/Creatinine Ratio 34 (6-26); Blood Urea Nitrogen 41 mg/dL (8-23); Calcium 8.3 mg/dL (8.6-10.3); Carbon Dioxide 26 mEq/L (23-29); Chloride 109 mEq/L (98-107); Glucose 98 mg/dL (70-105); Osmolality,Calculated 302 (280-300); Potassium 3.9 mEq/L (3.5-5.1); Sodium 141 mEq/L (136-145); eGFR For African Americans > 60 (> 60); eGFR For Non-African Americans 57 (> 60)
[2017-11-30] MEDS: *HR* Heparin 5,000 UNIT/ML VIAL SQ SCH ×2 (06:20→18:04)
[2017-11-30] MEDS: Multivit/Ca/Min/Fe/FA 1 TAB TABLET PO SCH (08:04)
[2017-11-30] MEDS: Lisinopril 20 MG TABLET PO SCH (08:04)
[2017-11-30] MEDS: Aspirin Enteric Coated 81 MG Tablet PO SCH (08:04)
[2017-11-30] MEDS: Furosemide 20 MG TABLET PO SCH ×2 (08:04→18:04)
[2017-11-30] MEDS: Metoprolol XL (24 HR) Succ 50 MG TAB.ER.24H PO SCH (08:04)
[2017-11-30] MEDS: Sennosides/Docusate Sodium TABLET PO SCH ×2 (08:04→21:00)
[2017-11-30] MEDS ORDERED: *HR* Heparin 10,000 UNIT/10 ML VIAL ONE ×2 (15:04→15:39)
[2017-11-30] MEDS ORDERED: Heparin 1,000 UNITS/500 mL 500 ML ONE (15:04)
[2017-11-30] MEDS ORDERED: Verapamil 5 MG/2 ML VIAL ONE (15:04)
[2017-11-30] MEDS ORDERED: ISOVUE-370 200 ML INFUS..BTL IV ONE ×2 (15:04→15:46)
[2017-11-30] MEDS ORDERED: Nitroglycerin 1,000 MCG/10 ML VIAL IV ONE ×2 (15:04→16:20)
[2017-11-30] MEDS ORDERED: 0.9 % Sodium Chloride 1,000 ML ONE ×2 (15:04→15:30)
--- NOTE | 2017-11-30 15:23 | Pre-Sedation Evaluation ---
Pre-sedation evaluation - Pre-sedation checklist Date of procedure: 11/30/17 Procedure: PCI Recent Vitals: Last Vital Signs Temp 97.4 F L 11/30/17 11:28 Pulse 74 11/30/17 12:00 Resp 18 11/30/17 11:28 BP 124/70 11/30/17 11:28 Pulse Ox 97 11/30/17 11:28 H&P (including ROS) documented in medical record: Yes Previous reaction to sedatives/anesthetics: No Dietary Status: NPO 6 hours prior to procedure Dentition: No loose teeth or bridges ASA Classification *see protocol: CLASS II-Mild systemic disease Plan of Care: Pt appropriate candidate for procedure/moderate/conscious sedation , Risks/benefits of procedure/sedation discussed w/ patient/family
[2017-11-30] MEDS ORDERED: *HR* Atropine Sulfate 1 MG/10 ML SYRINGE ONE (15:39)
[2017-11-30] MEDS ORDERED: *HR* Midazolam HCl 2 MG/2 ML VIAL ONE (15:41)
[2017-11-30] MEDS ORDERED: *HR* FentaNYL (PF) 100 MCG/2 ML VIAL ONE (15:41)
--- NOTE | 2017-11-30 17:38 | Invasive Diagnostic Lab Proc ---
Name: Moncho Sanchez Date of Study: 11/30/2017 Date: 1935 Ht: 70.9in Medical Record#: [id number] Age: 82 Wt: 264.55lb Gender: Male BSA: 2.37 Order #: [id number] BMI: 37.04 Physicians Procedure Physician: Bobby Andrade MD, [facility] Referring MD: Reilly Martin MD Referring MD: Staff Name Position [facility] In [facility] Monitor 03:21 PM EliuKaela RT (R) Scrub 03:21 PM Solitario Reeves RN Otolaryngologist 03:21 PM Valeria Escamilla RN Otolaryngologist 03:21 PM Indications Indication Non-Stemi Procedures Performed Procedure L HRT ARTERY/VENTRICLE ANGIO PRQ CARD MOE STENT W/ANGIO 1 VSL PRQ CARD MOE STENT W/ANGIO 1 VSL Pre-Procedure Checklist Informed consent is complete signed and on chart. H&P is on chart. ID band is on and ID verified with patient. Patient NPO for procedure The procedure was described for the patient and questions were answered. Blood Pressure: 124/70 ECG is on chart. Rhythm: Atrial Fibrillation Plan of Care Patient will tolerate the procedure without complications. Adequate level of comfort will be maintained. Hemodynamics will remain stable Patient will recover from procedure without complications. Respiratory function will be maintained. Cardiac rhythm will remain stable. Patient temperature will be maintained. Patient and/or family have verbalized understanding of the procedure. Patient Education Chief Complaint/Reason for Test: Cardiac Cath Developmental Category: Geriatric (65+ years) Developmentally Appropriate for Age: Yes Learning Barriers: None Education Needs: Procedure Education Method: Verbal Information Taught: Cardiac Cath Educational Evaluation: Able to repeat information Intravenous Access Time IV Size Location DC'd Fluid/Drip Rate Units RN 03:24 PM 20g 1 1/4" Patent On Arrival Rt Antecubital Valeria Escamilla RN 03:36 PM 20g 1 1/4" Patent On Arrival Lt Wrist 0.9NaCl Valeria Escamilla RN Allergies Penicillins Vital Signs Time BP (mmHg) HR (bpm) O2 Sat. RR (bpm) LOC 03:25 PM 124 / 70 74 97 % 18 5 = Fully awake and oriented or at pre-proc level 03:39 PM / % 5 = Fully awake and oriented or at pre-proc level 03:39 PM / % 4 = Oriented but drowsy 03:55 PM / % 5 = Fully awake and oriented or at pre-proc level 04:10 PM / % 4 = Oriented but drowsy 04:25 PM / % 4 = Oriented but drowsy 04:40 PM / % 4 = Oriented but drowsy 03:39 PM 162 / 87 76 100 % 10 03:44 PM 151 / 89 73 100 % 24 03:49 PM 125 / 67 94 95 % 22 03:54 PM 125 / 70 68 95 % 19 03:59 PM 127 / 77 69 98 % 19 04:04 PM 134 / 74 73 97 % 19 04:09 PM 135 / 73 62 98 % 19 04:14 PM 135 / 78 75 100 % 21 04:19 PM 119 / 70 83 94 % 22 04:24 PM 136 / 75 70 98 % 23 04:29 PM 112 / 63 73 99 % 23 04:34 PM 134 / 71 77 85 % 24 04:39 PM 142 / 88 80 96 % 35 04:44 PM 135 / 74 75 96 % 19 04:49 PM 145 / 77 71 100 % 21 04:54 PM 124 / 82 75 98 % 24 05:00 PM 128 / 84 67 100 % 22 05:04 PM 142 / 83 72 99 % 24 05:09 PM 133 / 82 73 100 % 28 Procedural Medications Time Medication Dose Units Method Given By 03:26 PM Oxygen 2 L/min nasal cannula Valeria Escamilla RN 03:42 PM Oxygen 4 L/min Oxy Mask Valeria Escamilla RN 03:45 PM Versed 1 mg Intravenous Solitario Reeves RN 03:45 PM Fentanyl 25 mcg Intravenous Solitario Reeves RN 03:46 PM Lidocaine 2% 0.5 ml Subcutaneous Bobby Andrade MD, FACC 03:46 PM Versed 1 mg Intravenous Solitario Reeves RN 03:46 PM Fentanyl 25 mcg Intravenous Solitario Reeves RN 03:47 PM Heparin 4000 units Nitroglycerin 200 mcg Verapamil 2.5 mg Intraarterial Bobby Andrade MD, FACC 04:19 PM Nitroglycerin 200 mcg Intracoronary Bobby Andrade MD 04:24 PM Heparin 2500 units Intravenous Solitario Reeves RN 05:02 PM Heparin 2000 units Intravenous Solitario Reeves RN 05:06 PM Nitroglycerin 200 mcg Intracoronary Bobby Andrade MD ASA Classification: CLASS II- Mild systemic disease (i.e. well-controlled diabetes, hypertension, asthma, cigarette smoking) Carlene Score Preprocedure Postprocedure Activity 2- Moves 4 extremities sustained head lift Activity 2- Moves 4 extremities sustained head lift Circulation 2- SBP +/= 20 points of pre-anesthetic level Circulation 2- SBP +/= 20 points of pre-anesthetic level Consciousness 2- Awake and alert oriented x 3 Consciousness 2- Awake and alert oriented x 3 O2 Saturation 2- Able to maintain O2 satruation of 92% on room air O2 Saturation 2- Able to maintain O2 satruation of 92% on room air Respiratory 2- Able to deep breathe and cough well Respiratory 2- Able to deep breathe and cough well Total Score 10 Total Score 10 Contrast Agent: Isovue Diagnostic Contrast: 226 ml Total Contrast: 226 ml Fluoro Dose: 3059 mGy Activated Clotting Time Time Seconds to Clot 04:24 PM 216 05:02 PM 249 Procedure Log Time Note Enter By 03:21 PM 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 at 15:21 [email or web address] 03:21 PM CathStat 03:21 PM Liza Fitzgerald RN Position: Monitor Time in: 15:21 [email or web address] 03:21 PM Kaela Nowak RT (R) Position: Scrub Time in: 15:21 [email or web address] 03:21 PM Solitario Reeves RN Position: Otolaryngologist Time in: 15:21 [email or web address] 03:22 PM Valeria Escamilla RN Position: Otolaryngologist Time in: 15:21 [email or web address] 03:22 PM Patient charges- Angio tray pack, Navilyst 3mm J, Pulse Oximetry and ACIST tubing and transducer [facility] 03:22 PM Case Delayed No [email or web address] 03:22 PM Hair removed from procedure site in procedure lab using clippers. Right wrist & Rt groin prepped with Chloraprep by Valeria Escamilla RN, then patient was draped. Skin intact. [email or web address] 03:22 PM Vanessa paged/called 15:22. [email or web address] 03:22 PM Physican responded and notified patient is ready 15: [email or web address] 03:22 PM Physician arrived 15: [email or web address] 03:22 PM Meet and moi completed [email or web address] 03:22 PM Sign in performed according to hospital policy. [email or web address] 03:22 PM Procedure start 15: [email or web address] 03: PM Time: 15: Oxygen on at 2 L/min per nasal cannula by Valeria Escamilla RN [facility] 03:29 PM ASA Class CLASS II- Mild systemic disease (i.e. well-controlled diabetes, hypertension, asthma, cigarette smoking) [facility] 03:36 PM IV Supplies used: J loop Angio Cath. [facility] 03:38 PM Vitals capture started with the following parameters, Patient=Adult, Interval=5 min, Initial Zkmovfpj=700 mmHg, Deflation Rate=5 mmHg, Cuff placed on Right Arm 03:38 PM Recorded ECG: HR=77 Condition=Condition 1 03:39 PM Recorded ECG: HR=73 Condition=Condition 1 03:39 PM Time: 15:39 Patient comfortable and pain free: Yes [facility] 03[facility] PM HR=76 bpm, ITFB=479/87 mmhg, TcA3=519.0 %, Resp=10 B/min 03:39 PM Time: 15:39LOC: 5 = Fully awake and oriented or at pre-proc level [facility] 03:42 PM Time: 15:42 Oxygen on at 4 L/min per Oxy Mask by Valeria Escamilla RN mirza 03:44 PM HR=73 bpm, FACM=096/89 mmhg, TvB5=823.0 %, Resp=24 B/min 03:45 PM Pressure channel 1 zeroed. 03:45 PM Time: 15:45 Versed 1 mg Intravenous Given by Solitaroi Reeves RN 03:45 PM Time: 15:45 Fentanyl 25 mcg Intravenous Given by Solitario Reeves RN 03:46 PM Clinical Presentation: [facility]I [facility] 03[facility]46 PM Time out performed according to hospital policy [facility] 03[facility]46 PM Time: 15:46 0.5 ml Lidocaine 2% to right radial Subcutaneous Given by Bobby Andrade MD, F[facility] 03[facility]46 PM Time: 15:46 Versed 1 mg Intravenous Given by Solitario Reeves RN 03:46 PM Time: 15:46 Fentanyl 25 mcg Intravenous Given by Solitario Reeves RN 03:47 PM Access obtained by percutaneous puncture. 6Fr 10cm Terumo Clifford sheath placed in right Radial artery. [id number] [facility] 03[facility]47 PM Time: 15:47 Patient given 4,000 units Heparin, 200 mcg Nitroglycerin, and 2.5 mg Verapamil Intraarterial by Bobby Andrade MD, FACC. This is given to reduce risk of vessel spasm and thrombosis. tsoummers 03:47 PM 6Fr RBL 3.5 Convey guide catheter was used to cannulate the PCI vessel successfully. reused? No tsoummers 03:48 PM 0.035 145cm Navilyst 3mmJ wire [id number] tsoummers 03:48 PM J wire removed tsoummers 03:48 PM Recorded Pressure: Ao, HR=74, Condition=Condition 1 (Aorta) Ao 116/51/78 03:49 PM .014 PT Graphix 300cm guide wire across target lesion- successful. reused? No tsoummers 03:49 PM LCA angiography performed in multiple views. tsoummers 03:49 PM HR=94 bpm, KARZ=662/67 mmhg, SpO2=95.0 %, Resp=22 B/min 03:54 PM HR=68 bpm, OVDB=090/70 mmhg, SpO2=95.0 %, Resp=19 B/min 03:55 PM 2.0 mm x 15 mm Emerge Over the wire balloon across target lesion- successful. reused? No tsoummers 03:55 PM Time: 15:39LOC: 4 = Oriented but drowsy tsoummers 03:55 PM Time: 15:39 Patient comfortable and pain free: Yes tsoummers 03:58 PM Guide wire removed tsoummers 03:58 PM Guide wire reinserted. tsoummers 03:59 PM HR=69 bpm, PGXG=641/77 mmhg, SpO2=98.0 %, Resp=19 B/min 03:59 PM Coronary Dominance: right tsoummers 04:02 PM Balloon inflated @ 12 nicole for 19 seconds tsoummers 04:03 PM Balloon inflated @ 12 nicole for 18 seconds tsoummers 04:03 PM Balloon inflated @ 12 nicole for 13 seconds tsoummers 04:04 PM HR=73 bpm, IZNU=725/74 mmhg, SpO2=97.0 %, Resp=19 B/min 04:05 PM Balloon catheter removed intact. tsoummers 04:06 PM Recorded Pressure: Ao, HR=75, Condition=Condition 1 (Aorta) Ao 110/51/76 04:06 PM Lesion found in Mid LAD. Pre Stenosis: 99 Pre DONTE Flow: 3: Complete and Brisk Flow/Perfusion tsoummers 04:[address] Andrade utilizes wire cutters to cut guide wire at this time. tsoumm 04:08 PM 2.25mm x 28mm Synergy drug-eluting stent across target lesion- successful Lot #[id number] 04:09 PM HR=62 bpm, OOMM=891/73 mmhg, SpO2=98.0 %, Resp=19 B/min 04:10 PM Time: 15:55 Patient comfortable and pain free: Yes mm 04:10 PM Time: 15:55LOC: 5 = Fully awake and oriented or at pre-proc level tsmm 04:11 PM Stent removed intact, not deployed tsoumm 04:12 PM 2.25 mm x 15mm NC Trek Rx balloon across target lesion- successful. reused? No mm 04:12 PM Balloon inflated @ 12 nicole for 12 seconds tsoumm 04:12 PM Recorded Pressure: Ao, HR=80, Condition=Condition 1 (Aorta) Ao 110/59/83 04:13 PM Balloon inflated @ 12 nicole for 12 seconds tsoumm 04:13 PM Balloon inflated @ 12 nicole for 12 seconds tsoumm 04:14 PM HR=75 bpm, UQBU=636/78 mmhg, HaL4=203.0 %, Resp=21 B/min 04:14 PM Balloon catheter removed intact. 04:14 PM 2.25mm x 28mm Synergy stent reinserted at this time. tsmm 04:17 PM Stent deployed @ 11 nicole for 15 seconds 04:19 PM Time: 16:19 Nitroglycerin 200 mcg Intracoronary Given by Bobby Andrade MD 04:19 PM HR=83 bpm, OZFP=939/70 mmhg, SpO2=94.0 %, Resp=22 B/min 04:20 PM Recorded Pressure: Ao, HR=77, Condition=Condition 1 (Aorta) Ao 105/52/73 04:21 PM Stent delivery system removed intact. tsmm 04:21 PM Guide wire removed intact. mm 04:22 PM .014 Nada 180cm guide wire across target lesion- successful. reused? No tsoummers 04:24 PM HR=70 bpm, VCHZ=803/75 mmhg, SpO2=98.0 %, Resp=23 B/min 04:24 PM At 16:24 the ACT was 216 seconds. tsoummers 04:24 PM Time: 16:24 Heparin 2500 units Intravenous Given by Solitario Reeves RN tsoummers 04:25 PM 2.25mm x 15mm NC reinserted. tsmmers 04:25 PM Time: 16:10LOC: 4 = Oriented but drowsy tsoummers 04:25 PM Time: 16:10 Patient comfortable and pain free: Yes tsoummers 04:[address] Andrade verbal order, increase 0.9NaCl from 25ml/hr to 100ml/hr tsoummers 04:26 PM Balloon inflated @ 12 nicole for 11 seconds tsoummers 04:27 PM Balloon catheter removed intact. tsoummers 04:28 PM 4.0mm x 16mm Synergy drug-eluting stent across target lesion- successful Lot #[id number] tsoummers 04:29 PM Stent deployed @ 12 nicole for 13 seconds tsoummers 04:29 PM HR=73 bpm, PJKH=756/63 mmhg, SpO2=99.0 %, Resp=23 B/min 04:30 PM Stent delivery system removed intact. tsoummers 04:30 PM Recorded Pressure: Ao, HR=74, Condition=Condition 1 (Aorta) Ao 135/64/95 04:30 PM Lesion found in Proximal Circumflex. Pre Stenosis: 80 Pre DONTE Flow: 3: Complete and Brisk Flow/Perfusion tsoummers 04:32 PM Mid/Distal Left Anterior Descending Coronary Artery and diagonal branches with 99% stenosis. If graft is supplying this area, 0 % stenosis tsoummers 04:33 PM Guide wire removed intact. tsoummers 04:33 PM Circumflex, Obtuse Marginal, Left Posterior Descending, and Left Posterolateral Coronary Arteries with 80 % stenosis. If graft is supplying this area, 0 % stenosis tsoummers 04:34 PM Guide catheter removed intact. tsoummers 04:34 PM 6Fr JR 4 [place] Bright-Tip guide catheter was used to cannulate the PCI vessel successfully. reused? No tsoummers 04:34 PM HR=77 bpm, ZKUB=742/71 mmhg, SpO2=85.0 %, Resp=24 B/min 04:35 PM Lesion found in Mid Circumflex. Pre Stenosis: 70 Pre DONTE Flow: 3: Complete and Brisk Flow/Perfusion tsoummers 04:36 PM RCA angiography performed in multiple views. tsoummers 04:37 PM Nada wire reinserted. tsoummers 04:37 PM Recorded Pressure: Ao, HR=69, Condition=Condition 1 (Aorta) Ao 128/57/88 04:38 PM 2.25 mm x 15 mm NC trek reinserted. tsoummers 04:39 PM HR=80 bpm, KIIP=943/88 mmhg, SpO2=96.0 %, Resp=35 B/min 04:39 PM Lesion found in Mid RCA. Pre Stenosis: 95 Pre DONTE Flow: 3: Complete and Brisk Flow/Perfusion tsoummers 04:40 PM Right Coronary, Right Posterior Descending Arteries with Right Posterolateral and Acute Marginal branches with 95 % stenosis. If graft is supplying this area, 0 % stenosis tsoummers 04:40 PM Time: 16:25 Patient comfortable and pain free: Yes tsoummers 04:40 PM Time: 16:25LOC: 4 = Oriented but drowsy tsoummers 04:41 PM Guide wire removed intact. tsoummers 04:41 PM Balloon catheter removed intact. tsoummers 04:42 PM .014 ChoICE PT Extra Support 300cm guide wire across target lesion- successful. reused? No tsoummers 04:43 PM 2.0 mm x 15mm OTW emerge reinserted. tsoummers 04:44 PM HR=75 bpm, IYYF=539/74 mmhg, SpO2=96.0 %, Resp=19 B/min 04:45 PM Balloon catheter removed intact. tsoummers 04:47 PM 1.2 mm x 12 mm Academic Assistant OTW balloon across target lesion- unsuccessful. reused? No tsoummers 04:49 PM HR=71 bpm, BCVB=444/77 mmhg, LzY3=055.0 %, Resp=21 B/min 04:50 PM guide wire removed tsoummers 04:51 PM .014 Fielder XT 300cm guide wire across target lesion- successful. reused? No tsoummers 04:54 PM HR=75 bpm, WIDK=570/82 mmhg, SpO2=98.0 %, Resp=24 B/min 04:55 PM Time: 16:40LOC: 4 = Oriented but drowsy tsoummers 04:55 PM Time: 16:40 Patient comfortable and pain free: Yes [facility] 04:58 PM Guide wire removed intact. [facility] 05:00 PM HR=67 bpm, FOJL=607/84 mmhg, LgB3=580.0 %, Resp=22 B/min 05:00 PM Choice PT Extra support guide wire reinserted [facility] 05:02 PM At 17:02 the ACT was 249 seconds. [facility] 05:02 PM Time: 17:02 Heparin 2000 units Intravenous Given by Solitario Reeves RN [facility] 05:04 PM HR=72 bpm, QWZQ=058/83 mmhg, SpO2=99.0 %, Resp=24 B/min 05:06 PM Time: 17:06 Nitroglycerin 200 mcg Intracoronary Given by Bobby Andrade MD [facility] 05:07 PM Guide wire removed intact. [facility] 05:07 PM Balloon catheter removed intact. Not inflated, unable to cross lesion. [facility] 05:07 PM Guide catheter removed intact. [facility] 05:08 PM unable to cross lesion. [facility] 05:09 PM Procedure completed at 17:09 [facility] 05:09 PM HR=73 bpm, CXLA=388/82 mmhg, WrP9=096.0 %, Resp=28 B/min 05:09 PM Arterial sheath pulled, Vasc Band closure device used and was Successful S/N. [facility] 05:09 PM 10 ml air in Vasc Band. [facility] 05:[facility] PM Did you address DONTE flow and Dominance? Yes [facility] 05:10 PM Sign out completed: Radiation Dose 3059.44 mGy Fluoro Time: 33.1 Isovue 370 - 200ml contrast 226 ml given by Bobby Andrade MD, [facility]. Complications: NoneCardiac Rehab Consult needed: YesConfirmed administered medications: Yes [facility] 05:10 PM Isovue 370 - 200ml,2 Bottle(s) used. [facility] 05:10 PM Estimated Blood Loss: less than 20cc [facility] 05:10 PM Post ECG Atrial Fibrillation [facility] 05:10 PM Post Blood Pressure 133/82 [facility] 05:10 PM Information taught PCI, Cardiac Cath, and Vasc Band [facility] 05:11 PM Education needs Procedure, Plan of Care, and Responsibilities of Patient in Care [facility] 05:11 PM Learning barriers :None [facility] 05:11 PM Education Methods Verbal [facility] 05:11 PM Education evaluation Able to repeat information [facility] 05:11 PM Site status No bleeding/hematoma - Rt Wrist as reported by Kaela Nowak RT (R) at 17:11 [facility] 05:11 PM Family placed in consult room. [facility] 05:11 PM Fluoro Time: 33.1 [facility] 05:11 PM Isovue 370 - 200ml contrast 226 ml given by Lupe. [facility] 05:12 PM Radiation Dose 3059.44 mGy [facility] 05:12 PM What is the NYHA Class? Class 3 [facility] 05:16 PM Plavix, Effient or Brilinta given No. 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 17:19 [facility] 05:19 PM Patient out of room: 17:19 [facility] 05:19 PM Complications: None [facility] Complications Complication None Hemodynamics Pressures Site Systolic/A Wave Diastolic/V Wave Mean AO 116 51 78 AO 110 51 76 AO 110 59 83 AO 105 52 73 AO 135 64 95 AO 128 57 88 Post Procedure Information Blood Pressure: 133/82 mmHg Rhythm: Atrial Fibrillation Post procedural instructions were given Closure Device Time Device Success/Fail 11/30/2017 5:09:00 PM Mechanical Compression Successful Site Checks Time Location Status Staff Sheath In? Note 05:11 PM Rt Wrist No bleeding/hematoma Kaela Nowak RT (R) Pulses Time Site Pre-Procedure Post-Procedure Note 11/30/2017 3:25:00 PM Bilateral DP & PT 2+ 11/30/2017 3:25:00 PM Bilateral radial 2+ Updated by Liza Fitzgerald RN on 11/30/2017 5:29:55 PM electronically signed on 11/30/2017 5:30:31 PM with status of Final
--- NOTE | 2017-11-30 17:38 | Invasive Diagnostic Lab Proc ---
Name: Moncho Sanchez Date of Study: 11/30/2017 Date: 1935 Ht: 70.9in Medical Record#: [id number] Age: 82 Wt: 264.55lb Gender: Male BSA: 2.37 Order #: [id number] BMI: 37.04 Physicians Procedure Physician: Bobby Andrade MD, [facility] Referring MD: Reilly Martin MD Referring MD: Staff Name Position [facility] Monitor 03:21 PM EliuKaela RT (R) Scrub 03:21 PM Solitario Reeves RN Nuclear Medicine Technician 03:21 PM Valeria Escamilla RN Nuclear Medicine Technician 03:21 PM Indications Indication Non-Stemi Procedures Performed Procedure PRQ CARD MOE STENT W/ANGIO 1 VSL PRQ CARD MOE STENT W/ANGIO 1 VSL CORONARY ARTERY ANGIO S&I Pre-Procedure Checklist Informed consent is complete signed and on chart. H&P is on chart. ID band is on and ID verified with patient. Patient NPO for procedure The procedure was described for the patient and questions were answered. Blood Pressure: 124/70 ECG is on chart. Rhythm: Atrial Fibrillation Plan of Care Patient will tolerate the procedure without complications. Adequate level of comfort will be maintained. Hemodynamics will remain stable Patient will recover from procedure without complications. Respiratory function will be maintained. Cardiac rhythm will remain stable. Patient temperature will be maintained. Patient and/or family have verbalized understanding of the procedure. Patient Education Chief Complaint/Reason for Test: Cardiac Cath Developmental Category: Geriatric (65+ years) Developmentally Appropriate for Age: Yes Learning Barriers: None Education Needs: Procedure Education Method: Verbal Information Taught: Cardiac Cath Educational Evaluation: Able to repeat information Intravenous Access Time IV Size Location DC'd Fluid/Drip Rate Units RN 03:24 PM 20g 1 1/4" Patent On Arrival Rt Antecubital Valeria Escamilla RN 03:36 PM 20g 1 1/4" Patent On Arrival Lt Wrist 0.9NaCl Valeria Escamilla RN Allergies Penicillins Vital Signs Time BP (mmHg) HR (bpm) O2 Sat. RR (bpm) LOC 03:25 PM 124 / 70 74 97 % 18 5 = Fully awake and oriented or at pre-proc level 03:39 PM / % 5 = Fully awake and oriented or at pre-proc level 03:39 PM / % 4 = Oriented but drowsy 03:55 PM / % 5 = Fully awake and oriented or at pre-proc level 04:10 PM / % 4 = Oriented but drowsy 04:25 PM / % 4 = Oriented but drowsy 04:40 PM / % 4 = Oriented but drowsy 03:39 PM 162 / 87 76 100 % 10 03:44 PM 151 / 89 73 100 % 24 03:49 PM 125 / 67 94 95 % 22 03:54 PM 125 / 70 68 95 % 19 03:59 PM 127 / 77 69 98 % 19 04:04 PM 134 / 74 73 97 % 19 04:09 PM 135 / 73 62 98 % 19 04:14 PM 135 / 78 75 100 % 21 04:19 PM 119 / 70 83 94 % 22 04:24 PM 136 / 75 70 98 % 23 04:29 PM 112 / 63 73 99 % 23 04:34 PM 134 / 71 77 85 % 24 04:39 PM 142 / 88 80 96 % 35 04:44 PM 135 / 74 75 96 % 19 04:49 PM 145 / 77 71 100 % 21 04:54 PM 124 / 82 75 98 % 24 05:00 PM 128 / 84 67 100 % 22 05:04 PM 142 / 83 72 99 % 24 05:09 PM 133 / 82 73 100 % 28 Procedural Medications Time Medication Dose Units Method Given By 03:26 PM Oxygen 2 L/min nasal cannula Valeria Escamilla RN 03:42 PM Oxygen 4 L/min Oxy Mask Valeria Escamilla RN 03:45 PM Versed 1 mg Intravenous Solitario Reeves RN 03:45 PM Fentanyl 25 mcg Intravenous Solitario Reeves RN 03:46 PM Lidocaine 2% 0.5 ml Subcutaneous Bobby Andrade MD, FACC 03:46 PM Versed 1 mg Intravenous Solitario Reeves RN 03:46 PM Fentanyl 25 mcg Intravenous Solitario Reeves RN 03:47 PM Heparin 4000 units Nitroglycerin 200 mcg Verapamil 2.5 mg Intraarterial Bobby Andrade MD, FACC 04:19 PM Nitroglycerin 200 mcg Intracoronary Bobby Andrade MD 04:24 PM Heparin 2500 units Intravenous Solitario Reeves RN 05:02 PM Heparin 2000 units Intravenous Solitario Reeves RN 05:06 PM Nitroglycerin 200 mcg Intracoronary Bobby Andrade MD ASA Classification: CLASS II- Mild systemic disease (i.e. well-controlled diabetes, hypertension, asthma, cigarette smoking) Carlene Score Preprocedure Postprocedure Activity 2- Moves 4 extremities sustained head lift Activity 2- Moves 4 extremities sustained head lift Circulation 2- SBP +/= 20 points of pre-anesthetic level Circulation 2- SBP +/= 20 points of pre-anesthetic level Consciousness 2- Awake and alert oriented x 3 Consciousness 2- Awake and alert oriented x 3 O2 Saturation 2- Able to maintain O2 satruation of 92% on room air O2 Saturation 2- Able to maintain O2 satruation of 92% on room air Respiratory 2- Able to deep breathe and cough well Respiratory 2- Able to deep breathe and cough well Total Score 10 Total Score 10 Contrast Agent: Isovue Diagnostic Contrast: 226 ml Total Contrast: 226 ml Fluoro Dose: 3059 mGy Activated Clotting Time Time Seconds to Clot 04:24 PM 216 05:02 PM 249 Procedure Log Time Note Enter By 03:21 PM 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 at 15:21 [email or web address] 03:21 PM CathStat 03:21 PM Liza Fitzgerald RN Position: Monitor Time in: 15:21 [email or web address] 03:21 PM Kaela Nowak RT (R) Position: Scrub Time in: 15:21 [email or web address] 03:21 PM Solitario Reeves RN Position: Nuclear Medicine Technician Time in: 15:21 [email or web address] 03:22 PM Valeria Escamilla RN Position: Nuclear Medicine Technician Time in: 15:21 [email or web address] 03:22 PM Patient charges- Angio tray pack, Navilyst 3mm J, Pulse Oximetry and [facility] 03[facility]22 PM Case Delayed No [email or web address] 03:22 PM Hair removed from procedure site in procedure lab using clippers. Right wrist & Rt groin prepped with Chloraprep by Valeria Escamilla RN, then patient was draped. Skin intact. [email or web address] 03:22 PM Vanessa paged/called 15:22. lparsley 03:22 PM Physican responded and notified patient is ready 15: [email or web address] 03:22 PM Physician arrived 15: [email or web address] 03:22 PM Meet and moi completed [email or web address] 03:22 PM Sign in performed according to hospital policy. lparsley 03:22 PM Procedure start 15: lparsley 03: PM Time: 15: Oxygen on at 2 L/min per nasal cannula by Valeria Esc[facility]illa RN [facility] 03:29 PM ASA Class CLASS II- Mild systemic disease (i.e. well-controlled diabetes, hypertension, asthma, cigarette smoking) [facility] 03:36 PM IV Supplies used: J loop Angio Cath. [facility] 03:38 PM Vitals capture started with the following parameters, Patient=Adult, Interval=5 min, Initial Jcrrlkcd=567 mmHg, Deflation Rate=5 mmHg, Cuff placed on Right Arm 03:38 PM Recorded ECG: HR=77 Condition=Condition 1 03:39 PM Recorded ECG: HR=73 Condition=Condition 1 03:39 PM Time: 15:39 Patient comfortable and pain free: Yes [facility] HR=76 bpm, KSUG=440/87 mmhg, VuC1=145.0 %, Resp=10 B/min 03:39 PM Time: 15:39LOC: 5 = Fully awake and oriented or at pre-proc level [facility] 03[facility]42 PM Time: 15:42 Oxygen on at 4 L/min per Oxy Mask by Valeria Escamilla RN mirza 03:44 PM HR=73 bpm, QXVM=429/89 mmhg, MzL8=332.0 %, Resp=24 B/min 03:45 PM Pressure channel 1 zeroed. 03:45 PM Time: 15:45 Versed 1 mg Intravenous Given by Soliatrio Reeves RN 03:45 PM Time: 15:45 Fentanyl 25 mcg Intravenous Given by Solitario Reeves RN 03:46 PM Clinical Presentation: [facility] PM Time out performed according to hospital policy [facility] 03:46 PM Time: 15:46 0.5 ml Lidocaine 2% to right radial Subcutaneous Given by Bobby Andrade MD, FACC [facility] 03:46 PM Time: 15:46 Versed 1 mg Intravenous Given by Solitario Reeves RN 03:46 PM Time: 15:46 Fentanyl 25 mcg Intravenous Given by Solitario Reeves RN 03:47 PM Access obtained by percutaneous puncture. 6Fr 10cm [place] sheath placed in right Radial artery. [id number] [facility] 03:47 PM Time: 15:47 Patient given 4,000 units Heparin, 200 mcg Nitroglycerin, and 2.5 mg Verapamil Intraarterial by Bobby Andrade MD, FACC. This is given to reduce risk of vessel spasm and thrombosis. tsoummers 03:47 PM 6Fr RBL 3.5 Convey guide catheter was used to cannulate the PCI vessel successfully. reused? No tsoummers 03:48 PM 0.035 145cm Navilyst 3mmJ wire [id number] tsoummers 03:48 PM J wire removed tsoummers 03:48 PM Recorded Pressure: Ao, HR=74, Condition=Condition 1 (Aorta) Ao 116/51/78 03:49 PM .014 PT Graphix 300cm guide wire across target lesion- successful. reused? No tsoummers 03:49 PM LCA angiography performed in multiple views. tsoummers 03:49 PM HR=94 bpm, SOJG=024/67 mmhg, SpO2=95.0 %, Resp=22 B/min 03:54 PM HR=68 bpm, BRRT=947/70 mmhg, SpO2=95.0 %, Resp=19 B/min 03:55 PM 2.0 mm x 15 mm Emerge Over the wire balloon across target lesion- successful. reused? No tsoummers 03:55 PM Time: 15:39LOC: 4 = Oriented but drowsy tsoummers 03:55 PM Time: 15:39 Patient comfortable and pain free: Yes tsoummers 03:58 PM Guide wire removed tsoummers 03:58 PM Guide wire reinserted. tsoummers 03:59 PM HR=69 bpm, DTTZ=285/77 mmhg, SpO2=98.0 %, Resp=19 B/min 03:59 PM Coronary Dominance: right tsoummers 04:02 PM Balloon inflated @ 12 nicole for 19 seconds tsoummers 04:03 PM Balloon inflated @ 12 nicole for 18 seconds tsoummers 04:03 PM Balloon inflated @ 12 nicole for 13 seconds tsoummers 04:04 PM HR=73 bpm, GPUT=422/74 mmhg, SpO2=97.0 %, Resp=19 B/min 04:05 PM Balloon catheter removed intact. tsoummers 04:06 PM Recorded Pressure: Ao, HR=75, Condition=Condition 1 (Aorta) Ao 110/51/76 04:06 PM Lesion found in Mid LAD. Pre Stenosis: 99 Pre DONTE Flow: 3: Complete and Brisk Flow/Perfusion tsoummers 04:[address] Andrade utilizes wire cutters to cut guide wire at this time. tsoumm 04:08 PM 2.25mm x 28mm Synergy drug-eluting stent across target lesion- successful Lot #[id number] 04:09 PM HR=62 bpm, ZZAH=237/73 mmhg, SpO2=98.0 %, Resp=19 B/min 04:10 PM Time: 15:55 Patient comfortable and pain free: Yes mm 04:10 PM Time: 15:55LOC: 5 = Fully awake and oriented or at pre-proc level tsmm 04:11 PM Stent removed intact, not deployed tsoumm 04:12 PM 2.25 mm x 15mm NC Trek Rx balloon across target lesion- successful. reused? No mm 04:12 PM Balloon inflated @ 12 nicole for 12 seconds tsoumm 04:12 PM Recorded Pressure: Ao, HR=80, Condition=Condition 1 (Aorta) Ao 110/59/83 04:13 PM Balloon inflated @ 12 nicole for 12 seconds tsoumm 04:13 PM Balloon inflated @ 12 nicole for 12 seconds tsoumm 04:14 PM HR=75 bpm, HETV=570/78 mmhg, PrZ2=507.0 %, Resp=21 B/min 04:14 PM Balloon catheter removed intact. 04:14 PM 2.25mm x 28mm Synergy stent reinserted at this time. tsmm 04:17 PM Stent deployed @ 11 nicloe for 15 seconds 04:19 PM Time: 16:19 Nitroglycerin 200 mcg Intracoronary Given by Bobby Andrade MD 04:19 PM HR=83 bpm, IGSZ=881/70 mmhg, SpO2=94.0 %, Resp=22 B/min 04:20 PM Recorded Pressure: Ao, HR=77, Condition=Condition 1 (Aorta) Ao 105/52/73 04:21 PM Stent delivery system removed intact. tsmm 04:21 PM Guide wire removed intact. mm 04:22 PM .014 [place] 180cm guide wire across target lesion- successful. reused? No tsoummers 04:24 PM HR=70 bpm, LJSN=886/75 mmhg, SpO2=98.0 %, Resp=23 B/min 04:24 PM At 16:24 the ACT was 216 seconds. tsoummers 04:24 PM Time: 16:24 Heparin 2500 units Intravenous Given by Solitario Reeves RN tsoummers 04:25 PM 2.25mm x 15mm NC reinserted. tsmmers 04:25 PM Time: 16:10LOC: 4 = Oriented but drowsy tsoummers 04:25 PM Time: 16:10 Patient comfortable and pain free: Yes tsoummers 04:[address] Andrade verbal order, increase 0.9NaCl from 25ml/hr to 100ml/hr tsoummers 04:26 PM Balloon inflated @ 12 nicole for 11 seconds tsoummers 04:27 PM Balloon catheter removed intact. tsoummers 04:28 PM 4.0mm x 16mm Synergy drug-eluting stent across target lesion- successful Lot #[id number] tsoummers 04:29 PM Stent deployed @ 12 nicole for 13 seconds tsoummers 04:29 PM HR=73 bpm, XRWV=552/63 mmhg, SpO2=99.0 %, Resp=23 B/min 04:30 PM Stent delivery system removed intact. tsoummers 04:30 PM Recorded Pressure: Ao, HR=74, Condition=Condition 1 (Aorta) Ao 135/64/95 04:30 PM Lesion found in Proximal Circumflex. Pre Stenosis: 80 Pre DONTE Flow: 3: Complete and Brisk Flow/Perfusion tsoummers 04:32 PM Mid/Distal Left Anterior Descending Coronary Artery and diagonal branches with 99% stenosis. If graft is supplying this area, 0 % stenosis tsoummers 04:33 PM Guide wire removed intact. tsoummers 04:33 PM Circumflex, Obtuse Marginal, Left Posterior Descending, and Left Posterolateral Coronary Arteries with 80 % stenosis. If graft is supplying this area, 0 % stenosis tsoummers 04:34 PM Guide catheter removed intact. tsoummers 04:34 PM 6Fr JR 4 [employer] Bright-Tip guide catheter was used to cannulate the PCI vessel successfully. reused? No tsoummers 04:34 PM HR=77 bpm, EHYN=287/71 mmhg, SpO2=85.0 %, Resp=24 B/min 04:35 PM Lesion found in Mid Circumflex. Pre Stenosis: 70 Pre DONTE Flow: 3: Complete and Brisk Flow/Perfusion tsoummers 04:36 PM RCA angiography performed in multiple views. tsoummers 04:37 PM [place] wire reinserted. tsoummers 04:37 PM Recorded Pressure: Ao, HR=69, Condition=Condition 1 (Aorta) Ao 128/57/88 04:38 PM 2.25 mm x 15 mm NC trek reinserted. tsoummers 04:39 PM HR=80 bpm, FRIN=684/88 mmhg, SpO2=96.0 %, Resp=35 B/min 04:39 PM Lesion found in Mid RCA. Pre Stenosis: 95 Pre DONTE Flow: 3: Complete and Brisk Flow/Perfusion tsoummers 04:40 PM Right Coronary, Right Posterior Descending Arteries with Right Posterolateral and Acute Marginal branches with 95 % stenosis. If graft is supplying this area, 0 % stenosis tsoummers 04:40 PM Time: 16:25 Patient comfortable and pain free: Yes tsoummers 04:40 PM Time: 16:25LOC: 4 = Oriented but drowsy tsoummers 04:41 PM Guide wire removed intact. tsoummers 04:41 PM Balloon catheter removed intact. tsoummers 04:42 PM .014 ChoICE PT Extra Support 300cm guide wire across target lesion- successful. reused? No tsoummers 04:43 PM 2.0 mm x 15mm OTW emerge reinserted. tsoummers 04:44 PM HR=75 bpm, RIQW=024/74 mmhg, SpO2=96.0 %, Resp=19 B/min 04:45 PM Balloon catheter removed intact. tsoummers 04:47 PM 1.2 mm x 12 mm Core Winding Operator OTW balloon across target lesion- unsuccessful. reused? No tsoummers 04:49 PM HR=71 bpm, BKVP=913/77 mmhg, KdJ5=320.0 %, Resp=21 B/min 04:50 PM guide wire removed tsoummers 04:51 PM .014 Fielder XT 300cm guide wire across target lesion- successful. reused? No tsoummers 04:54 PM HR=75 bpm, HDII=704/82 mmhg, SpO2=98.0 %, Resp=24 B/min 04:55 PM Time: 16:40LOC: 4 = Oriented but drowsy tsoummers 04:55 PM Time: 16:40 Patient comfortable and pain free: Yes [facility] 04:58 PM Guide wire removed intact. [facility] 05:00 PM HR=67 bpm, PUXH=220/84 mmhg, InP3=318.0 %, Resp=22 B/min 05:00 PM Choice PT Extra support guide wire reinserted [facility] 05:02 PM At 17:02 the ACT was 249 seconds. [facility] 05:02 PM Time: 17:02 Heparin 2000 units Intravenous Given by Solitario Reeves RN [facility] 05:04 PM HR=72 bpm, WEKC=513/83 mmhg, SpO2=99.0 %, Resp=24 B/min 05:06 PM Time: 17:06 Nitroglycerin 200 mcg Intracoronary Given by Bobby Andrade MD [facility] 05:07 PM Guide wire removed intact. [facility] 05:07 PM Balloon catheter removed intact. Not inflated, unable to cross lesion. [facility] 05:07 PM Guide catheter removed intact. [facility] 05:08 PM unable to cross lesion. [facility] 05:09 PM Procedure completed at 17:09 [facility] 05:09 PM HR=73 bpm, IAKL=116/82 mmhg, ElD7=749.0 %, Resp=28 B/min 05:09 PM Arterial sheath pulled, Vasc Band closure device used and was Successful S/N. [facility] 05:09 PM 10 ml air in Vasc Band. [facility] 05:09 PM Did you address DONTE flow and Dominance? Yes [facility] 05:10 PM Sign out completed: Radiation Dose 3059.44 mGy Fluoro Time: 33.1 Isovue 370 - 200ml contrast 226 ml given by Bobby Andrade MD, [facility]. Complications: NoneCardiac Rehab Consult needed: YesConfirmed administered medications: Yes [facility] 05:10 PM Isovue 370 - 200ml,2 Bottle(s) used. [facility] 05:10 PM Estimated Blood Loss: less than 20cc [facility] 05:10 PM Post ECG Atrial Fibrillation [facility] 05:10 PM Post Blood Pressure 133/82 [facility] 05:10 PM Information taught PCI, Cardiac Cath, and Vasc Band [facility] 05:11 PM Education needs Procedure, Plan of Care, and Responsibilities of Patient in Care [facility] 05:11 PM Learning barriers :None [facility] 05:11 PM Education Methods Verbal [facility] 05:11 PM Education evaluation Able to repeat information [facility] 05:11 PM Site status No bleeding/hematoma - Rt Wrist as reported by Kaela Nowak RT (R) at 17:11 [facility] 05:11 PM Family placed in consult room. [facility] 05:11 PM Fluoro Time: 33.1 [facility] 05:11 PM Isovue 370 - 200ml contrast 226 ml given by Lupe. [facility] 05:12 PM Radiation Dose 3059.44 mGy [facility] 05:12 PM What is the NYHA Class? Class 3 [facility] 05:16 PM Plavix, Effient or Brilinta given No. Pt received 300mg Plavix PROCESSING MGR at 1045 per [employer] documentation [facility] 05:19 PM Report given to Carmen MONACO Pt taken to Room #11. 17:19 [facility] 05:19 PM Patient out of room: 17:19 [facility] 05:19 PM Complications: None [facility] Complications Complication None Hemodynamics Pressures Site Systolic/A Wave Diastolic/V Wave Mean AO 116 51 78 AO 110 51 76 AO 110 59 83 AO 105 52 73 AO 135 64 95 AO 128 57 88 Post Procedure Information Blood Pressure: 133/82 mmHg Rhythm: Atrial Fibrillation Post procedural instructions were given Closure Device Time Device Success/Fail 11/30/2017 5:09:00 PM Mechanical Compression Successful Site Checks Time Location Status Staff Sheath In? Note 05:11 PM Rt Wrist No bleeding/hematoma Kaela Nowak RT (R) Pulses Time Site Pre-Procedure Post-Procedure Note 11/30/2017 3:25:00 PM Bilateral DP & PT 2+ 11/30/2017 3:25:00 PM Bilateral radial 2+ Updated by Liza Fitzgerald RN on 11/30/2017 5:32:39 PM electronically signed on 11/30/2017 5:33:09 PM with status of Final
[2017-12-01 04:57] LABS: Hemoglobin 8.8 g/dL (12.9-16.9); Mean Corpuscular HGB Conc 31.4 g/dL (31.6-35.5); Mean Corpuscular Hemoglobin 29.6 pg (28.0-33.3); Mean Corpuscular Volume 94.3 fL (83.0-100.0); Mean Platelet Volume 11.1 fL (9.4-12.4); Platelet Count 171 K/mcL (140-400); Red Blood Count 2.97 M/mcL (4.19-5.50)
[2017-12-01] MEDS: *HR* Enoxaparin 120 MG/0.8 ML SYRINGE SQ SCH ×2 (04:59→17:25)
[2017-12-01 05:18] LABS: BUN/Creatinine Ratio 31 (6-26); Blood Urea Nitrogen 36 mg/dL (8-23); Calcium 8.2 mg/dL (8.6-10.3); Carbon Dioxide 28 mEq/L (23-29); Chloride 106 mEq/L (98-107); Glucose 85 mg/dL (70-105); Osmolality,Calculated 296 (280-300); Sodium 139 mEq/L (136-145); eGFR For African Americans > 60 (> 60); eGFR For Non-African Americans > 60 (> 60)
[2017-12-01] MEDS: Lisinopril 20 MG TABLET PO SCH (08:02)
[2017-12-01] MEDS: Multivit/Ca/Min/Fe/FA 1 TAB TABLET PO SCH (08:02)
[2017-12-01] MEDS: Metoprolol XL (24 HR) Succ 50 MG TAB.ER.24H PO SCH (08:02)
[2017-12-01] MEDS: Furosemide 20 MG TABLET PO SCH ×2 (08:02→17:26)
[2017-12-01] MEDS: Aspirin Enteric Coated 81 MG Tablet PO SCH (08:02)
[2017-12-01] MEDS: Sennosides/Docusate Sodium TABLET PO SCH ×2 (08:02→21:03)
[2017-12-01] MEDS ORDERED: *HR* Warfarin 5 MG TABLET PO ONE (11:44)
--- NOTE | 2017-12-01 12:43 | Cardiology Progress Note ---
Date of Encounter: 12/01/17 Time of Encounter: 10:00 Assessment and Plan (1) Atrial fibrillation Current Visit: Yes Status: Chronic Per Cardiology: -Suspected new onset A. fib. -Average heart rate on telemetry 74 for the past 12 hours - EF on echo 35-40%. -On Toprol-XL 50 mg by mouth daily. Currently rate controlled. -Efjit1lanv score 4 (age, HTN, vascular disease). On lovenox, per 's recommendations was started on coumadin. -Will continue to monitor. Qualifiers: Atrial fibrillation type: chronic Qualified Code(s): I48.2 - Chronic atrial fibrillation (2) NSTEMI (non-ST elevated myocardial infarction) Current Visit: Yes Status: Acute Per Cardiology: -Presented initially with mild troponin elevation with peak 0.11 in setting of atrial fibrillation and CHF. -Suspected demand ischemia, however EF noted to be 35-40% on echo. -Cath now shows severe 3 vessel CAD. -CP free. -Patient was seen and evaluated by CT surgery. However, at this point patient has elected for high risk staged PCI. -Staged PCI yesteday. Denies chest pain. Right radial access site without hematoma or ecchymosis. MOE placed. Educated patient on importance of dual anti- platelet therapy uninterrupted for at least one year, unless otherwise directed by cardiology. Patient states understanding. -Will continue to monitor. (3) CAD (coronary artery disease) Current Visit: Yes Status: Acute Per Cardiology: -C showed: Lesion Findings/Interventions * Left Main Coronary Artery The LMCA is angiographically free of disease. * Left Anterior Descending There is a 50% stenosis in the Proximal LAD. There is a 90% stenosis in the Mid LAD. * Circumflex There is a 90% stenosis in the Proximal Circumflex. There is a 60% stenosis in the Mid Circumflex. * Right Coronary Artery There is a 99% stenosis in the Mid RCA. Additional Findings: Right Ilio-Femoral * 90% stenosis in the right iliac -CT surgery evaluated -On aspirin, PACHECO inhibitor, beta evangelista, statin. LFTs stable. -At this time, patient has elected for high risk staged PCI, performed yesterday. -Will continue to monitor. Qualifiers: Coronary Disease-Associated Artery/Lesion type: [place] artery [place] vs. transplanted heart: [place] heart Associated angina: without angina Qualified Code(s): I25.10 - Atherosclerotic heart disease of [place] coronary artery without angina pectoris (4) Hematoma Current Visit: Yes Status: Acute Per Cardiology: -H/H down from 14.4 to 8.7. Now hemoglobin today 8.9. -BP and HR remain stable. -Vascular report shows negative for pseudoaneurysm. - Low suspicion for RP bleed, however can consider CT if deemed appropriate. -reports is able to walk to bathroom now with assistance. -Today, large area of ecchymosis noted, however no hematoma appreciated on exam today. -Will continue to monitor. (5) Cardiomyopathy Current Visit: Yes Status: Acute Per Cardiology: -MUGA resulted, EF 44.3%. -On lasix po daily. -Pedal edema improved today. -on 1.5 L fluid restriction and strict I and O. -CHF education reinforced with patient and family. -Recommend KAITY hose. Continue with daily weights. -Will continue to monitor. Qualifiers: Cardiomyopathy type: ischemic Qualified Code(s): I25.5 - Ischemic cardiomyopathy (6) Sleep apnea Current Visit: Yes Status: Acute Per cardiology: -Suspected sleep apnea. Snores, atrial fibrillation. -Patient has been wearing O2 at night at 2LPM per NC. -Will check overnight pulse ox for O2/CPAP qualification. Qualifiers: Sleep apnea type: unspecified type Qualified Code(s): G47.30 - Sleep apnea , unspecified Discussion w patient/family: The assessment and plan as outlined above was discussed with the patient and family who expressed understanding and agreement. All questions were answered. Thank you for involving us in the care of your patient. Please call with any questions. Discussed and reviewed with . Subjective Principal diagnosis: a.fib, cardiomyopathy, cad Interval history: Patient denies chest pain this morning. States is able to walk to the bathroom with assistance. Patient reports leg pain is improved today. Denies issues with right radial access site. Objective Vital Signs, Last 4 Hours Temp Pulse Resp BP Pulse Ox 12/01/17 11:18 98.6 F 64 16 105/50 90 General: Conversant, No Apparent Distress HEENT: Atraumatic, Normocephaly, Mucus Membranes Moist Neck: No JVD, Normal carotid pulses Cardiac: Normal S1 and S2, No Murmur, Other (Irregularly irregular) Lungs: Normal Breath Sounds, No Wheeze, Rales, Rhonchi Neuro: Alert and responsive, No focal deficits noted Abdomen: Soft, Non-Tender Skin: No rashes noted on visualized skin, Other (Right groin access site with large area of ecchymosis, no hematoma. Right radial access site without hematoma or ecchymosis. ) Musculoskeletal: No Chest Wall Tenderness Extremities: No Clubbing, No Cyanosis, No Edema, Normal Pulses Results 12/01/17 04:19 12/01/17 04:19 Lab Results Active Medications Aspirin (Aspirin Ec) 81 mg PO DAILY STACIE Stop: 05/24/18 09:01 Last Admin: 12/01/17 08:02 Dose: 81 mg Atorvastatin Calcium (Lipitor) 80 mg PO HS STACIE Stop: 05/26/18 21:01 Last Admin: 11/30/17 21:01 Dose: 80 mg Chlordiazepoxide HCl (Librium) 5 mg PO TID PRN PRN Reason: Anxiety Stop: 05/23/18 17:30 Last Admin: 11/29/17 08:05 Dose: 5 mg Clopidogrel Bisulfate (Plavix) 75 mg PO DAILY STACIE Stop: 05/31/18 09:01 Last Admin: 12/01/17 08:02 Dose: 75 mg Enoxaparin Sodium (Lovenox) 120 mg 1 mg/kg (120 mg) SQ Q12HR STACIE PRN Reason: Protocol Stop: 06/02/18 06:01 Last Admin: 12/01/17 04:59 Dose: 120 mg Fluticasone Propionate (Flonase) 100 mcg NS DAILY PRN; Protocol PRN Reason: Allergy Symptoms Stop: 05/23/18 17:30 Furosemide (Lasix) 20 mg PO BIDDIURETIC STACIE Stop: 05/31/18 17:01 Last Admin: 12/01/17 08:02 Dose: 20 mg Hydralazine HCl (Hydralazine) 10 mg IVP Q6HR PRN PRN Reason: Hypertension Stop: 05/25/18 11:53 Last Admin: 11/23/17 18:22 Dose: 10 mg Hydrocortisone (Cortaid) 1 appl TP BID STACIE PRN Reason: Protocol Stop: 05/25/18 21:01 Last Admin: 12/01/17 08:03 Dose: 1 appl Lisinopril (Zestril) 40 mg PO DAILY STACIE Stop: 05/25/18 09:01 Last Admin: 12/01/17 08:02 Dose: 40 mg Loratadine (Claritin) 10 mg PO DAILY PRN PRN Reason: Allergy Symptoms Metoprolol Succinate (Toprol Xl) 50 mg PO DAILY [facility] Stop: 05/25/18 09:01 Last Admin: 12/01/17 08:02 Dose: 50 mg Multivitamins/Calcium (Thera M Plus) 1 tab PO DAILY [facility] Stop: 05/24/18 09:01 Last Admin: 12/01/17 08:02 Dose: 1 tab Naloxone HCl (Narcan) 0.4 mg IVP Q2MIN PRN PRN Reason: SEE COMMENTS Stop: 05/23/18 17:41 Omeprazole (Prilosec) 40 mg PO DAILY@0630 [facility] PRN Reason: Protocol Stop: 06/03/18 06:31 Ondansetron HCl (Zofran) 4 mg IVP Q8HR PRN; Protocol PRN Reason: Nausea And Vomiting Stop: 05/23/18 17:34 Oxycodone/Acetaminophen (Percocet 5/325) 1 each PO Q6HR PRN PRN Reason: Severe Pain Stop: 05/26/18 16:51 Senna/Docusate Sodium (Senna Plus) 2 each PO BID [facility] PRN Reason: Protocol Stop: 05/23/18 21:01 Last Admin: 12/01/17 08:02 Dose: 2 each Sodium Chloride ([place] Nasal [place]) 2 spray NS Q2H PRN PRN Reason: Congestion Stop: 05/31/18 10:50 Last Admin: 11/29/17 13:54 Dose: 2 spray Terazosin HCl (Hytrin) 5 mg PO BID [facility] Stop: 05/23/18 21:01 Last Admin: 12/01/17 08:02 Dose: 5 mg Tramadol HCl (Ultram) 50 mg PO Q6HR PRN PRN Reason: Moderate Pain Stop: 05/26/18 16:51 Triamcinolone Acetonide (Kenalog) 1 appl TP BID PRN PRN Reason: Rash Last Admin: 12/01/17 08:03 Dose: 1 appl Warfarin Sodium (Coumadin) 5 mg PO 1800 ONE Stop: 12/01/17 11:45 Laboratory Tests 11/30/17 12/01/17 12/01/17 03:08 04:19 04:19 Hgb 8.9 L 8.8 L Creatinine 1.16 - Imaging and Cardiology Chest Xray: report reviewed Echo: report reviewed Cardiac cath: report reviewed - EKG Interpretation EKG results cardiology: other (Telemetry reviewed with average HR previous 12 hours noted to be 74, a.fib. PVCs noted.) - VTE Documentation of Mechanical Device: Intermittent pneumatic compression device Consult Discharge Plan - Plan Instructions: Myocardial Infarction (DC), Heart Healthy Diet (DC), Fluid Restriction (DC) Additional Instructions: RISK FACTORS: STOP SMOKING: If you smoke, STOP. Smoking or tobacco use significantly increases your risk of heart disease because nicotine causes the arteries to narrow or constrict. It also causes fats to stick to the artery. Your chances of having a heart attack are greatly increased if you continue to smoke. For more information, call the education line for smoking cessation 7-600-FSUZEQV EAT A LOW FAT/CHOLESTEROL/SODIUM DIET: This diet may help reduce your chances of having a heart attack. LIFTING: With affected extremity: Avoid bending, pushing off and lifting more than 2 pounds for 24 hours The following 48 hours, avoid lifting anything more than 5 pounds Avoid strenuous activity or repetitive motions ACTIVITY: You may walk or climb stairs as tolerated You can resume sexual activity as tolerated In general, you are encouraged to engage in a minimum of 30 minutes or more of moderate intensity physical activity, such as brisk walking, daily or at least 3 -4 times weekly BATHING Do not submerge the site into water (bath tub, hot tub, swimming pool, dishes) for 1 week. This can be a source for infection into the blood stream. You may shower after 24 hours SITE CARE: After 24 hours, you may remove the dressing and leave the site open to air. Keep the site clean and dry. Clean gently and pat dry. You can expect bruising and tenderness that gradually resolve within a week or two. Return to work as instructed per your physician Resume driving as instructed per physician Keep all scheduled follow up appointments Resume medications as instructed IMPORTANT: If prescribed a Platelet Aggregation Inhibitor such as, Plavix, Brilinta or Effient: Duration of therapy is minimum one year These medications are often used in combination with Aspirin in prevention of future heart attacks Never discontinue unless consult with your [employer] STROKE (CVA) Risk factors for a stroke are: Age, cigarette smoking, diabetes, excessive alcohol consumption, family history, high blood pressure, overweight, physical inactivity, prior stroke, heart attack, diagnosis of carotid artery stenosis or other artery disease. Warning signs: Sudden numbness or weakness of the face, arm or leg; especially on one side of the body, sudden confusion, trouble speaking or understanding, sudden trouble seeing in one or both eyes, sudden trouble walking, dizziness, loss of balance or coordination, sudden severe headache with no cause. Call 911 or go to the Emergency Room. CONGESTIVE HEART FAILURE: If you have been diagnosed with Congestive Heart Failure (CHF) and your symptoms return, make an appointment with your physician Weigh yourself daily. Notify your physician if you have a weight gain of two or more pounds in one day or five or more pounds in one week. If you experience any difficulty breathing, please call 911 BLEEDING: Although the risk of bleeding is minimal, it can happen. If you have any bleeding from the site, apply firm pressure above the puncture site for 10-15 minutes. If the bleeding does not stop, continue manual pressure and call 911 Contact [facility] ( ) if: You develop a fever greater than 101 degrees Fahrenheit Your site becomes reddened or has any drainage You have an increase in pain or burning at the site or if a large knot forms at the site. If you experience chest pain, shortness of breath, dizziness, or extreme tiredness, stop the activity and rest. Please notify [facility] office if you experience any of these symptoms and they are not relieved by rest please call 911! Referrals: Bobby Andrade MD [Partnered Physician] - (cardiology office will call with appointment. ) Reilly Martin MD [Primary Care Provider] - 12/05/17 7:40 am ()
[2017-12-01 14:20] LABS: INR 1.3; Prothrombin Time 14.1 Seconds (9.4-12.1)
[2017-12-01] MEDS ORDERED: *HR* Warfarin 4 MG TABLET PO ONE (18:00)
[2017-12-01] MEDS ORDERED: Warfarin perPT PO PRN (18:00)
[2017-12-02 05:43] LABS: Hematocrit 29.2 % (37.5-50.1); Hemoglobin 9.2 g/dL (12.9-16.9); Mean Corpuscular HGB Conc 31.5 g/dL (31.6-35.5); Mean Corpuscular Hemoglobin 29.6 pg (28.0-33.3); Mean Corpuscular Volume 93.9 fL (83.0-100.0); Mean Platelet Volume 10.7 fL (9.4-12.4); Platelet Count 200 K/mcL (140-400); Red Blood Count 3.11 M/mcL (4.19-5.50)
[2017-12-02 05:47] LABS: INR 1.3; Prothrombin Time 14.1 Seconds (9.4-12.1)
[2017-12-02 06:11] LABS: BUN/Creatinine Ratio 23 (6-26); Blood Urea Nitrogen 31 mg/dL (8-23); Calcium 8.3 mg/dL (8.6-10.3); Carbon Dioxide 26 mEq/L (23-29); Chloride 108 mEq/L (98-107); Glucose 95 mg/dL (70-105); Osmolality,Calculated 296 (280-300); Potassium 3.6 mEq/L (3.5-5.1); Sodium 140 mEq/L (136-145); eGFR For African Americans > 60 (> 60); eGFR For Non-African Americans 50 (> 60)
[2017-12-02] MEDS: *HR* Enoxaparin 120 MG/0.8 ML SYRINGE SQ SCH (06:23)
[2017-12-02 06:58] VITALS: BP 141/67
[2017-12-02] MEDS: Sennosides/Docusate Sodium TABLET PO SCH (07:54)
[2017-12-02] MEDS: Furosemide 20 MG TABLET PO SCH (07:54)
[2017-12-02] MEDS: Multivit/Ca/Min/Fe/FA 1 TAB TABLET PO SCH (07:54)
[2017-12-02] MEDS: Metoprolol XL (24 HR) Succ 50 MG TAB.ER.24H PO SCH (07:54)
[2017-12-02] MEDS: Lisinopril 20 MG TABLET PO SCH (07:54)
[2017-12-02] MEDS: Aspirin Enteric Coated 81 MG Tablet PO SCH (07:54)
--- NOTE | 2017-12-02 11:29 | Discharge Summary ---
Orders not resulted at time of discharge: Pending orders 11/23/17 16:14 NM muga rest single study [NM] Routine 11/30/17 17:42 ECG 12 lead ECG [ECG] Routine 12/01/17 06:00 ECG 12 lead ECG [ECG] AM 0600 12/03/17 04:00 PT/INR [Prothrombin Time INR] [COAG] AM 0400 12/04/17 04:00 PT/INR [Prothrombin Time INR] [COAG] AM 0400 12/05/17 04:00 PT/INR [Prothrombin Time INR] [COAG] AM 0400 Date of Encounter: 12/02/17 Time of Encounter: 10:30 - Discharge Diagnosis (1) Atrial fibrillation Priority: Primary Status: Chronic Comments: A.fib noted. HR controlled. Coumadin started. Qualifiers: Atrial fibrillation type: unspecified Qualified Code(s): I48.91 - Unspecified atrial fibrillation (2) NSTEMI (non-ST elevated myocardial infarction) Priority: Secondary Status: Acute Comments: NSTEMI, LHC with stenting. (3) CAD (coronary artery disease) Priority: Secondary Status: Acute Comments: [facility] Qualifiers: Coronary Disease-Associated Artery/Lesion type: [place] artery [place] vs. transplanted heart: [place] heart Associated angina: without angina Qualified Code(s): I25.10 - Atherosclerotic heart disease of [place] coronary artery without angina pectoris (4) Hematoma Priority: Secondary Status: Acute Comments: Stable, hemoglobin stable. (5) Cardiomyopathy Priority: Secondary Status: Acute Comments: On beta evangelista and hugh inihibitor. Qualifiers: Cardiomyopathy type: ischemic Qualified Code(s): I25.5 - Ischemic cardiomyopathy (6) Sleep apnea Priority: Secondary Status: Acute Comments: Will be discharged with O2 per NC at night. Qualifiers: Sleep apnea type: unspecified type Qualified Code(s): G47.30 - Sleep apnea , unspecified - Hospital Course Hospital course: Mr. Sanchez is a 82 year old male who was admitted with increased shortness of breath. Patient was noted to be in a.fib, have elevated troponins, and CHF. TTE was performed and LVEF was noted to be severely reduced at 35-40%. LHC was performed and severe multi-vessel CAD was noted. Patient was evaluated by CT surgery and patient declined CABG. Patient elected for high risk PCI. Following first LHC, patient had significant hematoma to right groin area. Hemoglobin declined. Patient was watched and monitored. Patient underwent staged PCI on Sunday with MOE placed to proximal circumflex and mid LAD. On asa and plavix. Educated on dual anti-platelet therapy uninterrupted for at least one year, unless otherwise directed by cardiology. Right radial access site without hematoma or ecchymosis. Right groin and right radial access site management education reviewed with patient and family. Patient was volume overloaded on exam, CHF. Patient was diuresed and is feeling much better. CHF education reviewed with pateint and family. Regarding atrial fibrillation, patient is on beta evangelista and has been rate controlled. Patient was started on coumadin for anticoagulation. INR 1.4 today. Patient is being bridged with lovenox per 's recommendations. has been instructed and re-demonstrated efficient giving of lovenox injection. Referral to coumadin clinic sent. INR will be monitored by [facility] until seen by coumadin clinic. OF note, will follow with coumadin clinic in [facility]. During hospital stay, it was noted that patient's SpO2. decreased during sleep and was placed on O2 per nasal cannula. Overnight trending pulse ox was performed last night with patient meeting qualifications for O2 at night. Nebulizer treatments were ruled out due to hypoxia with SpO2 85% on room air at night. Patient is being prepped for discharge home today in stable condition. All questions answered. Patient will follow with [facility], follow up set. Patient educated to call cardiology for any questions or concerns. - Time Spent with Patient Total time spent providing and/or coordinating discharge services: Less than 30 minutes - Discharge Medications Prescriptions: Enoxaparin [Lovenox] 120 mg SQ Q12HR #6 syringe Atorvastatin [Lipitor] 80 mg PO HS #30 tablet Clopidogrel [Plavix] 75 mg PO DAILY #30 tablet Furosemide [Lasix] 20 mg PO BIDDIURETIC #60 tablet Metoprolol XL (24 HR) Succ [Toprol Xl] 50 mg PO DAILY #30 tab.er.24h Omeprazole [PriLOSEC] 40 mg PO DAILY@0630 #30 capsule. Warfarin [Coumadin] 4 mg PO 1800 #6 tablet Home Medications: Aspirin Enteric Coated [Aspirin EC] 81 mg PO DAILY 11/21/17 [History] Cetirizine HCl [Zyrtec] 10 mg PO DAILY PRN 11/21/17 [History] Chlordiazepoxide [Librium] 5 mg PO TID PRN 11/21/17 [History] Fexofenadine HCl [Allergy Relief] 180 mg PO DAILY PRN 11/21/17 [History] Fluticasone Propionate Nasal [Flonase] 100 mcg NS DAILY PRN 11/21/17 [History] Lisinopril [Zestril] 40 mg PO BID 11/21/17 [History] Multivitamin [One Daily Multivitamin] 1 each PO DAILY 11/21/17 [History] Terazosin [Hytrin] 5 mg PO BID 11/21/17 [History] Triamcinolone Acetonide 1 appl TP BID PRN 11/21/17 [History] Atorvastatin [Lipitor] 80 mg PO HS #30 tablet 12/02/17 [Rx] Clopidogrel [Plavix] 75 mg PO DAILY #30 tablet 12/02/17 [Rx] Enoxaparin [Lovenox] 120 mg SQ Q12HR #6 syringe 12/02/17 [Rx] Furosemide [Lasix] 20 mg PO BIDDIURETIC #60 tablet 12/02/17 [Rx] Metoprolol XL (24 HR) Succ [Toprol Xl] 50 mg PO DAILY #30 tab.er.24h 12/02/17 [ Rx] Omeprazole [PriLOSEC] 40 mg PO DAILY@0630 #30 capsule.dr 12/02/17 [Rx] Warfarin [Coumadin] 4 mg PO 1800 #6 tablet 12/02/17 [Rx] Allergies/Adverse Reactions: 3 Allergy/AdvReac Type Severity Reaction Status Date / Time Penicillins Allergy Rash Verified 11/21/17 13:18 Date of admission: 11/21/17 17:40 Primary care physician: Reilly Martin MD Consults: 11/22/17 14:21 Consult to Nurse Navigator [CONS] Routine Comment: CHF 11/23/17 15:32 Consult to Cardiac Rehabilitation-Phase1 [CONS] Routine Comment: Reason for Consult: post op diagnostic cath Call Completed: Yes 11/23/17 15:33 Consult to Cardiothoracic Surgery [CONS] Routine Consulting Provider: Cardiothoracic Surgery Rocio Reason for Consult: possible CABG Call Completed: Yes 11/26/17 15:37 Consult to Wound Care [CONS] Routine Reason for Consult: S/P HEMATOMA FROM HEART CATH, SCROTUM LEAKING BLOODY FLUID Call Completed: Yes Discharging clinician: Mary Castillo Anticipated date of discharge: 12/02/17 Physical Examination Vital Signs Temperature 98.1 F 12/02/17 06:57 Pulse Rate 77 12/02/17 06:57 Respiratory Rate 18 12/02/17 06:57 Blood Pressure 141/67 12/02/17 06:57 O2 Sat by Pulse Oximetry 94 12/02/17 06:57 Oxygen Delivery Oxygen Delivery Room Air General: Conversant, No Apparent Distress HEENT: Atraumatic, Normocephaly, Mucus Membranes Moist Neck: No JVD, Normal carotid pulses Cardiac: Normal S1 and S2, No Murmur, Other (Irregularly irregular) Lungs: Normal Breath Sounds, No Wheeze, Rales, Rhonchi Neuro: Alert and responsive, No focal deficits noted Abdomen: Soft, Non-Tender Skin: No rashes noted on visualized skin, Other (Right groin access site with large area of ecchymosis. Right radial access site without hematoma or ecchymosis. ) Musculoskeletal: No Chest Wall Tenderness Extremities: No Clubbing, No Cyanosis, Normal Pulses, Other (Mild bilateral pedal edema noted. ) - Patient Status Disposition: Home, Self-Care Condition: Good Functional capacity at discharge: independent ambulation Overall status at discharge: patient is progressing back to baseline - Discharge Instructions Instructions: Myocardial Infarction (DC), Heart Healthy Diet (DC), Fluid Restriction (DC) Follow Up With: Bobby Andrade MD [Partnered Physician] - (cardiology office will call with appointment. ) Reilly Martin MD [Primary Care Provider] - 12/05/17 7:40 am () Additional Instructions: CALL [facility] OXYGEN WHEN YOU GET HOME TO COME SET UP OXYGEN CONCENTRATOR. RISK FACTORS: STOP SMOKING: If you smoke, STOP. Smoking or tobacco use significantly increases your risk of heart disease because nicotine causes the arteries to narrow or constrict. It also causes fats to stick to the artery. Your chances of having a heart attack are greatly increased if you continue to smoke. For more information, call the education line for smoking cessation 3-237-SISMHSI EAT A LOW FAT/CHOLESTEROL/SODIUM DIET: This diet may help reduce your chances of having a heart attack. LIFTING: With affected extremity: Avoid bending, pushing off and lifting more than 2 pounds for 24 hours The following 48 hours, avoid lifting anything more than 5 pounds Avoid strenuous activity or repetitive motions ACTIVITY: You may walk or climb stairs as tolerated You can resume sexual activity as tolerated In general, you are encouraged to engage in a minimum of 30 minutes or more of moderate intensity physical activity, such as brisk walking, daily or at least 3 -4 times weekly BATHING Do not submerge the site into water (bath tub, hot tub, swimming pool, dishes) for 1 week. This can be a source for infection into the blood stream. You may shower after 24 hours SITE CARE: After 24 hours, you may remove the dressing and leave the site open to air. Keep the site clean and dry. Clean gently and pat dry. You can expect bruising and tenderness that gradually resolve within a week or two. Return to work as instructed per your physician Resume driving as instructed per physician Keep all scheduled follow up appointments Resume medications as instructed IMPORTANT: If prescribed a Platelet Aggregation Inhibitor such as, Plavix, Brilinta or Effient: Duration of therapy is minimum one year These medications are often used in combination with Aspirin in prevention of future heart attacks Never discontinue unless consult with your [employer] STROKE (CVA) Risk factors for a stroke are: Age, cigarette smoking, diabetes, excessive alcohol consumption, family history, high blood pressure, overweight, physical inactivity, prior stroke, heart attack, diagnosis of carotid artery stenosis or other artery disease. Warning signs: Sudden numbness or weakness of the face, arm or leg; especially on one side of the body, sudden confusion, trouble speaking or understanding, sudden trouble seeing in one or both eyes, sudden trouble walking, dizziness, loss of balance or coordination, sudden severe headache with no cause. Call 911 or go to the Emergency Room. CONGESTIVE HEART FAILURE: If you have been diagnosed with Congestive Heart Failure (CHF) and your symptoms return, make an appointment with your physician Weigh yourself daily. Notify your physician if you have a weight gain of two or more pounds in one day or five or more pounds in one week. If you experience any difficulty breathing, please call 911 BLEEDING: Although the risk of bleeding is minimal, it can happen. If you have any bleeding from the site, apply firm pressure above the puncture site for 10-15 minutes. If the bleeding does not stop, continue manual pressure and call 911 Contact [facility] ( ) if: You develop a fever greater than 101 degrees Fahrenheit Your site becomes reddened or has any drainage You have an increase in pain or burning at the site or if a large knot forms at the site. If you experience chest pain, shortness of breath, dizziness, or extreme tiredness, stop the activity and rest. Please notify [facility] office if you experience any of these symptoms and they are not relieved by rest please call 911! - Diet and Activity Activity: increase activity as tolerated Diet: low fat, low cholesterol, low salt diet - VTE Documentation of Mechanical Device: Graduated compression elastic hosiery
[2017-12-02] MEDS ORDERED: *HR* Warfarin 4 MG TABLET PO ONE (18:00)
== END 2017-12-02 14:04 | disposition home or self-care (01) | DRG 246 ==
LOC: 2ANU 13:08 → EMEROO 13:08 → SUATTDRO 17:40 → 2ANU 17:50 → 2NNU 11-24 18:03
PROVIDERS: ADMIT Student in an Organized Health Care Education/Training Program; ATTEND Internal Medicine

== ENCOUNTER 2019-11-21 21:45 | Observation (INO) ==
[2019-11-21 23:07] LABS: Basophils % 0.4 %; Eosinophils # 0.1 K/mcL (0.0-0.6); Eosinophils % 1.5 %; Hemoglobin 8.6 g/dL (12.9-16.9); Immature Granulocytes % 0.2 % (0-4); Lymphocytes # 0.6 K/mcL (0.6-4.6); Lymphocytes % 11.6 %; Mean Corpuscular HGB Conc 31.9 g/dL (31.6-35.5); Mean Corpuscular Hemoglobin 29.7 pg (28.0-33.3); Mean Corpuscular Volume 93.1 fL (83.0-100.0); Mean Platelet Volume 11.8 fL (9.4-12.4); Monocytes # 0.5 K/mcL (0.0-1.3); Monocytes % 9.5 %; Neutrophils # 4.2 K/mcL (1.6-8.9); Platelet Count 147 K/mcL (140-400); Red Cell Distribution Width 17.3 % (11.5-14.5); Segmented Neutrophils % 76.8 %; White Blood Count 5.5 K/mcL (4.3-11.1)
[2019-11-21 23:27] LABS: Albumin 3.1 g/dL (3.5-5.7); Albumin/Globulin Ratio 0.9 (1.1-2.2); Bilirubin,Direct 0.4 mg/dL (0.0-0.2); Bilirubin,Indirect 0.6 mg/dL (0.0-1.0); Calcium 8.5 mg/dL (8.6-10.3); Globulin 3.5 g/dL (2.4-3.5); Potassium 3.9 mEq/L (3.5-5.1); Total Protein 6.6 g/dL (6.4-8.9)
[2019-11-22] MEDS ORDERED: Ondansetron 4 MG/2 ML VIAL IVP PRN (01:11)
[2019-11-22] MEDS ORDERED: Acetaminophen 325 MG TABLET PO PRN (01:11)
[2019-11-22] MEDS ORDERED: Triamcinolone Acet 0.1% CRM 15 GM TUBE TP PRN (01:16)
[2019-11-22] MEDS ORDERED: Loratadine 10 MG TABLET PO PRN (01:16)
[2019-11-22] MEDS ORDERED: NON-FORMULARY MEDICATION 1 EACH EACH (Fexofenadine Hcl [Allergy Relief] 180 MG) PO PRN (01:16)
[2019-11-22] MEDS ORDERED: Furosemide 20 MG/2 ML VIAL IVP SCH (01:30)
[2019-11-22] MEDS ORDERED: Naloxone 0.4 MG/ML INJ IVP PRN (02:08)
[2019-11-22 06:46] VITALS: BP 146/60
[2019-11-22 06:49] LABS: INR 2.6; Prothrombin Time 29.1 Seconds (9.4-12.1)
[2019-11-22 06:51] LABS: Basophils % 0.4 %; Eosinophils # 0.1 K/mcL (0.0-0.6); Eosinophils % 1.6 %; Hematocrit 25.6 % (37.5-50.1); Hemoglobin 8.2 g/dL (12.9-16.9); Immature Granulocytes % 0.2 % (0-4); Lymphocytes # 0.5 K/mcL (0.6-4.6); Lymphocytes % 11.9 %; Mean Corpuscular Hemoglobin 29.5 pg (28.0-33.3); Mean Corpuscular Volume 92.1 fL (83.0-100.0); Mean Platelet Volume 11.5 fL (9.4-12.4); Monocytes # 0.5 K/mcL (0.0-1.3); Monocytes % 10.6 %; Neutrophils # 3.4 K/mcL (1.6-8.9); Platelet Count 140 K/mcL (140-400); Red Blood Count 2.78 M/mcL (4.19-5.50); Red Cell Distribution Width 17.2 % (11.5-14.5); Segmented Neutrophils % 75.3 %; White Blood Count 4.5 K/mcL (4.3-11.1)
[2019-11-22 07:09] LABS: % Iron Saturation 13 % (20-55); Iron 31 mcg/dL (65-175); Transferrin 172 mg/dL (203-362)
[2019-11-22] MEDS ORDERED: amLODIPine 5 MG TABLET PO SCH (09:00)
[2019-11-22] MEDS ORDERED: Aspirin Enteric Coated 81 MG Tablet PO SCH (09:00)
[2019-11-22 14:15] LABS: Calcium 8.4 mg/dL (8.6-10.3); Potassium 3.9 mEq/L (3.5-5.1)
[2019-11-22 14:17] LABS: Magnesium 1.9 mg/dL (1.6-2.6)
[2019-11-22] MEDS ORDERED: *HR* Warfarin 4 MG TABLET PO SCH (18:00)
[2019-11-23 04:14] LABS: Folate > 22.3 ng/mL (3.0-16.0); Vitamin B12 717 pg/mL (250-1100)
== END 2019-11-22 18:00 | disposition home or self-care (01) ==
LOC: 2NENU 21:45 → EMEROOARM 21:45 → 2NENU 11-22 01:33
PROVIDERS: ADMIT Internal Medicine; ATTEND Internal Medicine